=== PATIENT | male | born 1960 | race African-American/Black ===

== ENCOUNTER 2017-03-16 17:36 | Inpatient (IN) | payer OTHER, MEDICARE ==
[~2017-03-16] VITALS: Ht 180.3 cm; Wt 55.4 kg
[~2017-03-16 17:36] MED LIST: ALEN70TA39 PO; ASPI1TAB7 PO; COUM1TAB PO; DILT90TA PO; ENAL20TA81 PO; FERR324T4 PO; MAGN400T PO; PRAV80 PO; SITA100 PO; THIA100T PO; ZETI10TA5 PO
[2017-03-16 17:38] VITALS: BP 120/80; PULSE 86; RESP 12; TEMP 99; O2SAT 98
[2017-03-16 18:24] LABS: WHITE BLOOD COUNT 11.2 TH/MM3 (4.0-11.0)
[2017-03-16 18:25] LABS: AUTOMATED NEUTROPHIL # 7.1 TH/MM3 (1.8-7.7); BASOPHIL # 0.1 TH/MM3 (0-0.2); BASOPHIL % 1.1 % (0.0-2.0); EOSINOPHIL # 0.2 TH/MM3 (0-0.4); EOSINOPHIL % 1.9 % (0.0-4.0); HEMATOCRIT 30.7 % (39.0-51.0); HEMO FLAGS DIFF FINAL; LYMPH % 23.3 % (9.0-44.0); LYMPHOCYTE # 2.6 TH/MM3 (1.0-4.8); MEAN CORPUSCULAR HEMOGLOBIN 22.6 PG (27.0-34.0); MEAN CORPUSCULAR HGB CONC 31.3 % (32.0-36.0); MONO % 10.3 % (0.0-8.0); NEUT % 63.4 % (16.0-70.0); PLATELET COUNT 268 TH/MM3 (150-450); RED BLOOD COUNT 4.26 MIL/MM3 (4.50-5.90); RED CELL DISTRIBUTION WIDTH 21.8 % (11.6-17.2)
--- NOTE | 2017-03-16 18:33 | PD ---
HPI Chief Complaint: Respiratory Symptoms Time Seen by Provider: 18:19 Travel History International Travel<30 days: No Contact w/Intl Traveler<30days: No Traveled to known affect area: No History of Present Illness HPI 56-year-old male with PMH of DM, HTN, CAD VA, AICD, EF 25%, CKD stage III, iron deficiency anemia on Coumadin presents to the ED for evaluation of "a few days" history of worsening shortness of breath, dyspnea on exertion. The patient denies fever, chills, cough, chest pain, abdominal pain, nausea, vomiting, lower extremity edema. He does not use oxygen at home. He is followed by Dr. Eaton, cardiology and Dr. Huntley, PCP. [facility] Past Medical History Atrial Fibrillation: Yes Blood Disorders: No Heart Rhythm Problems: Yes Cancer: No Cardiac Catheterization: Yes Cardiovascular Problems: Yes (CM-AICD, EF 25%) High Cholesterol: No Chest Pain: Yes Congestive Heart Failure: No Cerebrovascular Accident: Yes Diabetes: Yes (METFORMIN) Diminished Hearing: No Endocrine: No Gastrointestinal Disorders: No Genitourinary: No Hypertension: Yes Immune Disorder: No Musculoskeletal: No Neurologic: Yes Psychiatric: No Reproductive: No Respiratory: No Myocardial Infarction: No Past Surgical History AICD: Yes (BIOTRONIC) Body Medical Devices: DEFIBRILLATOR Cardiac Surgery: Yes (DEFIBRILATOR) Coronary Artery Bypass Graft: No Joint Replacement: No Social History Alcohol Use: Yes ("SOMETIMES") Tobacco Use: No Substance Use: Yes (MARIJUANA USE ONCE A WEEK) Allergies-Medications (Allergen,Severity, Reaction): Coded Allergies: No Known Allergies (Verified Allergy, Unknown, 03/16/17) Reported Meds & Prescriptions Reported Meds & Active Scripts Active Reported Vasotec (Enalapril Maleate) 20 Mg Tab 20 Mg PO BID Januvia (Sitagliptin Phosphate) 100 Mg Tab 100 Mg PO DAILY Cardizem (Diltiazem HCl) 60 Mg Tab 180 Mg PO DAILY Alendronate (Alendronate Sodium) 70 Mg Tab 70 Mg PO Q7D Bumetanide 1 Mg Tab 1 Mg PO BID Carvedilol 6.25 Mg Tab 6.25 Mg PO BID Ferrous Sulfate 325 Mg (65 Mg Iron) Tablet 325 Mg PO DAILY Amiodarone (Amiodarone HCl) 200 Mg Tab 200 Mg PO DAILY Tamsulosin (Tamsulosin HCl) 0.4 Mg Cap 0.4 Mg PO DAILY Megestrol Acetate 400 Mg/10 Ml (10 Ml) Oral.susp 400 Mg PO DIRECTED Lyrica (Pregabalin) 50 Mg Cap 50 Mg PO BID Ezetimibe 10 Mg Tab 10 Mg PO HS Metformin (Metformin HCl) 500 Mg Tab 500 Mg PO BIDPC Xarelto (Rivaroxaban) 20 Mg Tab 20 Mg PO DAILY Magnesium Oxide 400 Mg Tab 400 Mg PO DAILY Aspirin EC (Aspirin) 81 Mg Tabdr 81 Mg PO DAILY Vitamin D3 (Cholecalciferol) 1,000 Unit Tab 5,000 Units PO DAILY Review of Systems Except as stated in HPI: all other systems reviewed are Neg Physical Exam Narrative GENERAL: Thin black male in no acute distress. SKIN: Focused skin assessment warm/dry. AICD prominent on the left chest wall with well-healed surgical scar with no signs of infection. HEAD: Normocephalic. EYES: No scleral icterus. No injection or drainage. NECK: Supple, trachea midline. No JVD or lymphadenopathy. CARDIOVASCULAR: Regular rate and rhythm without murmurs, gallops, or rubs. RESPIRATORY: Breath sounds clear and equal bilaterally. Tachypneic. Positive accessory muscle use. GASTROINTESTINAL: Abdomen soft, non-tender, nondistended. Active bowel sounds. MUSCULOSKELETAL: No cyanosis, or edema. BACK: Nontender without obvious deformity. No CVA tenderness. Data Data Last Documented VS Vital Signs Date Time Temp Pulse Resp B/P (MAP) Pulse Ox O2 Delivery O2 Flow Rate FiO2 03/16/17 18:53 82 34 114/55 (74) 99 Nasal Cannula 2.00 03/16/17 17:38 99.0 Orders Orders Complete Blood Count With Diff (03/16/17 17:52) Comprehensive Metabolic Panel (03/16/17 17:52) B-Type Natriuretic Peptide (03/16/17 17:52) Magnesium (Mg) (03/16/17 17:52) Electrocardiogram (03/16/17 17:52) Chest, Pa & Lat (03/16/17 17:52) Troponin I (03/16/17 18:26) Iv Access Insert/Monitor (03/16/17 18:26) Ecg Monitoring (03/16/17 18:26) Oximetry (03/16/17 18:26) Coag Profile (03/16/17 19:31) Furosemide Inj (Lasix Inj) (03/16/17 20:15) Admit Order (Ed Use Only) (03/16/17 20:46) Labs Laboratory Tests Test 03/16/17 18:10 03/16/17 19:50 White Blood Count 11.2 TH/MM3 Red Blood Count 4.26 MIL/MM3 Hemoglobin 9.6 GM/DL Hematocrit 30.7 % Mean Corpuscular Volume 72.0 FL Mean Corpuscular Hemoglobin 22.6 PG Mean Corpuscular Hemoglobin Concent 31.3 % Red Cell Distribution Width 21.8 % Platelet Count 268 TH/MM3 Mean Platelet Volume 8.5 FL Neutrophils (%) (Auto) 63.4 % Lymphocytes (%) (Auto) 23.3 % Monocytes (%) (Auto) 10.3 % Eosinophils (%) (Auto) 1.9 % Basophils (%) (Auto) 1.1 % Neutrophils # (Auto) 7.1 TH/MM3 Lymphocytes # (Auto) 2.6 TH/MM3 Monocytes # (Auto) 1.2 TH/MM3 Eosinophils # (Auto) 0.2 TH/MM3 Basophils # (Auto) 0.1 TH/MM3 CBC Comment DIFF FINAL Differential Comment Blood Urea Nitrogen 65 MG/DL Creatinine 2.62 MG/DL Random Glucose 119 MG/DL Total Protein 8.5 GM/DL Albumin 3.0 GM/DL Calcium Level 9.1 MG/DL Magnesium Level 2.4 MG/DL Alkaline Phosphatase 65 U/L Aspartate Amino Transf (AST/SGOT) 15 U/L Alanine Aminotransferase (ALT/SGPT) 16 U/L Total Bilirubin 0.4 MG/DL Sodium Level 138 MEQ/L Potassium Level 3.9 MEQ/L Chloride Level 101 MEQ/L Carbon Dioxide Level 21.1 MEQ/L Anion Gap 16 MEQ/L Estimat Glomerular Filtration Rate 31 ML/MIN Troponin I 0.05 NG/ML B-Type Natriuretic Peptide 3302 PG/ML Prothrombin Time 17.4 SEC Prothromb Time International Ratio 1.5 RATIO Activated Partial Thromboplast Time 41.5 SEC MDM Medical Decision Making Medical Screen Exam Complete: Yes Emergency Medical Condition: Yes Differential Diagnosis CHF exacerbation versus PNA versus ACS versus metabolic derangement versus other Narrative Course 56-year-old male with PMH of DM, HTN, CAD VA, AICD, EF 25%, CKD stage III on Coumadin presents to the ED for evaluation of "a few days" history of worsening shortness of breath, dyspnea on exertion. The patient denies fever, chills, cough, chest pain, abdominal pain, nausea, vomiting, lower extremity edema. He does not use oxygen at home. He is followed by Dr. Eaton, cardiology and Dr. Huntley, PCP. EKG: Rate 89, paced rhythm. No acute ST changes. Reviewed by Dr. Hardy. CXR: Cardiomegaly with pulmonary vascular engorgement. No infiltrates or effusions per radiology read. Troponin: Negative 1 BNP: 330INR: pending CBC: WBC 11.2. Hemoglobin 9.6. CMP: BUN 65, creatinine 2.62. GFR 31. Per record review baseline creatinine 1.72-1.48. I discussed the results of the workup with the patient's family. They're agreeable to admission. I discussed the patient with Dr. Saldaña who agrees to accept the patient to the medicine service. Please see medicine notes for disposition. Betty Raymond Mar 16, 2017 18:33
[2017-03-16 18:40] VITALS: O2SAT 98
[2017-03-16 18:44] LABS: ALT (GPT) 16 U/L (12-78); ANION GAP 16 MEQ/L (5-15); AST (GOT) 15 U/L (15-37); BICARBONATE 21.1 MEQ/L (21.0-32.0); BLOOD UREA NITROGEN 65 MG/DL (7-18); CHLORIDE 101 MEQ/L (98-107); GLOMERULAR FILTRATION RATE 31 ML/MIN (>89); MAGNESIUM 2.4 MG/DL (1.5-2.5); POTASSIUM 3.9 MEQ/L (3.5-5.1); SODIUM (NA) 138 MEQ/L (136-145)
[2017-03-16 18:47] LABS: ALKALINE PHOSPHATASE 65 U/L (45-117); TOTAL BILIRUBIN ADULT 0.4 MG/DL (0.2-1.0)
[2017-03-16 18:53] VITALS: BP 114/55; PULSE 82; RESP 34; O2SAT 99
[2017-03-16] MEDS ORDERED: BUME1TAB PO (19:00)
[2017-03-16] MEDS ORDERED: CARV6.252 PO (19:00)
[2017-03-16] MEDS ORDERED: TAMS0.4C4 PO (19:00)
[2017-03-16] MEDS ORDERED: METF500T PO (19:00)
[2017-03-16] MEDS ORDERED: LYRI50CA PO (19:00)
[2017-03-16] MEDS ORDERED: AMIO200T PO (19:00)
[2017-03-16] MEDS ORDERED: MAGN400T2 PO (19:00)
[2017-03-16] MEDS ORDERED: EZET1TAB8 PO (19:00)
[2017-03-16] MEDS ORDERED: FERR325T18 PO (19:00)
[2017-03-16] MEDS ORDERED: ALEN1TAB48 PO (19:00)
[2017-03-16] MEDS ORDERED: VITA100064 PO (19:00)
[2017-03-16] MEDS ORDERED: XARE20TA PO (19:00)
[2017-03-16] MEDS ORDERED: ASPI81TA23 PO (19:00)
[2017-03-16] MEDS ORDERED: MEGE5SUS3 PO (19:00)
[2017-03-16] MEDS ORDERED: ENAL20TA81 PO (19:10)
[2017-03-16] MEDS ORDERED: SITA1TAB2 PO (19:10)
[2017-03-16] MEDS ORDERED: DILT60TA33 PO (19:10)
--- NOTE | 2017-03-16 19:38 | RADRPT ---
EXAM DATE/TIME: 03/16/2017 19:13 [facility] COMPARISON: CHEST SINGLE AP, January 31, 2015, 2:33. INDICATIONS : Shortness of breath. MEDICAL HISTORY : Hypercholesterolemia. Hypertension AFIB SURGICAL HISTORY : Defibrilator. ENCOUNTER: Initial ACUITY: 2 weeks PAIN SCORE: 0/10 LOCATION: Bilateral chest FINDINGS: PA and lateral views of the chest show moderate cardiomegaly with pulmonary vascular engorgement. Cep halization of flow noted. No discrete infiltrate or effusion. Pacing device overlies the left chest. Bony structures are unremarkable. CONCLUSION: Cardiomegaly with pulmonary vascular engorgement. No infiltrates or effusions. Reese Skinner Jr., MD on March 16, 2017 at 19:36 Board Certified Radiologist. This report was verified electronically.
[2017-03-16] MEDS ORDERED: FUROSEMIDE 40 MG/4 ML VIAL IV PUSH ONE (20:15)
[2017-03-16 20:44] LABS: APTT (PATIENT) 41.5 SEC (24.3-30.1); INTERNATIONAL NORMALIZED RATIO 1.5 RATIO; PROTHROMBIN TIME - PATIENT 17.4 SEC (9.8-11.6)
--- NOTE | 2017-03-16 20:58 | HHI.HP ---
HPI Service [facility] Primary Care Physician Samir Garcia DO Admission Diagnosis CHF exacerbation, acute on chronic renal failure Diagnoses: (1) CHF (congestive heart failure) (2) Renal insufficiency Diagnosis: Principal (3) A-fib Diagnosis: Principal (4) DM (diabetes mellitus) Diagnosis: Principal Travel History International Travel<30 Days: No Contact w/Intl Traveler <30 Da: No Traveled to Known Affected Are: No History of Present Illness This is a 56-year-old male with a PMH of HTN, Hyperlipidemia, CAD, CHF (Echo w/ EF 35-40%), AICD, Afib on Coumadin and CKD Stage III who presented to the ER w/ complaints of SOB x2-3 days. States symptoms worse w/ exertion. Denies chest pain, cough, fever or sick contacts. On arrival, BP 120/80, HR 86 , O2 sat 98% on RA, Temp 99.0. CBC unremarkable except for diabetes 11.2. Creatinine 2.62, producing 1.72 on 01/31/15. BNP 3302. Troponin 0.05. INR 1.5. CXR with cardiomegaly and pulmonary vascular engorgement, no infiltrates or effusions. S/p Lasix 40mg IV in ER. Review of Systems Except as stated in HPI: all other systems reviewed are Neg ROS: 14 point review of systems otherwise negative. Past Family Social History Past Medical History PMH: HTN, Hyperlipidemia, CAD, CHF (Echo 06/03/13 w/ EF 35-40%), AICD, Afib on Coumadin and CKD Stage III Past Surgical History PAST SURGICAL HISTORY: AICD (Biotronik) Allergies: Coded Allergies: No Known Allergies (Verified Allergy, Unknown, 03/16/17) Family History PAST FAMILY HISTORY: Reviewed, positive for DM and CAD Social History PAST SOCIAL HISTORY: Occasional alcohol. Negative for tobacco. +Marijuana. Physical Exam Vital Signs Vital Signs Date Time Temp Pulse Resp B/P (MAP) Pulse Ox O2 Delivery O2 Flow Rate FiO2 03/16/17 18:53 82 34 114/55 (74) 99 Nasal Cannula 2.00 03/16/17 18:40 98 Room Air 03/16/17 17:38 99.0 86 12 120/80 (93) 98 Physical Exam PE: GENERAL: Pleasant middle-aged black male in no acute distress. HEENT: PERRLA, EOMI. No scleral icterus or conjunctival pallor. No lid lag or facial droop. CARDIOVASCULAR: Regular rate and rhythm. No obvious murmurs to auscultation. No chest tenderness to palpation. Left AICD RESPIRATORY: No obvious rhonchi or wheezing. Clear to auscultation. Breath sounds equal bilaterally. GASTROINTESTINAL: Abdomen soft, non-tender, nondistended. BS normal. MUSCULOSKELETAL: Extremities without clubbing, cyanosis, or edema. No obvious deformities. NEUROLOGICAL: Awake, alert and oriented x4. No focal neurologic deficits. Moving both upper and lower extremities spontaneously. Laboratory Laboratory Tests Test 03/16/17 18:10 03/16/17 19:50 White Blood Count 11.2 Red Blood Count 4.26 Hemoglobin 9.6 Hematocrit 30.7 Mean Corpuscular Volume 72.0 Mean Corpuscular Hemoglobin 22.6 Mean Corpuscular Hemoglobin Concent 31.3 Red Cell Distribution Width 21.8 Platelet Count 268 Mean Platelet Volume 8.5 Neutrophils (%) (Auto) 63.4 Lymphocytes (%) (Auto) 23.3 Monocytes (%) (Auto) 10.3 Eosinophils (%) (Auto) 1.9 Basophils (%) (Auto) 1.1 Neutrophils # (Auto) 7.1 Lymphocytes # (Auto) 2.6 Monocytes # (Auto) 1.2 Eosinophils # (Auto) 0.2 Basophils # (Auto) 0.1 CBC Comment DIFF FINAL Differential Comment Blood Urea Nitrogen 65 Creatinine 2.62 Random Glucose 119 Total Protein 8.5 Albumin 3.0 Calcium Level 9.1 Magnesium Level 2.4 Alkaline Phosphatase 65 Aspartate Amino Transf (AST/SGOT) 15 Alanine Aminotransferase (ALT/SGPT) 16 Total Bilirubin 0.4 Sodium Level 138 Potassium Level 3.9 Chloride Level 101 Carbon Dioxide Level 21.1 Anion Gap 16 Estimat Glomerular Filtration Rate 31 Troponin I 0.05 Prothrombin Time 17.4 Prothromb Time International Ratio 1.5 Activated Partial Thromboplast Time 41.5 Result Diagram: 03/16/17180903/16/171809 Caprini VTE Risk Assessment Caprini VTE Risk Assessment: Mod/High Risk (score >= 2) Caprini Risk Assessment Model Point Value = 1 Point Value = 2 Point Value = 3 Point Value = 5 Age 41-60 Minor surgery BMI > 25 kg/m2 Swollen legs Varicose veins or History of unexplained or recurrent spontaneous Oral contraceptives or hormone replacement Sepsis (< 1 month) Serious lung disease, including pneumonia (< 1 month) Abnormal pulmonary function Acute myocardial infarction Congestive heart failure (< 1 month) History of inflammatory bowel disease Medical patient at bed rest Age 61-74 Arthroscopic surgery Major open surgery (> 45 min) Laparoscopic surgery (> 45 min) Malignancy Confined to bed (> 72 hours) Immobilizing plaster cast Central venous access Age >= 75 History of VTE Family history of VTE Factor V Leiden Prothrombin [id number] Lupus anticoagulant Anticardiolipin antibodies Elevated serum homocysteine Heparin-induced thrombocytopenia Other congenital or acquired thrombophilia Stroke (< 1 month) Elective arthroplasty Hip, pelvis, or leg fracture Acute spinal cord injury (< 1 month) Prophylaxis Regimen Total Risk Factor Score Risk Level Prophylaxis Regimen 0-1 Low Early ambulation 2 Moderate Order ONE of the following: *Sequential Compression Device (SCD) *Heparin 5000 units SQ BID 3-4 Higher Order ONE of the following medications: *Heparin 5000 units SQ TID *Enoxaparin/Lovenox 40 mg SQ daily (WT < 150 kg, CrCl > 30 mL/min) *Enoxaparin/Lovenox 30 mg SQ daily (WT < 150 kg, CrCl > 10-29 mL/min) *Enoxaparin/Lovenox 30 mg SQ BID (WT < 150 kg, CrCl > 30 mL/min) AND/OR *Sequential Compression Device (SCD) 5 or more Highest Order ONE of the following medications: *Heparin 5000 units SQ TID (Preferred with Epidurals) *Enoxaparin/Lovenox 40 mg SQ daily (WT < 150 kg, CrCl > 30 mL/min) *Enoxaparin/Lovenox 30 mg SQ daily (WT < 150 kg, CrCl > 10-29 mL/min) *Enoxaparin/Lovenox 30 mg SQ BID (WT < 150 kg, CrCl > 30 mL/min) AND *Sequential Compression Device (SCD) Assessment and Plan Problem List: (1) CHF (congestive heart failure) ICD Code: I50.9 - Heart failure, unspecified (2) A-fib ICD Code: I48.91 - Unspecified atrial fibrillation (3) Renal insufficiency ICD Code: N28.9 - Disorder of kidney and ureter, unspecified (4) DM (diabetes mellitus) ICD Code: E11.9 - DM (diabetes mellitus) Status: Chronic Assessment and Plan A/P: 1. CHF: Acute on Chronic. Systolic. Echo 06/03/13 w/ EF 35-40%, h/o AICD ( Biotronik), BNP 3302, CXR w/ pulmonary vascular engorgement, images reviewed by me. S/p Lasix 40mg IV in ER, will continue w/ diuresis, monitor I/O, repeat BNP in am. 2. A-fib: Chronic. On Xarelto and Cardizem, will resume. 3. Renal Insufficiency: Acute on Chronic. Creatinine 2.62, producing 1.72 on 01/31/15. Hold Enalapril. Monitor I/O. Repeat labs in am. Caution w/ diuretics 4. DM: Sliding scale w/ Accu-Cheks. Hold Metformin in light of renal insufficiency 5. DVT Prophylaxis: Resume Xarelto 6. Social work for d/c planning as needed. 7. Case discussed w/ ER physician at length. Aura Saldaña MD Mar 16, 2017 20:58
[2017-03-16] MEDS ORDERED: GLUCAGON 1 MG/ML VIAL OTHER PRN (21:00)
[2017-03-16] MEDS ORDERED: MAGNESIUM HYDROXIDE SUSP 30 ML CUP PO PRN (21:00)
[2017-03-16] MEDS ORDERED: BISACODYL 10 MG SUPP RECTAL PRN (21:00)
[2017-03-16] MEDS ORDERED: MORPHINE SULFATE 4 MG/ML INJ IV PUSH PRN (21:00)
[2017-03-16] MEDS ORDERED: INSULIN ASPART SUPPLEMENTAL SCALE SQ SCH (21:00)
[2017-03-16] MEDS ORDERED: ONDANSETRON HCL 4 MG/2 ML VIAL IVP PRN (21:00)
[2017-03-16] MEDS ORDERED: DEXTROSE 50% IN WATER 50 ML VIAL(D50) IV PUSH PRN (21:00)
[2017-03-16] MEDS ORDERED: ACETAMINOPHEN 325 MG TAB PO PRN (21:00)
[2017-03-16] MEDS ORDERED: SENNOSIDES 8.6 MG TAB PO PRN (21:00)
[2017-03-16] MEDS ORDERED: LACTULOSE SYRUP 20 GM/30 ML CUP PO PRN (21:00)
[2017-03-16] MEDS ORDERED: SODIUM CHLORIDE 0.9% FLUSH 10 ML FLUSH IV FLUSH PRN (21:00)
[2017-03-16 22:13] VITALS: BP 87/55; PULSE 79; RESP 20; TEMP 97.5; O2SAT 98
[2017-03-16] MEDS: SODIUM CHLORIDE 0.9% FLUSH 10 ML FLUSH IV FLUSH SCH (22:24)
[2017-03-16] MEDS: DOCUSATE SODIUM 50 MG/SENNA 8.6 MG TAB PO SCH (22:24)
[2017-03-17] VITALS (10 sets, daily range): BP systolic 93–120; BP diastolic 43–52; PULSE 73–89; RESP 19–28; TEMP 96.3–97.9; O2SAT 96–100
[2017-03-17 07:02] LABS: AUTOMATED NEUTROPHIL # 4.2 TH/MM3 (1.8-7.7); BASOPHIL # 0.1 TH/MM3 (0-0.2); BASOPHIL % 1.4 % (0.0-2.0); EOSINOPHIL # 0.2 TH/MM3 (0-0.4); EOSINOPHIL % 2.2 % (0.0-4.0); HEMATOCRIT 27.3 % (39.0-51.0); HEMO FLAGS DIFF FINAL; LYMPH % 32.1 % (9.0-44.0); LYMPHOCYTE # 2.5 TH/MM3 (1.0-4.8); MEAN CELL VOLUME 71.5 FL (80.0-100.0); MEAN CORPUSCULAR HEMOGLOBIN 22.7 PG (27.0-34.0); MEAN CORPUSCULAR HGB CONC 31.7 % (32.0-36.0); MONO % 9.9 % (0.0-8.0); NEUT % 54.4 % (16.0-70.0); PLATELET COUNT 248 TH/MM3 (150-450); RED BLOOD COUNT 3.81 MIL/MM3 (4.50-5.90); RED CELL DISTRIBUTION WIDTH 21.6 % (11.6-17.2); WHITE BLOOD COUNT 7.7 TH/MM3 (4.0-11.0)
[2017-03-17 07:36] LABS: ALT (GPT) 12 U/L (12-78); ANION GAP 12 MEQ/L (5-15); AST (GOT) 13 U/L (15-37); BICARBONATE 22.3 MEQ/L (21.0-32.0); BLOOD UREA NITROGEN 70 MG/DL (7-18); CHLORIDE 104 MEQ/L (98-107); GLOMERULAR FILTRATION RATE 32 ML/MIN (>89); POTASSIUM 3.8 MEQ/L (3.5-5.1); SODIUM (NA) 138 MEQ/L (136-145)
[2017-03-17 07:37] LABS: ALKALINE PHOSPHATASE 71 U/L (45-117); TOTAL BILIRUBIN ADULT 0.5 MG/DL (0.2-1.0)
[2017-03-17] MEDS: FUROSEMIDE 40 MG/4 ML VIAL IV PUSH SCH ×3 (08:05→18:06)
[2017-03-17 08:06] LABS: TRANSFERRIN IRON PROFILE 187 MG/DL (200-360)
[2017-03-17 08:08] LABS: FERRITIN 33 NG/ML (26-388)
[2017-03-17] MEDS: DOCUSATE SODIUM 50 MG/SENNA 8.6 MG TAB PO SCH ×2 (08:20→20:31)
[2017-03-17] MEDS: SODIUM CHLORIDE 0.9% FLUSH 10 ML FLUSH IV FLUSH SCH ×2 (08:20→20:31)
[2017-03-17] MEDS: CARVEDILOL 6.25 MG TAB PO SCH ×2 (09:00→20:31)
[2017-03-17] MEDS: TAMSULOSIN HCL 0.4 MG CAP PO SCH (09:00)
[2017-03-17] MEDS: INSULIN ASPART SUPPLEMENTAL SCALE SQ SCH ×4 (09:00→20:41)
[2017-03-17] MEDS ORDERED: DILTIAZEM HCL 60 MG TAB PO SCH (09:00)
[2017-03-17] MEDS: PREGABALIN 25 MG CAP PO SCH ×2 (10:37→20:32)
[2017-03-17] MEDS: CHOLECALCIFEROL (VIT D3) 5000 UNIT CAP PO SCH (10:37)
[2017-03-17] MEDS: MAGNESIUM OXIDE 400 MG TAB PO SCH ×2 (10:38→12:34)
[2017-03-17] MEDS: ASPIRIN EC 81 MG TABEC PO SCH (10:38)
[2017-03-17] MEDS: AMIODARONE 200 MG TAB PO SCH (10:38)
[2017-03-17] MEDS: FERROUS SULFATE 325 MG (65 MG ELEMENTAL IRON) TAB PO SCH (11:25)
[2017-03-17] MEDS: RIVAROXABAN 15 MG TAB PO SCH (11:26)
--- NOTE | 2017-03-17 13:30 | HHI.PR ---
Subjective Remarks Follow-up heart failure. Complaining of shortness of breath on nasal cannula. Patient did not receive late IV Lasix this morning secondary to low BP. Discussed with RN and nephrology Objective Vitals Vital Signs Date Time Temp Pulse Resp B/P (MAP) Pulse Ox O2 Delivery O2 Flow Rate FiO2 03/17/17 12:24 22 03/17/17 12:00 97.4 89 22 99/43 (61) 99 03/17/17 07:14 97.7 79 105/46 (65) 100 03/17/17 03:27 97.9 78 19 106/49 (68) 98 03/17/17 01:33 77 03/17/17 01:19 97.3 75 22 107/49 (68) 96 03/16/17 22:18 03/16/17 22:13 97.5 79 20 87/55 (66) 98 03/16/17 18:53 82 34 114/55 (74) 99 Nasal Cannula 2.00 03/16/17 18:40 98 Room Air 03/16/17 17:38 99.0 86 12 120/80 (93) 98 I/O 03/16/17 03/16/17 03/16/17 03/17/17 03/17/17 03/17/17 07:00 15:00 23:00 07:00 15:00 23:00 Output Total 250 ml Balance -250 ml Output Urine Total 250 ml Result Diagram: 03/17/17 0555 03/17/17 0555 Imaging Last Impressions Chest X-Ray 03/16/17 346 Signed Impressions: Service Date/Time: March 19:13 - CONCLUSION: Cardiomegaly with pulmonary vascular engorgement. No infiltrates or effusions. Reese Skinner Jr., MD Objective Remarks GENERAL: Pleasant middle-aged black male in mild respiratory distress. HEENT: PERRLA, EOMI. No scleral icterus or conjunctival pallor. No lid lag or facial droop. CARDIOVASCULAR: Irregularly irregular with systolic murmur. Left AICD RESPIRATORY: No obvious rhonchi or wheezing. Clear to auscultation. Breath sounds equal bilaterally. GASTROINTESTINAL: Abdomen soft, non-tender, nondistended. BS normal. MUSCULOSKELETAL: Extremities without clubbing, cyanosis, or edema. No obvious deformities. NEUROLOGICAL: Awake, alert and oriented x4. No focal neurologic deficits. Moving both upper and lower extremities spontaneously. Procedures none A/P Problem List: (1) CHF (congestive heart failure) ICD Code: I50.9 - Heart failure, unspecified (2) A-fib ICD Code: I48.91 - Unspecified atrial fibrillation (3) Renal insufficiency ICD Code: N28.9 - Disorder of kidney and ureter, unspecified (4) DM (diabetes mellitus) ICD Code: E11.9 - DM (diabetes mellitus) Status: Chronic Assessment and Plan 1. CHF: Acute on Chronic. Systolic. Echo 06/03/13 w/ EF 35-40%, h/o AICD ( Biotronik), BNP 3302, CXR w/ pulmonary vascular engorgement, images reviewed by me. S/p Lasix 40mg IV in ER, will continue w/ diuresis, monitor I/O, repeat 2- D echo. Patient with borderline BP limiting therapeutic options Milrinone and on and will transfer patient to [facility]. Consult patient's statistics intern 2. A-fib: Chronic. On Xarelto, amiodarone and Coreg, will resume. 3. Renal Insufficiency: Acute on Chronic stage III. Creatinine 2.62, producing 1.72 on 01/31/15. Hold Enalapril. Monitor I/O. Repeat labs in am. Caution w/ diuretics. Nephrology consulted 4. DM: Sliding scale w/ Accu-Cheks. Hold Metformin in light of renal insufficiency 5. DVT Prophylaxis: Resume Xarelto, we will consider switching to Eliquis Discharge Planning Not ready for discharge Frederick Hammond MD Mar 17, 2017 13:30
--- NOTE | 2017-03-17 15:57 | PD.CONS ---
[facility] Service Nephrology Consult Requested By Dr. Hammond Reason for Consult Acute on chronic kidney disease Primary Care Physician Samir Garcia, DO History of Present Illness Mr. Golden is a 56 year old male with history of chronic systolic heart failure. His EF is less than 20%. Patient had upgrade to biventricular AICD in August of this year from a single chamber pacer. He developed FELECIA during that hospital stay, required dialysis. His renal function improved. In February he was admitted with GI bleeding. Underwent EGD, apparently did not have active bleeding. In January his creatinine was 1.73. He is now admitted with shortness of breath. Denies chest pain. His renal function is worse. Patient is visibly tachypneic. Review of Systems Constitutional: COMPLAINS OF: Fatigue, Change in appetite Cardiovascular: COMPLAINS OF: Palpitations, Dyspnea on Exertion, PND, Lower Extremity Edema, DENIES: Chest pain Past Family Social History Allergies: Coded Allergies: No Known Allergies (Verified Allergy, Unknown, 03/16/17) Past Medical History CHF CKD Type 2 diabetes Atrial fibrillation Reported Medications Vasotec (Enalapril Maleate) 20 Mg Tab 20 Mg PO BID Januvia (Sitagliptin Phosphate) 100 Mg Tab 100 Mg PO DAILY Cardizem (Diltiazem HCl) 60 Mg Tab 180 Mg PO DAILY Alendronate (Alendronate Sodium) 70 Mg Tab 70 Mg PO Q7D Bumetanide 1 Mg Tab 1 Mg PO BID Carvedilol 6.25 Mg Tab 6.25 Mg PO BID Ferrous Sulfate 325 Mg (65 Mg Iron) Tablet 325 Mg PO DAILY Amiodarone (Amiodarone HCl) 200 Mg Tab 200 Mg PO DAILY Tamsulosin (Tamsulosin HCl) 0.4 Mg Cap 0.4 Mg PO DAILY Megestrol Acetate 400 Mg/10 Ml (10 Ml) Oral.susp 400 Mg PO DIRECTED Lyrica (Pregabalin) 50 Mg Cap 50 Mg PO BID Ezetimibe 10 Mg Tab 10 Mg PO HS Metformin (Metformin HCl) 500 Mg Tab 500 Mg PO BIDPC Xarelto (Rivaroxaban) 20 Mg Tab 20 Mg PO DAILY Magnesium Oxide 400 Mg Tab 400 Mg PO DAILY Aspirin EC (Aspirin) 81 Mg Tabdr 81 Mg PO DAILY Vitamin D3 (Cholecalciferol) 1,000 Unit Tab 5,000 Units PO DAILY Active Ordered Medications Current Medications Medications (Trade) Dose Ordered Sig/George Route Start Time Stop Time Status Last Admin (D50w (Vial) Inj) 50 ml UNSCH PRN IV PUSH 03/16/17 21:00 (Glucagon Inj) 1 mg UNSCH PRN OTHER 03/16/17 21:00 (Lasix Inj) 40 mg BID@09,18 IV PUSH 03/17/17 09:00 03/17/17 12:34 (NS Flush) 2 ml UNSCH PRN IV FLUSH 03/16/17 21:00 (NS Flush) 2 ml BID IV FLUSH 03/16/17 21:00 03/17/17 08:20 (Zofran Inj) 4 mg Q6H PRN IVP 03/16/17 21:00 (Tylenol) 650 mg Q6H PRN PO 03/16/17 21:00 ([place] 5-325 Mg) 1 tab Q4H PRN PO 03/16/17 21:00 (Morphine Inj) 2 mg Q3H PRN IV PUSH 03/16/17 21:00 (Daja-Colace) 1 tab BID PO 03/16/17 21:00 03/17/17 08:20 (Senokot) 17.2 mg Q12H PRN PO 03/16/17 21:00 (Dulcolax Supp) 10 mg DAILY PRN RECTAL 03/16/17 21:00 (Lactulose Liq) 30 ml DAILY PRN PO 03/16/17 21:00 (NovoLOG SUPPLEMENTAL SCALE) 1 ACHS SLIDING SCALE SQ 03/17/17 09:00 (Cordarone) 200 mg DAILY PO 03/17/17 09:00 03/17/17 10:38 (Ecotrin Ec) 81 mg DAILY PO 03/17/17 09:00 03/17/17 10:38 (Coreg) 6.25 mg BID PO 03/17/17 09:00 (Vitamin D3) 5,000 units DAILY PO 03/17/17 09:00 03/17/17 10:37 (Zetia) 10 mg HS PO 03/17/17 21:00 (Ferrous Sulfate) 325 mg DAILY PO 03/17/17 09:00 03/17/17 11:25 (Mag-Ox) 400 mg DAILY@1100 PO 03/17/17 11:00 03/17/17 12:34 (Lyrica) 50 mg BID PO 03/17/17 09:00 03/17/17 10:37 (Xarelto) 15 mg DAILY PO 03/17/17 09:15 03/17/17 11:26 (Januvia) 50 mg DAILY PO 03/17/17 09:15 03/17/17 11:26 (Flomax) 0.4 mg DAILY PO 03/17/17 09:00 Family History reviewed, non contributory Social History no tobacco Occasional ETOH Smokes Marijuana Physical Exam Vital Signs Vital Signs Date Time Temp Pulse Resp B/P (MAP) Pulse Ox O2 Delivery O2 Flow Rate FiO2 03/17/17 12:24 22 03/17/17 12:00 97.4 89 22 99/43 (61) 99 03/17/17 07:14 97.7 79 105/46 (65) 100 03/17/17 03:27 97.9 78 19 106/49 (68) 98 03/17/17 01:33 77 03/17/17 01:19 97.3 75 22 107/49 (68) 96 03/16/17 22:18 03/16/17 22:13 97.5 79 20 87/55 (66) 98 03/16/17 18:53 82 34 114/55 (74) 99 Nasal Cannula 2.00 03/16/17 18:40 98 Room Air 03/16/17 17:38 99.0 86 12 120/80 (93) 98 Physical Exam GENERAL: frail, weak, chronically ill. SKIN: Warm and dry. HEAD: Normocephalic. EYES: No scleral icterus. No injection or drainage. NECK: Supple, trachea midline. JVD CARDIOVASCULAR: irregular, S3, RESPIRATORY: bilateral rhonchi, wheezing. GASTROINTESTINAL: Abdomen soft, non-tender, nondistended. MUSCULOSKELETAL: No cyanosis, 1+ edema. BACK: Nontender without obvious deformity. No CVA tenderness. Laboratory Laboratory Tests Test 03/16/17 18:10 03/16/17 19:50 03/17/17 05:55 White Blood Count 11.2 7.7 Red Blood Count 4.26 3.81 Hemoglobin 9.6 8.7 Hematocrit 30.7 27.3 Mean Corpuscular Volume 72.0 71.5 Mean Corpuscular Hemoglobin 22.6 22.7 Mean Corpuscular Hemoglobin Concent 31.3 31.7 Red Cell Distribution Width 21.8 21.6 Platelet Count 268 248 Mean Platelet Volume 8.5 8.7 Neutrophils (%) (Auto) 63.4 54.4 Lymphocytes (%) (Auto) 23.3 32.1 Monocytes (%) (Auto) 10.3 9.9 Eosinophils (%) (Auto) 1.9 2.2 Basophils (%) (Auto) 1.1 1.4 Neutrophils # (Auto) 7.1 4.2 Lymphocytes # (Auto) 2.6 2.5 Monocytes # (Auto) 1.2 0.8 Eosinophils # (Auto) 0.2 0.2 Basophils # (Auto) 0.1 0.1 CBC Comment DIFF FINAL DIFF FINAL Differential Comment Blood Urea Nitrogen 65 70 Creatinine 2.62 2.54 Random Glucose 119 101 Total Protein 8.5 7.4 Albumin 3.0 2.6 Calcium Level 9.1 8.5 Magnesium Level 2.4 Alkaline Phosphatase 65 71 Aspartate Amino Transf (AST/SGOT) 15 13 Alanine Aminotransferase (ALT/SGPT) 16 12 Total Bilirubin 0.4 0.5 Sodium Level 138 138 Potassium Level 3.9 3.8 Chloride Level 101 104 Carbon Dioxide Level 21.1 22.3 Anion Gap 16 12 Estimat Glomerular Filtration Rate 31 32 Troponin I 0.05 B-Type Natriuretic Peptide 3302 Prothrombin Time 17.4 Prothromb Time International Ratio 1.5 Activated Partial Thromboplast Time 41.5 Iron Level 15 Total Iron Binding Capacity 262 Percent Iron Saturation 5.7 Ferritin 33 Result Diagram: 03/17/1755 03/17/1755 Assessment and Plan Problem List: (1) Acute kidney injury superimposed on chronic kidney disease ICD Codes: N17.9 - Acute kidney failure, unspecified; N18.9 - Chronic kidney disease, unspecified Plan: He has underlying stage III to IV CKD, may have nephrosclerosis. FELECIA could be due to decompensated CHF, increased renal venous pressure. He has cardiorenal syndrome. Patient's prognosis is very poor. Continue Lasix at this time. Needs cardiology evaluation. Avoid nephrotoxic agents. (2) Chronic systolic congestive heart failure ICD Codes: I50.22 - Chronic systolic (congestive) heart failure Plan: See above. Continue diuretics. (3) Atrial fibrillation ICD Codes: I48.91 - Unspecified atrial fibrillation Plan: The dose of Xarelto will have to be reduced to 15 mg PO daily. Rate controlled. (4) Type 2 diabetes mellitus ICD Codes: E11.9 - Type 2 diabetes mellitus without complications Plan: Avoid Metformin. Insulin coverage, maintain blood glucose between 140 and 180 while hospitalized. Assessment and Plan Thanks for the consult. As mentioned above, his prognosis is very poor. Doc Salazar MD Mar 17, 2017 15:57
--- NOTE | 2017-03-17 18:15 | EKG ---
Date Performed: 03/16/2017 Time Performed: 18:23:51 PTAGE: 56 years EKG: ELECTRONIC VENTRICULAR PACEMAKER ABNORMAL RHYTHM ECG PREVIOUS TRACING : 01/31/2015 02.09 DOCTOR: Madeline Voss Interpretating Date/Time 03/17/2017 18:12:00
[2017-03-17] MEDS: EZETIMIBE 10 MG TAB PO SCH (20:40)
[2017-03-18] VITALS (14 sets, daily range): BP systolic 95–155; BP diastolic 50–82; PULSE 66–86; RESP 22–28; TEMP 96.5–97.6; O2SAT 95–100
[2017-03-18] MEDS ORDERED: diphenhydrAMINE HCL 25 MG CAP PO ONE (00:15)
[2017-03-18] MEDS: INSULIN ASPART SUPPLEMENTAL SCALE SQ SCH ×4 (08:00→21:02)
[2017-03-18] MEDS: CARVEDILOL 6.25 MG TAB PO SCH ×2 (09:00→21:01)
[2017-03-18] MEDS: TAMSULOSIN HCL 0.4 MG CAP PO SCH ×2 (09:00→09:31)
[2017-03-18] MEDS: ASPIRIN EC 81 MG TABEC PO SCH (09:31)
[2017-03-18] MEDS: FERROUS SULFATE 325 MG (65 MG ELEMENTAL IRON) TAB PO SCH (09:31)
[2017-03-18] MEDS: CHOLECALCIFEROL (VIT D3) 5000 UNIT CAP PO SCH (09:31)
[2017-03-18] MEDS: PREGABALIN 25 MG CAP PO SCH ×2 (09:31→21:01)
[2017-03-18] MEDS: AMIODARONE 200 MG TAB PO SCH (09:32)
[2017-03-18] MEDS: RIVAROXABAN 15 MG TAB PO SCH (09:32)
[2017-03-18] MEDS: DOCUSATE SODIUM 50 MG/SENNA 8.6 MG TAB PO SCH ×2 (09:32→21:01)
[2017-03-18] MEDS: SODIUM CHLORIDE 0.9% FLUSH 10 ML FLUSH IV FLUSH SCH ×2 (09:32→21:05)
[2017-03-18 09:44] LABS: BICARBONATE 21.7 MEQ/L (21.0-32.0); MAGNESIUM 2.4 MG/DL (1.5-2.5); POTASSIUM 4.2 MEQ/L (3.5-5.1)
[2017-03-18] MEDS ORDERED: DOBUTamine PREMIX DRIP 250 ML IV PRN (10:50)
--- NOTE | 2017-03-18 10:57 | HHI.NPPN ---
Subjective History of Present Illness Patient with Cardiomyopathy, ARF, AICD Additional Remarks SOB on exertion Objective Data Data Vital Signs Date Time Temp Pulse Resp B/P (MAP) Pulse Ox O2 Delivery O2 Flow Rate FiO2 03/18/17 08:12 97.5 76 22 95/54 (68) 95 03/18/17 03:51 97.6 75 28 155/57 (89) 98 03/17/17 23:09 96.3 73 26 110/50 (70) 97 03/17/17 20:05 97.7 85 28 120/49 (72) 98 03/17/17 20:00 85 03/17/17 17:28 83 03/17/17 16:28 97.7 83 22 93/52 (66) 99 03/17/17 12:24 22 03/17/17 12:00 97.4 89 22 99/43 (61) 99 -: 03/17/17 0555 03/18/17 0830 Physical Exam General Appearance: Well Developed Eyes Eye Exam: Pupils Equal Pulmonary Resp Exam: Decreased Bases, Diminished Breath Sounds Cardiology CV Exam: Irregular Gastrointestinal/Abdomen GI Exam: Soft, Bowel Sounds Present Extremeties Extremities Exam: Trace Edema Neurologic Neuro Exam: Alert Assessment/Plan Problem List: (1) Acute kidney injury superimposed on chronic kidney disease ICD Codes: N17.9 - Acute kidney failure, unspecified; N18.9 - Chronic kidney disease, unspecified Plan: He has underlying stage III to IV CKD, may have nephrosclerosis. FELECIA could be due to decompensated CHF, increased renal venous pressure. He has cardiorenal syndrome. I will transfer for Dobutamine infusion as ARF getting worse need a PICC line I agree as he is not on dialysis he will benefit from dobutamine infusion as his ARF will improve consider Cardiology consult (2) Chronic systolic congestive heart failure ICD Codes: I50.22 - Chronic systolic (congestive) heart failure Plan: See above. Continue diuretics. (3) Atrial fibrillation ICD Codes: I48.91 - Unspecified atrial fibrillation Plan: The dose of Xarelto will have to be reduced to 15 mg PO daily. Rate controlled. (4) Type 2 diabetes mellitus ICD Codes: E11.9 - Type 2 diabetes mellitus without complications Plan: Avoid Metformin. Insulin coverage, maintain blood glucose between 140 and 180 while hospitalized. Lanny Lo MD Mar 18, 2017 10:57
[2017-03-18] MEDS: MAGNESIUM OXIDE 400 MG TAB PO SCH (11:59)
--- NOTE | 2017-03-18 12:18 | HHI.PR ---
Subjective Remarks Follow-up acute systolic heart failure. Still complaining of shortness of breath on oxygen. Urine output only 575 mL last 24 hours. Discussed with cardiology and nephrology, transferred to [facility] for dobutamine drip after central line placement. Objective Vitals Vital Signs Date Time Temp Pulse Resp B/P (MAP) Pulse Ox O2 Delivery O2 Flow Rate FiO2 03/18/17 12:07 97.5 83 24 96/53 (67) 100 03/18/17 08:12 97.5 76 22 95/54 (68) 95 03/18/17 03:51 97.6 75 28 155/57 (89) 98 03/17/17 23:09 96.3 73 26 110/50 (70) 97 03/17/17 20:05 97.7 85 28 120/49 (72) 98 03/17/17 20:00 85 03/17/17 17:28 83 03/17/17 16:28 97.7 83 22 93/52 (66) 99 03/17/17 12:24 22 I/O 03/17/17 03/17/17 03/17/17 03/18/17 03/18/17 03/18/17 07:00 15:00 23:00 07:00 15:00 23:00 Output Total 250 ml 275 ml 300 ml Balance -250 ml -275 ml -300 ml Output Urine Total 250 ml 275 ml 300 ml Bladder Scan Volume Amount 199 ml Result Diagram: 03/17/17 0555 03/18/17 0830 Imaging Last Impressions Chest X-Ray 03/16/17 1752 Signed Impressions: Service Date/Time: March 19:13 - CONCLUSION: Cardiomegaly with pulmonary vascular engorgement. No infiltrates or effusions. Reese Skinner Jr., MD Objective Remarks GENERAL: Pleasant middle-aged black male in mild respiratory distress. HEENT: PERRLA, EOMI. No scleral icterus or conjunctival pallor. No lid lag or facial droop. Positive JVD CARDIOVASCULAR: Irregularly irregular with systolic murmur. Left AICD RESPIRATORY: No obvious rhonchi or wheezing. Decreased Breath sounds equal bilaterally. GASTROINTESTINAL: Abdomen soft, non-tender, nondistended. BS normal. MUSCULOSKELETAL: Extremities without clubbing, cyanosis, or edema. No obvious deformities. NEUROLOGICAL: Awake, alert and oriented x4. No focal neurologic deficits. Moving both upper and lower extremities spontaneously. Procedures none A/P Problem List: (1) CHF (congestive heart failure) ICD Code: I50.9 - Heart failure, unspecified (2) A-fib ICD Code: I48.91 - Unspecified atrial fibrillation (3) Renal insufficiency ICD Code: N28.9 - Disorder of kidney and ureter, unspecified (4) DM (diabetes mellitus) ICD Code: E11.9 - DM (diabetes mellitus) Status: Chronic Assessment and Plan 1. CHF: Acute on Chronic. Systolic with cardiorenal syndrome. Patient will be transferred to [facility] for dobutamine drip after central line placement. Increase Lasix to 20 mg IV every 8 hours. Consider Bumex drip. Strict I/O and monitor weight. Follow-up 2-D echo 2. A-fib: Chronic. On Xarelto, amiodarone and Coreg, will resume. 3. Renal Insufficiency: Acute on Chronic stage III. Were secondary to #1. Hold Enalapril. Repeat labs in am. Caution w/ diuretics. 4. DM: Sliding scale w/ Accu-Cheks. Hold Metformin in light of renal insufficiency 5. DVT Prophylaxis: Resume Xarelto, we will consider switching to Eliquis Poor prognosis consider palliative care Discharge Planning Transfer to [facility] Frederick Hammond MD Mar 18, 2017 12:18
[2017-03-18] MEDS: FUROSEMIDE 40 MG/4 ML VIAL IV PUSH SCH ×2 (13:47→21:06)
--- NOTE | 2017-03-18 14:10 | ECHRPT ---
Indication: HEART FAILURE CONCLUSIONS Moderately dilated left ventricle. Wall thickness is normal. The left ventricular systolic function is severely reduced with an estimated ejection fraction less than 20%. There is global left ventricular dysfunction. A pacemaker wire is noted. The left atrial size is [id number] dilated. The right atrial size is moderately dilated. There is a pacemaker wire present in the right atrial cavity. Severe mitral valve regurgitation. There is moderate to severe tricuspid valve regurgitation. The estimated pulmonary arterial pressure is 58 mmHg. Mild pulmonary valve regurgitation. BP: 99 / 43 HR: Rhythm: Sinus MEASUREMENTS (Male / Female) Normal Values Technical Quality:Good 2D ECHO LV Diastolic Diameter PLAX 6.9 cm 4.2 - 5.9 / 3.9 - 5.3 cm LV Systolic Diameter PLAX 6.5 cm IVS Diastolic Thickness 0.9 cm 0.6 - 1.0 / 0.6 - 0.9 cm LVPW Diastolic Thickness 0.9 cm 0.6 - 1.0 / 0.6 - 0.9 cm LV Relative Wall Thickness 0.3 RV Internal Dim ED PLAX 3.2 cm LVOT Diameter 2.5 cm Aortic Root Diameter 3.3 cm LA Systolic Diameter LX 5.1 cm 3.0 - 4.0 / 2.7 - 3.8 cm M-MODE AV Cusp Separation MM 2.1 cm DOPPLER AV Peak Velocity 99.1 cm/s AV Peak Gradient 3.9 mmHg AV Mean Gradient 2.0 mmHg AV Velocity Time Integral 13.7 cm LVOT Peak Velocity 51.9 cm/s LVOT Peak Gradient 1.1 mmHg LVOT Velocity Time Integral 6.4 cm AV Area Cont Eq vti 2.3 cm AV Area Cont Eq pk 2.6 cm LV E' Lateral Velocity 10.0 cm/s LV E' Septal Velocity 8.5 cm/s TR Peak Velocity 346.0 cm/s TR Peak Gradient 47.9 mmHg Right Atrial Pressure 10.0 mmHg Pulmonary Artery Systolic Pressu 57.9 mmHg Right Ventricular Systolic Press 57.9 mmHg PV Peak Velocity 51.9 cm/s PV Peak Gradient 1.1 mmHg FINDINGS LEFT VENTRICLE Moderately dilated left ventricle. Wall thickness is normal. The left ventricular systolic function is severely reduced with an estimated ejection fraction less than 20%. There is global left ventricular dysfunction. RIGHT VENTRICLE A pacemaker wire is noted. LEFT ATRIUM The left atrial size is urrcossx-[id number] dilated. RIGHT ATRIUM The right atrial size is moderately dilated. There is a pacemaker wire present in the right atrial cavity. ATRIAL SEPTUM Normal atrial septal thickness without atrial level shunting by limited color doppler interrogation. AORTA The aortic root and proximal ascending aorta are normal in size on limited imaging. MITRAL VALVE Severe mitral valve regurgitation. AORTIC VALVE Trileaflet aortic valve. No aortic valve stenosis or regurgitation. TRICUSPID VALVE There is moderate to severe tricuspid valve regurgitation. The estimated pulmonary arterial pressure is 58 mmHg. PULMONARY VALVE Mild pulmonary valve regurgitation. VESSELS The inferior vena cava is normal in size. PERICARDIUM No pericardial effusion. Nicholas Watkins MD, FACC (Electronically Signed) Final Date:18 March 2017 14:09
--- NOTE | 2017-03-18 14:20 | MB ---
cc: TOMAS CHAU M.D. DATE OF CONSULTATION: 03/18/2017. HISTORY OF PRESENT ILLNESS: Gaston is a very pleasant 56-year-old gentleman with history of coronary artery disease, hypertension, diabetes, cardiomyopathy status post AICD placement, stage III chronic renal insufficiency, ejection fraction 25% who presents with chief complaint of worsening shortness of breath, dyspnea on exertion. He otherwise denies any fevers, chills, cough, GI or bleeding, paroxysmal nocturnal dyspnea, orthopnea, syncope or dizziness. PAST MEDICAL HISTORY: His past medical history is per the history of present illness. 1. He has a history of CVA. 2. Hypertension. SOCIAL HISTORY: He drinks alcohol sometimes. He denies tobacco use. He smokes marijuana once a week. ALLERGIES: NONE. MEDICATIONS PRIOR TO ADMISSION: 1. Vasotec 20 milligrams twice a day. 2. Januvia 100 milligrams daily. 3. Cardizem 180 daily. 4. Alendronate 70 q. 7 days. 5. Bumex 1 milligram twice a day. 6. Carvedilol 6.25 twice a day. 7. Ferrous sulfate 325 milligrams daily. 8. Amiodarone 200 daily. 9. Tamsulosin 0.4 milligrams daily. 10. Megestrol. 11. Lyrica. 12. 13. Metformin. 14. Xarelto 20 daily. 15. Magnesium oxide 400 daily. 16. Aspirin 81 milligrams daily. 17. Vitamin D3. MEDICATIONS IN THE HOSPITAL: 1. Lasix 40 milligrams IV three times a day. 2. Zetia 10 milligrams at bedtime. 3. Magnesium oxide 400 daily. 4. Xarelto 15 milligrams daily. 5. Januvia 50 milligrams daily. 6. Sliding scale insulin. 7. Amiodarone 200 milligrams daily. 8. Aspirin 81 milligrams daily. 9. Coreg 6.25 milligrams twice a day. 10. Vitamin D3 5000 units daily. 11. Ferrous sulfate 325 daily. 12. Lyrica 50 milligrams twice a day. 13. Flomax 0.4 daily. PHYSICAL EXAMINATION: VITAL SIGNS: Blood pressure currently 95/54, pulse 76, systolic blood pressure is as high as 155, although this appears to be an outlier. All the other recorded blood pressures are between 95 and 120 systolic. Respiratory rate ranging between 22 and 28. Pulse 76. Temperature 97.5. GENERAL: He is alert and oriented times three and in no acute distress. NECK: The neck is supple. No jugular venous distention. No bruits. CARDIOVASCULAR EXAM: S1-S2. No murmurs, rubs or gallops. LUNGS: Clear to auscultation bilaterally. ABDOMEN: The abdomen is soft, nontender and nondistended with positive bowel sounds. EXTREMITIES: No lower extremity edema. LABORATORY DATA: His white count is 11.2, hemoglobin 8.7, hematocrit 27.3, platelet count 248,000. Sodium 136, potassium 4.2, chloride 102, bicarb 21.7, BUN 83, creatinine initially 2.54, now 3.10 today. BNP is 3302. Troponin is 0.05. INR is 125. IMAGING STUDIES: Chest x-ray shows cardiomegaly with pulmonary vascular engorgement. No infiltrate or effusions. EKGS: EKG shows A sensed V paced rhythm, right bundle-branch block, left anterior fascicular block, corrected Q-T intervals, 445 milliseconds. DIAGNOSES: He has the following diagnoses: 1. Decompensated congestive heart failure. 2. Acute renal failure. 3. Stage III chronic renal insufficiency. 4. Cardiorenal syndrome. 5. Status post ICD. 6. Coronary artery disease. 7. Diabetes mellitus. 8. Anemia. 9. History of CVA. 10. Elevated white count. 11. Marijuana abuse. DISCUSSION: The patient actually appears to be euvolemic on exam; however, his BNP is elevated. This may be nonspecifically elevated due to acute on chronic renal insufficiency. However, symptomatically, the patient has severe dyspnea with documented tachypnea at rest and it appears that despite optimal medical management, he continues to have decompensated congestive heart failure. Dr. Salazar has been consulted. Dr. Salazar agrees with continuing the Lasix 40 three times a day, which is reasonable in an attempt to improve the patient's symptoms. Dr. Eaton will be back on Monday, the and he can consider the possibility of upgrade to biventricular pacemaker and/or inotropic therapy. The patient appears to have a very poor prognosis based on a very poor response to optimal medical therapy and cardiorenal syndrome. Will continue supportive care and would consider palliative care consultation as well. MD NARINDER Talavera/PENNIE /10:10 AM /2:04 PM
[2017-03-18] MEDS ORDERED: SODIUM CHLORIDE 0.9% FLUSH 10 ML FLUSH IV FLUSH PRN (15:00)
--- NOTE | 2017-03-18 15:26 | RADRPT ---
EXAM DATE/TIME: 03/18/2017 14:58 [facility] COMPARISON: CHEST SINGLE AP, January 31, 2015, 2:33. INDICATIONS : PICC line placement. MEDICAL HISTORY : Hypercholesterolemia. Hypertension. AFIB. SURGICAL HISTORY : Pacemaker. ENCOUNTER: Initial ACUITY: 1 day PAIN SCORE: 0/10 LOCATION: Bilateral chest FINDINGS: A single view of the chest demonstrates symmetric aeration of the lungs with haziness of the intersti tial markings characteristic of vascular congestion/volume overload. Heart size is prominent. Left oneal bclavian bipolar pacer/defibrillator is radiographically intact. Right upper extremity PICC line with the tip projecting over the central venous system. Osseous structures are intact. CONCLUSION: 1. Cardiomegaly with prominence and indistinctness of the interstitial markings characteristic of pedro e degree of vascular congestion/CHF. 2. No confluent infiltrate or effusion. Reynold Case MD on March 18, 2017 at 15:23 Board Certified Radiologist. This report was verified electronically.
[2017-03-18] MEDS: EZETIMIBE 10 MG TAB PO SCH (21:01)
[2017-03-19] VITALS (26 sets, daily range): BP systolic 115–145; BP diastolic 48–55; PULSE 70–94; RESP 18–32; TEMP 81–97.2; O2SAT 96–100
[2017-03-19 07:50] LABS: AUTOMATED NEUTROPHIL # 5.9 TH/MM3 (1.8-7.7); BASOPHIL # 0.2 TH/MM3 (0-0.2); BASOPHIL % 1.7 % (0.0-2.0); EOSINOPHIL # 0.3 TH/MM3 (0-0.4); EOSINOPHIL % 2.8 % (0.0-4.0); HEMATOCRIT 25.8 % (39.0-51.0); HEMO FLAGS DIFF FINAL; LYMPH % 24.3 % (9.0-44.0); LYMPHOCYTE # 2.3 TH/MM3 (1.0-4.8); MEAN CELL VOLUME 71.3 FL (80.0-100.0); MEAN CORPUSCULAR HEMOGLOBIN 23.7 PG (27.0-34.0); MEAN CORPUSCULAR HGB CONC 33.2 % (32.0-36.0); MONO % 9.1 % (0.0-8.0); NEUT % 62.1 % (16.0-70.0); PLATELET COUNT 253 TH/MM3 (150-450); RED BLOOD COUNT 3.62 MIL/MM3 (4.50-5.90); RED CELL DISTRIBUTION WIDTH 22.1 % (11.6-17.2); WHITE BLOOD COUNT 9.4 TH/MM3 (4.0-11.0)
[2017-03-19] MEDS: INSULIN ASPART SUPPLEMENTAL SCALE SQ SCH ×4 (08:00→21:00)
[2017-03-19 08:14] LABS: BICARBONATE 21.2 MEQ/L (21.0-32.0); MAGNESIUM 2.5 MG/DL (1.5-2.5); POTASSIUM 3.7 MEQ/L (3.5-5.1)
[2017-03-19] MEDS: SODIUM CHLORIDE 0.9% FLUSH 10 ML FLUSH IV FLUSH SCH ×3 (09:00→20:22)
[2017-03-19] MEDS: PREGABALIN 25 MG CAP PO SCH ×2 (09:48→20:21)
[2017-03-19] MEDS: CHOLECALCIFEROL (VIT D3) 5000 UNIT CAP PO SCH (09:48)
[2017-03-19] MEDS: TAMSULOSIN HCL 0.4 MG CAP PO SCH (09:49)
[2017-03-19] MEDS: DOCUSATE SODIUM 50 MG/SENNA 8.6 MG TAB PO SCH ×2 (09:49→20:21)
[2017-03-19] MEDS: FERROUS SULFATE 325 MG (65 MG ELEMENTAL IRON) TAB PO SCH (09:49)
[2017-03-19] MEDS: CARVEDILOL 6.25 MG TAB PO SCH ×2 (09:49→20:22)
[2017-03-19] MEDS: RIVAROXABAN 15 MG TAB PO SCH (09:49)
[2017-03-19] MEDS: AMIODARONE 200 MG TAB PO SCH (09:49)
[2017-03-19] MEDS: ASPIRIN EC 81 MG TABEC PO SCH (09:49)
[2017-03-19] MEDS: MAGNESIUM OXIDE 400 MG TAB PO SCH (10:03)
[2017-03-19] MEDS: FUROSEMIDE 40 MG/4 ML VIAL IV PUSH SCH ×3 (10:05→20:32)
--- NOTE | 2017-03-19 10:32 | PD.CARD.PN ---
Subjective Subjective Remarks alert in nad, states dyspnea improved Objective Medications Current Medications Medications (Trade) Dose Ordered Sig/George Route Start Time Stop Time Status Last Admin (D50w (Vial) Inj) 50 ml UNSCH PRN IV PUSH 03/16/17 21:00 (Glucagon Inj) 1 mg UNSCH PRN OTHER 03/16/17 21:00 (NS Flush) 2 ml UNSCH PRN IV FLUSH 03/16/17 21:00 (NS Flush) 2 ml BID IV FLUSH 03/16/17 21:00 03/19/17 09:00 (Zofran Inj) 4 mg Q6H PRN IVP 03/16/17 21:00 (Tylenol) 650 mg Q6H PRN PO 03/16/17 21:00 ([place] 5-325 Mg) 1 tab Q4H PRN PO 03/16/17 21:00 (Morphine Inj) 2 mg Q3H PRN IV PUSH 03/16/17 21:00 (Daja-Colace) 1 tab BID PO 03/16/17 21:00 03/19/17 09:49 (Senokot) 17.2 mg Q12H PRN PO 03/16/17 21:00 (Dulcolax Supp) 10 mg DAILY PRN RECTAL 03/16/17 21:00 (Lactulose Liq) 30 ml DAILY PRN PO 03/16/17 21:00 (NovoLOG SUPPLEMENTAL SCALE) 1 ACHS SLIDING SCALE SQ 03/17/17 09:00 (Cordarone) 200 mg DAILY PO 03/17/17 09:00 03/19/17 09:49 (Ecotrin Ec) 81 mg DAILY PO 03/17/17 09:00 03/19/17 09:49 (Coreg) 6.25 mg BID PO 03/17/17 09:00 03/19/17 09:49 (Vitamin D3) 5,000 units DAILY PO 03/17/17 09:00 03/19/17 09:48 (Zetia) 10 mg HS PO 03/17/17 21:00 03/18/17 21:01 (Ferrous Sulfate) 325 mg DAILY PO 03/17/17 09:00 03/19/17 09:49 (Mag-Ox) 400 mg DAILY@1100 PO 03/17/17 11:00 03/19/17 10:03 (Lyrica) 50 mg BID PO 03/17/17 09:00 03/19/17 09:48 (Xarelto) 15 mg DAILY PO 03/17/17 09:15 03/19/17 09:49 (Januvia) 50 mg DAILY PO 03/17/17 09:15 03/18/17 09:31 (Flomax) 0.4 mg DAILY PO 03/17/17 09:00 03/19/17 09:49 (Lasix Inj) 40 mg TID@0800,1400,2000 IV PUSH 03/18/17 14:00 03/19/17 10:05 Dobutamine HCl/ Dextrose 250 ml @ 9.338 mls/ hr Q24H PRN IV 03/18/17 10:50 03/18/17 15:45 (NS Flush) See Protocol DAILY IV FLUSH 03/19/17 09:00 (NS Flush) See Protocol UNSCH PRN IV FLUSH 03/18/17 15:00 (Heparin Central Flush) See Protocol DAILY IV FLUSH 03/19/17 09:00 (Heparin Central Flush) See Protocol UNSCH PRN IV FLUSH 03/18/17 15:00 (NS Flush) UNSCH PRN IV FLUSH 03/18/17 15:00 Vital Signs / I&O Vital Signs Date Time Temp Pulse Resp B/P (MAP) Pulse Ox O2 Delivery O2 Flow Rate FiO2 03/19/17 06:00 78 03/19/17 05:00 76 03/19/17 04:00 76 03/19/17 03:00 97.2 77 32 138/54 (82) 100 03/19/17 03:00 73 03/19/17 02:00 74 03/19/17 01:00 72 03/19/17 00:00 70 03/18/17 23:00 96.5 79 22 146/51 (82) 100 03/18/17 23:00 74 03/18/17 22:00 82 03/18/17 21:00 82 03/18/17 20:00 82 03/18/17 19:00 100 Nasal Cannula 2.00 03/18/17 19:00 85 03/18/17 19:00 97.0 84 22 118/50 (72) 100 03/18/17 18:00 84 03/18/17 17:00 66 03/18/17 16:00 83 03/18/17 15:45 82 132/82 03/18/17 15:00 81 03/18/17 15:00 99 Nasal Cannula 2.00 03/18/17 15:00 97.4 82 26 132/82 (99) 99 03/18/17 14:10 97.6 86 25 129/57 (81) 96 03/18/17 14:00 83 03/18/17 12:07 97.5 83 24 96/53 (67) 100 I/O 03/18/17 03/18/17 03/18/17 03/19/17 03/19/17 03/19/17 07:00 15:00 23:00 07:00 15:00 23:00 Intake Total 240 ml 720 ml Output Total 300 ml 650 ml Balance -300 ml 240 ml 70 ml Intake Oral 240 ml 720 ml Output Urine Total 300 ml 650 ml # Voids 1 # Bowel Movements 1 1 Physical Exam GENERAL: SKIN: Warm and dry. HEAD: Normocephalic. EYES: No scleral icterus. No injection or drainage. NECK: Supple, trachea midline. No JVD or lymphadenopathy. CARDIOVASCULAR: Regular rate and rhythm without murmurs, gallops, or rubs. RESPIRATORY: Breath sounds equal bilaterally. No accessory muscle use. GASTROINTESTINAL: Abdomen soft, non-tender, nondistended. MUSCULOSKELETAL: No cyanosis, or edema. BACK: Nontender without obvious deformity. No CVA tenderness. Laboratory Laboratory Tests Test 03/19/17 06:50 White Blood Count 9.4 TH/MM3 Red Blood Count 3.62 MIL/MM3 Hemoglobin 8.6 GM/DL Hematocrit 25.8 % Mean Corpuscular Volume 71.3 FL Mean Corpuscular Hemoglobin 23.7 PG Mean Corpuscular Hemoglobin Concent 33.2 % Red Cell Distribution Width 22.1 % Platelet Count 253 TH/MM3 Mean Platelet Volume 8.7 FL Neutrophils (%) (Auto) 62.1 % Lymphocytes (%) (Auto) 24.3 % Monocytes (%) (Auto) 9.1 % Eosinophils (%) (Auto) 2.8 % Basophils (%) (Auto) 1.7 % Neutrophils # (Auto) 5.9 TH/MM3 Lymphocytes # (Auto) 2.3 TH/MM3 Monocytes # (Auto) 0.9 TH/MM3 Eosinophils # (Auto) 0.3 TH/MM3 Basophils # (Auto) 0.2 TH/MM3 CBC Comment DIFF FINAL Differential Comment Blood Urea Nitrogen 89 MG/DL Creatinine 3.04 MG/DL Random Glucose 109 MG/DL Calcium Level 8.2 MG/DL Magnesium Level 2.5 MG/DL Sodium Level 136 MEQ/L Potassium Level 3.7 MEQ/L Chloride Level 102 MEQ/L Carbon Dioxide Level 21.2 MEQ/L Anion Gap 13 MEQ/L Estimat Glomerular Filtration Rate 26 ML/MIN Assessment and Plan Problem List: (1) Mitral regurgitation ICD Codes: I34.0 - Mitral regurgitation Status: Chronic (2) History of CVA (cerebrovascular accident) ICD Codes: Z86.73 - History of CVA (cerebrovascular accident) Status: Chronic (3) Nonischemic dilated cardiomyopathy ICD Codes: I42.9 - Nonischemic dilated cardiomyopathy Status: Chronic (4) CKD (chronic kidney disease) stage 3, GFR 30-59 ml/min ICD Codes: N18.3 - CKD (chronic kidney disease) stage 3, GFR 30-59 ml/min Status: Acute (5) CHF (congestive heart failure) ICD Codes: I50.9 - Heart failure, unspecified (6) Renal insufficiency ICD Codes: N28.9 - Disorder of kidney and ureter, unspecified (7) A-fib ICD Codes: I48.91 - Unspecified atrial fibrillation (8) Type 2 diabetes mellitus ICD Codes: E11.9 - Type 2 diabetes mellitus without complications (9) Chronic systolic congestive heart failure ICD Codes: I50.22 - Chronic systolic (congestive) heart failure (10) Acute kidney injury superimposed on chronic kidney disease ICD Codes: N17.9 - Acute kidney failure, unspecified; N18.9 - Chronic kidney disease, unspecified (11) S/P implantation of automatic cardioverter/defibrillator (AICD) ICD Codes: Z95.810 - S/P implantation of automatic cardioverter/defibrillator ( AICD) Status: Chronic Assessment and Plan 1.) NICM with cardiorenal syndrome - symptomatically improved on tid lasix and dobutamine, scr elevated since in admit but stable over past 24 hrs; continue aspirn, xarelto, coreg; Dr Eaton to resume care and follow up 03/20/17 7am. Fabian Hoffman MD Mar 19, 2017 10:32
[2017-03-19] MEDS ORDERED: hydrOXYzine PAMOATE 25 MG CAP PO PRN (12:15)
--- NOTE | 2017-03-19 12:46 | HHI.PR ---
Subjective Remarks Follow-up heart failure. Improving shortness of breath per patient but visibly dyspneic just talking. I/O not accurate but patient states he is voiding. Discussed with RN Objective Vitals Vital Signs Date Time Temp Pulse Resp B/P (MAP) Pulse Ox O2 Delivery O2 Flow Rate FiO2 03/19/17 08:00 95.4 88 18 145/53 (83) 100 03/19/17 08:00 80 03/19/17 06:00 78 03/19/17 05:00 76 03/19/17 04:00 76 03/19/17 03:00 97.2 77 32 138/54 (82) 100 03/19/17 03:00 73 03/19/17 02:00 74 03/19/17 01:00 72 03/19/17 00:00 70 03/18/17 23:00 96.5 79 22 146/51 (82) 100 03/18/17 23:00 74 03/18/17 22:00 82 03/18/17 21:00 82 03/18/17 20:00 82 03/18/17 19:00 100 Nasal Cannula 2.00 03/18/17 19:00 85 03/18/17 19:00 97.0 84 22 118/50 (72) 100 03/18/17 18:00 84 03/18/17 17:00 66 03/18/17 16:00 83 03/18/17 15:45 82 132/82 03/18/17 15:00 81 03/18/17 15:00 99 Nasal Cannula 2.00 03/18/17 15:00 97.4 82 26 132/82 (99) 99 03/18/17 14:10 97.6 86 25 129/57 (81) 96 03/18/17 14:00 83 I/O 03/18/17 03/18/17 03/18/17 03/19/17 03/19/17 03/19/17 07:00 15:00 23:00 07:00 15:00 23:00 Intake Total 240 ml 720 ml Output Total 300 ml 650 ml 350 ml Balance -300 ml 240 ml 70 ml -350 ml Intake Oral 240 ml 720 ml Output Urine Total 300 ml 650 ml 350 ml # Voids 1 # Bowel Movements 1 1 Result Diagram: 03/19/17 0650 03/19/17 0650 Imaging Last Impressions Chest X-Ray 03/18/17 0000 Signed Impressions: Service Date/Time: Saturday, March 18, 2017 14:58 - CONCLUSION: 1. Cardiomegaly with prominence and indistinctness of the interstitial markings characteristic of some degree of vascular congestion/CHF. 2. No confluent infiltrate or effusion. Reynold Case MD Objective Remarks GENERAL: Pleasant middle-aged black male in no respiratory distress. HEENT: PERRLA, EOMI. No scleral icterus or conjunctival pallor. No lid lag or facial droop. Positive JVD CARDIOVASCULAR: Irregularly irregular with systolic murmur. Left AICD RESPIRATORY: No obvious rhonchi or wheezing. Decreased Breath sounds equal bilaterally. GASTROINTESTINAL: Abdomen soft, non-tender, nondistended. BS normal. MUSCULOSKELETAL: Extremities without clubbing, cyanosis, or edema. No obvious deformities. NEUROLOGICAL: Awake, alert and oriented x4. No focal neurologic deficits. Moving both upper and lower extremities spontaneously. Procedures none A/P Problem List: (1) CHF (congestive heart failure) ICD Code: I50.9 - Heart failure, unspecified (2) A-fib ICD Code: I48.91 - Unspecified atrial fibrillation (3) Renal insufficiency ICD Code: N28.9 - Disorder of kidney and ureter, unspecified (4) DM (diabetes mellitus) ICD Code: E11.9 - DM (diabetes mellitus) Status: Chronic Assessment and Plan 1. CHF: Acute on Chronic. Systolic with cardiorenal syndrome. He is stable diuresing and losing weight on dobutamine drip and Lasix or the mg IV every 8 hours. Consider Bumex drip. Strict I/O and monitor weight. Follow-up 2-D echo with EF of 20%. Follow-up with Dr. Eaton, he might need AICD upgrade. Consider palliative care 2. A-fib: Chronic. On Xarelto, amiodarone and Coreg, will resume. 3. Renal Insufficiency: Acute on Chronic stage III. Creatinine stable. Hold Enalapril. Repeat labs in am. Caution w/ diuretics. 4. DM: Sliding scale w/ Accu-Cheks. Hold Metformin in light of renal insufficiency. Stable 5. DVT Prophylaxis: Resume Xarelto, we will consider switching to Eliquis Poor prognosis Frederick Hammond MD Mar 19, 2017 12:46
[2017-03-19] MEDS: RESP: ALBUTEROL 0.63 MG/3 ML NEB (PRN) NEB ×3 (13:20→20:27)
--- NOTE | 2017-03-19 15:58 | HHI.NPPN ---
Subjective History of Present Illness Patient with Cardiomyopathy, ARF, AICD Additional Remarks SOB on exertion Objective Data Data 03/19/17 03/20/17 19:00 07:00 Output Total 350 ml Balance -350 ml Output Urine Total 350 ml Vital Signs Date Time Temp Pulse Resp B/P (MAP) Pulse Ox O2 Delivery O2 Flow Rate FiO2 03/19/17 13:21 100 Nasal Cannula 2.00 03/19/17 12:00 88 03/19/17 08:00 95.4 88 18 145/53 (83) 100 03/19/17 08:00 80 03/19/17 06:00 78 03/19/17 05:00 76 03/19/17 04:00 76 03/19/17 03:00 97.2 77 32 138/54 (82) 100 03/19/17 03:00 73 03/19/17 02:00 74 03/19/17 01:00 72 03/19/17 00:00 70 03/18/17 23:00 96.5 79 22 146/51 (82) 100 03/18/17 23:00 74 03/18/17 22:00 82 03/18/17 21:00 82 03/18/17 20:00 82 03/18/17 19:00 100 Nasal Cannula 2.00 03/18/17 19:00 85 03/18/17 19:00 97.0 84 22 118/50 (72) 100 03/18/17 18:00 84 03/18/17 17:00 66 03/18/17 16:00 83 -: 03/19/17 0650 03/19/17 0650 Microbiology 03/18/17 Stool Occult Blood (SALMA) - Final, Complete HEMOCCULT NEGATIVE Medication Review Current Medications Medications (Trade) Dose Ordered Sig/George Route Start Time Stop Time Status Last Admin (D50w (Vial) Inj) 50 ml UNSCH PRN IV PUSH 03/16/17 21:00 (Glucagon Inj) 1 mg UNSCH PRN OTHER 03/16/17 21:00 (NS Flush) 2 ml UNSCH PRN IV FLUSH 03/16/17 21:00 (NS Flush) 2 ml BID IV FLUSH 03/16/17 21:00 03/19/17 09:00 (Zofran Inj) 4 mg Q6H PRN IVP 03/16/17 21:00 (Tylenol) 650 mg Q6H PRN PO 03/16/17 21:00 ([place] 5-325 Mg) 1 tab Q4H PRN PO 03/16/17 21:00 (Morphine Inj) 2 mg Q3H PRN IV PUSH 03/16/17 21:00 (Daja-Colace) 1 tab BID PO 03/16/17 21:00 03/19/17 09:49 (Senokot) 17.2 mg Q12H PRN PO 03/16/17 21:00 (Dulcolax Supp) 10 mg DAILY PRN RECTAL 03/16/17 21:00 (Lactulose Liq) 30 ml DAILY PRN PO 03/16/17 21:00 (NovoLOG SUPPLEMENTAL SCALE) 1 ACHS SLIDING SCALE SQ 03/17/17 09:00 03/19/17 13:20 (Cordarone) 200 mg DAILY PO 03/17/17 09:00 03/19/17 09:49 (Ecotrin Ec) 81 mg DAILY PO 03/17/17 09:00 03/19/17 09:49 (Coreg) 6.25 mg BID PO 03/17/17 09:00 03/19/17 09:49 (Vitamin D3) 5,000 units DAILY PO 03/17/17 09:00 03/19/17 09:48 (Zetia) 10 mg HS PO 03/17/17 21:00 03/18/17 21:01 (Ferrous Sulfate) 325 mg DAILY PO 03/17/17 09:00 03/19/17 09:49 (Mag-Ox) 400 mg DAILY@1100 PO 03/17/17 11:00 03/19/17 10:03 (Lyrica) 50 mg BID PO 03/17/17 09:00 03/19/17 09:48 (Xarelto) 15 mg DAILY PO 03/17/17 09:15 03/19/17 09:49 (Januvia) 50 mg DAILY PO 03/17/17 09:15 03/19/17 12:33 (Flomax) 0.4 mg DAILY PO 03/17/17 09:00 03/19/17 09:49 (Lasix Inj) 40 mg TID@0800,1400,2000 IV PUSH 03/18/17 14:00 03/19/17 13:20 Dobutamine HCl/ Dextrose 250 ml @ 9.338 mls/ hr Q24H PRN IV 03/18/17 10:50 03/18/17 15:45 (NS Flush) See Protocol DAILY IV FLUSH 03/19/17 09:00 (NS Flush) See Protocol UNSCH PRN IV FLUSH 03/18/17 15:00 (Heparin Central Flush) See Protocol DAILY IV FLUSH 03/19/17 09:00 (Heparin Central Flush) See Protocol UNSCH PRN IV FLUSH 03/18/17 15:00 (NS Flush) UNSCH PRN IV FLUSH 03/18/17 15:00 (Albuterol Neb) 0.63 mg Q4HR NEB PRN NEB 03/19/17 12:15 03/19/17 13:20 (Vistaril) 25 mg Q6H PRN PO 03/19/17 12:15 Physical Exam General Appearance: Well Developed Eyes Eye Exam: Pupils Equal Pulmonary Resp Exam: Decreased Bases, Diminished Breath Sounds Cardiology CV Exam: Irregular Gastrointestinal/Abdomen GI Exam: Soft, Bowel Sounds Present Extremeties Extremities Exam: Trace Edema Neurologic Neuro Exam: Alert Assessment/Plan Problem List: (1) Acute kidney injury superimposed on chronic kidney disease ICD Codes: N17.9 - Acute kidney failure, unspecified; N18.9 - Chronic kidney disease, unspecified Plan: He has underlying stage III to IV CKD, may have nephrosclerosis. FELECIA could be due to decompensated CHF, increased renal venous pressure. He has cardiorenal syndrome. On Dobutamine infusion Losing weight Increased urine output Lasix 40 mg every 8 Creatinine slightly better Follow BMP Anemia low iron give iron infusion Follow with Dr. Salazar we will decide about dobutamine drip as it was initiated by nephrology service (2) Chronic systolic congestive heart failure ICD Codes: I50.22 - Chronic systolic (congestive) heart failure Plan: See above. Continue diuretics. (3) Atrial fibrillation ICD Codes: I48.91 - Unspecified atrial fibrillation Plan: The dose of Xarelto will have to be reduced to 15 mg PO daily. Rate controlled. (4) Type 2 diabetes mellitus ICD Codes: E11.9 - Type 2 diabetes mellitus without complications Plan: Avoid Metformin. Insulin coverage, maintain blood glucose between 140 and 180 while hospitalized. Lanny Lo MD Mar 19, 2017 15:58
[2017-03-19] MEDS ORDERED: IRON SUCROSE INJ 100 MG in SODIUM CHLORIDE 0.9% INJ 100 ML IV ONE (18:00)
[2017-03-19] MEDS: EZETIMIBE 10 MG TAB PO SCH (20:22)
[2017-03-20] VITALS (28 sets, daily range): BP systolic 109–140; BP diastolic 46–65; PULSE 68–93; RESP 20–32; TEMP 96.9–97.6; O2SAT 95–100
[2017-03-20 07:01] LABS: BICARBONATE 20.2 MEQ/L (21.0-32.0); MAGNESIUM 2.7 MG/DL (1.5-2.5); POTASSIUM 4.2 MEQ/L (3.5-5.1)
[2017-03-20] MEDS: INSULIN ASPART SUPPLEMENTAL SCALE SQ SCH ×4 (08:00→20:52)
[2017-03-20] MEDS: CHOLECALCIFEROL (VIT D3) 5000 UNIT CAP PO SCH (08:29)
[2017-03-20] MEDS: DOCUSATE SODIUM 50 MG/SENNA 8.6 MG TAB PO SCH (08:29)
[2017-03-20] MEDS: AMIODARONE 200 MG TAB PO SCH (08:29)
[2017-03-20] MEDS: TAMSULOSIN HCL 0.4 MG CAP PO SCH (08:29)
[2017-03-20] MEDS: RIVAROXABAN 15 MG TAB PO SCH (08:30)
[2017-03-20] MEDS: SODIUM CHLORIDE 0.9% FLUSH 10 ML FLUSH IV FLUSH SCH ×3 (08:30→20:52)
[2017-03-20] MEDS: PREGABALIN 25 MG CAP PO SCH ×2 (08:30→20:35)
[2017-03-20] MEDS: CARVEDILOL 6.25 MG TAB PO SCH ×2 (08:30→20:35)
[2017-03-20] MEDS: FERROUS SULFATE 325 MG (65 MG ELEMENTAL IRON) TAB PO SCH (08:30)
[2017-03-20] MEDS: ASPIRIN EC 81 MG TABEC PO SCH (08:30)
[2017-03-20] MEDS: FUROSEMIDE 40 MG/4 ML VIAL IV PUSH SCH ×3 (10:15→20:35)
[2017-03-20] MEDS: MAGNESIUM OXIDE 400 MG TAB PO SCH (11:00)
--- NOTE | 2017-03-20 11:20 | HHI.NPPN ---
Subjective General Problems: Heart Disease Renal Failure: Chronic Interval History His renal function is worsening. He is not short of breath. Adequate urine output. (Alfreda Hernandez) Objective Data Data Vital Signs Date Time Temp Pulse Resp B/P (MAP) Pulse Ox O2 Delivery O2 Flow Rate FiO2 03/20/17 08:15 100 Nasal Cannula 3.00 03/20/17 08:15 97.4 78 32 139/55 (83) 100 03/20/17 07:01 76 03/20/17 06:00 74 03/20/17 05:00 80 03/20/17 04:00 76 03/20/17 03:00 76 03/20/17 03:00 96.9 93 122/57 (78) 98 03/20/17 02:00 74 03/20/17 01:00 74 03/20/17 00:00 76 03/19/17 23:00 77 03/19/17 23:00 96.1 78 28 116/48 (70) 100 03/19/17 22:00 78 03/19/17 21:00 78 03/19/17 20:29 96 Nasal Cannula 3.00 03/19/17 20:00 76 03/19/17 19:00 84 03/19/17 19:00 100 Nasal Cannula 2.00 03/19/17 19:00 96.9 79 32 115/55 (75) 100 03/19/17 18:00 78 03/19/17 17:00 80 03/19/17 16:51 95.9 81 20 126/55 (78) 100 03/19/17 16:00 78 03/19/17 15:00 78 03/19/17 14:00 82 03/19/17 13:21 100 Nasal Cannula 2.00 03/19/17 13:00 94 03/19/17 12:00 88 (Alfreda Hernandez) -: 03/19/17 0650 03/20/17 0612 Imaging Last 72 hours Impressions Chest X-Ray 03/18/17 0000 Signed Impressions: Service Date/Time: Saturday, March 18, 2017 14:58 - CONCLUSION: 1. Cardiomegaly with prominence and indistinctness of the interstitial markings characteristic of some degree of vascular congestion/CHF. 2. No confluent infiltrate or effusion. Reynold Case MD Drip Comment Dobutamine (Mary,Alfreda B. [employer] TESTER) Physical Exam General Appearance: Well Developed, Comfortable, Malnourished (Mary,Alfreda B. [employer] V[employer] TESTER) Eyes Eye Exam: Pupils Equal (Mary,Alfreda B. C[employer] V[employer] TESTER) Neck Neck Exam: Neck Supple (Mary,Alfreda B. [employer] V[employer] TESTER) Pulmonary Resp Exam: Breath Sounds Equal, No Distress, Decreased Bases, Diminished Breath Sounds (Mary,Alfreda B. C[employer] TESTER) Cardiology CV Exam: Good Perfusion, Irregular (Mary,Alfreda B. C[employer] V[employer] TESTER) Gastrointestinal/Abdomen GI Exam: Soft, Bowel Sounds Present (Mary,Alfreda B. C[employer] V[employer] TESTER) Musculoskeletal MS Exam: Joints Intact, Good Strength (Mary,Alfreda B. C[employer] VACU[employer] TESTER) Integumentary Skin Exam: Warm, Dry, Intact (Mary,Alfreda B. C[employer] V[employer] TESTER) Extremeties Extremities Exam: No Edema, Pedal Pulses Palpable (Mary,Alfreda B. C[employer] V[employer] TESTER) Neurologic Neuro Exam: Alert, Awake, Oriented, Moving All Extremities (Mary,Alfreda B. C[employer] V[employer] TESTER) Psychiatric Psych Exam: Appropriate Responses (Mary,Alfreda B. C[employer] V[employer] TESTER) Assessment/Plan Discussed Condition With: Patient, Spouse Assessment Summary: CHF, CKD Stage III, CKD Stage IV Problem List: (1) Acute kidney injury superimposed on chronic kidney disease ICD Codes: N17.9 - Acute kidney failure, unspecified; N18.9 - Chronic kidney disease, unspecified Plan: He has underlying stage III to IV CKD, may have nephrosclerosis. FELECIA could be due to decompensated CHF, increased renal venous pressure. Likely has cardiorenal syndrome. On Dobutamine infusion Renal function is worse Limited options exist, continue diuretics Consider LVAD? possible transfer to tertiary center for heart transplant? Follow BMP Avoid IVF, nephrotoxins. (2) Chronic systolic congestive heart failure ICD Codes: I50.22 - Chronic systolic (congestive) heart failure Plan: See above. Continue diuretics. Cardiology following Consider palliative consult. He is on dobutamine gtt (3) Atrial fibrillation ICD Codes: I48.91 - Unspecified atrial fibrillation Plan: Rate controlled On Xarelto (4) Type 2 diabetes mellitus ICD Codes: E11.9 - Type 2 diabetes mellitus without complications Plan: Avoid Metformin. Insulin coverage, maintain blood glucose between 140 and 180 while hospitalized. (Alfreda Hernandez) Plan patient was seen and examined. Renal function is worse. Very poor prognosis. Consider palliative care/hospice if he is not a candidate for heart transplant/ LVAD. (Doc Salazar MD) Alfreda Hernandez Mar 20, 2017 11:20 Doc Salazar MD Mar 21, 2017 11:19
--- NOTE | 2017-03-20 12:51 | HHI.PR ---
Subjective Remarks Follow-up acute on chronic systolic CHF/acute on chronic superimposed CK D stage IV 03/20/17-patient seen and examined, quite short of breath however denies any chest pain. Worsening renal indices. Good urine output. by the bedside Objective Vitals Vital Signs Date Time Temp Pulse Resp B/P (MAP) Pulse Ox O2 Delivery O2 Flow Rate FiO2 03/20/17 11:15 97.4 69 28 109/65 (80) 100 03/20/17 08:15 100 Nasal Cannula 3.00 03/20/17 08:15 97.4 78 32 139/55 (83) 100 03/20/17 07:01 76 03/20/17 06:00 74 03/20/17 05:00 80 03/20/17 04:00 76 03/20/17 03:00 76 03/20/17 03:00 96.9 93 122/57 (78) 98 03/20/17 02:00 74 03/20/17 01:00 74 03/20/17 00:00 76 03/19/17 23:00 77 03/19/17 23:00 96.1 78 28 116/48 (70) 100 03/19/17 22:00 78 03/19/17 21:00 78 03/19/17 20:29 96 Nasal Cannula 3.00 03/19/17 20:00 76 03/19/17 19:00 84 03/19/17 19:00 100 Nasal Cannula 2.00 03/19/17 19:00 96.9 79 32 115/55 (75) 100 03/19/17 18:00 78 03/19/17 17:00 80 03/19/17 16:51 95.9 81 20 126/55 (78) 100 03/19/17 16:00 78 03/19/17 15:00 78 03/19/17 14:00 82 03/19/17 13:21 100 Nasal Cannula 2.00 03/19/17 13:00 94 I/O 03/19/17 03/19/17 03/19/17 03/20/17 03/20/17 03/20/17 07:00 15:00 23:00 07:00 15:00 23:00 Intake Total 720 ml 720 ml Output Total 650 ml 350 ml 750 ml Balance 70 ml -350 ml -30 ml Intake Oral 720 ml 720 ml Output Urine Total 650 ml 350 ml 750 ml Bladder Scan Volume Amount 617 ml Result Diagram: 03/19/17 0650 03/20/17 0612 Imaging Last Impressions Chest X-Ray 03/18/17 0000 Signed Impressions: Service Date/Time: Monday, March 18, 2017 14:58 - CONCLUSION: 1. Cardiomegaly with prominence and indistinctness of the interstitial markings characteristic of some degree of vascular congestion/CHF. 2. No confluent infiltrate or effusion. Reynold Case MD Objective Remarks GENERAL: NAD SKIN: Warm and dry. HEAD: Normocephalic. EYES: No scleral icterus. No injection or drainage. NECK: Supple, trachea midline. No JVD or lymphadenopathy. CARDIOVASCULAR: Irregular Regular rate and rhythm with II/ [place] RESPIRATORY: Breath sounds decreased bilaterally. Tachypnea .No accessory muscle use. GASTROINTESTINAL: Abdomen soft, non-tender, nondistended. MUSCULOSKELETAL: No cyanosis, or edema. BACK: Nontender without obvious deformity. No CVA tenderness. Procedures none A/P Problem List: (1) Acute on chronic systolic CHF (congestive heart failure), NYHA class 4 ICD Code: I50.23 - Acute on chronic systolic (congestive) heart failure (2) Acute renal failure superimposed on stage 4 chronic kidney disease ICD Code: N17.9 - Acute kidney failure, unspecified; N18.4 - Chronic kidney disease, stage 4 (severe) (3) A-fib ICD Code: I48.91 - Unspecified atrial fibrillation (4) DM (diabetes mellitus) ICD Code: E11.9 - DM (diabetes mellitus) Status: Chronic Assessment and Plan 56-year-old man with Acute on chronic systolic CHF [place] IV Currently on Lasix, Bumex drip Recent 2-D echo with EF 20% May consider LVAD, however patient with a very poor prognostic Cardiology following Acute renal failure superimposed on stage IV chronic kidney disease Cardiorenal syndrome Worsening renal indices Currently on dobutamine infusion Nephrology following Paroxysmal Atrial fibrillation Rate control on Coreg 6.5 mg by mouth twice a day, Xarelto Hyperlipidemia On Zetia Diabetes type 2 Normoglycemic on insulin sliding scale and oral hypoglycemic agents Hold metformin DVT prophylaxis: Arnaldo Chong MD Mar 20, 2017 12:51
[2017-03-20] MEDS: RESP: ALBUTEROL 0.63 MG/3 ML NEB (PRN) NEB ×2 (14:22→14:23)
[2017-03-20] MEDS: EZETIMIBE 10 MG TAB PO SCH (20:35)
[2017-03-20] MEDS ORDERED: DOBUTamine INJ 250 MG in DEXTROSE 5% IN WATER INJ 230 ML IV PRN ×2 (22:30)
[2017-03-21] VITALS (25 sets, daily range): BP systolic 96–154; BP diastolic 44–63; PULSE 68–81; RESP 18–28; TEMP 97.1–98.5; O2SAT 93–100
[2017-03-21 07:27] LABS: BICARBONATE 19.5 MEQ/L (21.0-32.0); MAGNESIUM 2.8 MG/DL (1.5-2.5); POTASSIUM 4.2 MEQ/L (3.5-5.1)
[2017-03-21] MEDS: INSULIN ASPART SUPPLEMENTAL SCALE SQ SCH ×4 (08:00→22:37)
[2017-03-21] MEDS: ISOSORBIDE DINITRATE 10 MG TAB PO SCH ×2 (09:00→12:57)
[2017-03-21] MEDS: TAMSULOSIN HCL 0.4 MG CAP PO SCH (09:00)
[2017-03-21] MEDS: SODIUM CHLORIDE 0.9% FLUSH 10 ML FLUSH IV FLUSH SCH ×3 (09:00→22:37)
--- NOTE | 2017-03-21 10:15 | HHI.NPPN ---
Subjective General Problems: Anemia, Heart Disease Renal Failure: Chronic Interval History Lying in bed. Respirations are unlabored. Creatinine slightly worse. (Alfreda Hernandez) Objective Data Data Vital Signs Date Time Temp Pulse Resp B/P (MAP) Pulse Ox O2 Delivery O2 Flow Rate FiO2 03/21/17 07:00 97.1 70 28 154/50 (84) 100 03/21/17 06:04 70 03/21/17 05:20 68 03/21/17 04:00 70 03/21/17 03:00 97.2 72 22 128/48 (74) 97 03/21/17 03:00 71 03/21/17 03:00 97 Nasal Cannula 2.00 03/21/17 02:12 72 03/21/17 01:00 72 03/21/17 00:00 78 03/20/17 23:00 72 03/20/17 23:00 97.2 75 20 122/46 (71) 98 03/20/17 23:00 98 Nasal Cannula 2.00 03/20/17 22:00 74 03/20/17 22:00 20 03/20/17 21:00 74 03/20/17 20:00 74 03/20/17 19:00 95 Nasal Cannula 3.00 03/20/17 19:00 72 03/20/17 19:00 97.6 92 28 140/53 (82) 95 03/20/17 18:01 74 03/20/17 17:00 74 03/20/17 16:01 74 03/20/17 15:15 97.6 75 29 131/47 (75) 100 03/20/17 15:00 72 03/20/17 14:24 97 Nasal Cannula 03/20/17 14:00 74 03/20/17 13:01 70 03/20/17 12:00 68 03/20/17 11:15 97.4 69 28 109/65 (80) 100 03/20/17 11:00 71 (Alfreda Hernandez) -: 03/19/17 0650 03/21/17 0515 Drip Comment Dobutamine (Alfreda Hernandez) Physical Exam General Appearance: Well Developed, Comfortable, Malnourished (Alfreda Hernandez) Eyes Eye Exam: Pupils Equal (Alfreda Hernandez) Neck Neck Exam: Neck Supple (Alfreda HernandezP) Pulmonary Resp Exam: Breath Sounds Equal, No Distress, Decreased Bases, Diminished Breath Sounds (Alfreda Hernandez Z [employer]) Cardiology CV Exam: Good Perfusion, Irregular, Murmur CV Remarks AICD left chest (Alfreda Hernandez Z [employer]) Gastrointestinal/Abdomen GI Exam: Soft, Non-Tender, Bowel Sounds Present (Alfreda Hernandez) Musculoskeletal MS Exam: Joints Intact, Good Strength (Alfreda Hernandez) Integumentary Skin Exam: Clear, Warm, Dry, Intact (Alfreda Hernandez) Extremeties Extremities Exam: No Edema, Pedal Pulses Palpable (Alfreda Hernandez) Neurologic Neuro Exam: Alert, Awake, Oriented, Speech Clear, Moving All Extremities (Alfreda HernandezP) Psychiatric Psych Exam: Appropriate Responses (Alfreda Hernandez) VTE Prophylaxis Device: SCDs (Alfreda Hernandez) Assessment/Plan Discussed Condition With: Patient Assessment Summary: CHF, CKD Stage III, CKD Stage IV Problem List: (1) Acute kidney injury superimposed on chronic kidney disease ICD Codes: N17.9 - Acute kidney failure, unspecified; N18.9 - Chronic kidney disease, unspecified Plan: He has underlying stage III to IV CKD, may have nephrosclerosis. Obtain UA FELECIA could be due to decompensated CHF, increased renal venous pressure. Likely has cardiorenal syndrome. On Dobutamine infusion Renal function slightly worse Reduce Lasix to BID Limited options exist, continue diuresis Consider LVAD? possible transfer to tertiary center for heart transplant? Follow BMP Avoid IVF, nephrotoxins. (2) Chronic systolic congestive heart failure ICD Codes: I50.22 - Chronic systolic (congestive) heart failure Plan: See above. Continue diuretics. Cardiology following Consider palliative consult. He is on dobutamine gtt (3) Atrial fibrillation ICD Codes: I48.91 - Unspecified atrial fibrillation Plan: Rate controlled On Xarelto (4) Type 2 diabetes mellitus ICD Codes: E11.9 - Type 2 diabetes mellitus without complications Plan: Avoid Metformin. Insulin coverage, maintain blood glucose between 140 and 180 while hospitalized. (Alfreda Hernandez) Plan patient was seen and examined. Very poor prognosis. Not a candidate for renal replacement therapy. On Dobutamine. Cardiology following. Agree with above assessment and plan. (Doc Salazar MD) Alfreda Hernandez Mar 21, 2017 10:14 Doc Salazar MD Mar 22, 2017 10:19
[2017-03-21] MEDS: CHOLECALCIFEROL (VIT D3) 5000 UNIT CAP PO SCH (10:40)
[2017-03-21] MEDS: hydrALAZINE HCL 25 MG TAB PO SCH ×3 (10:41→18:28)
[2017-03-21] MEDS: RIVAROXABAN 15 MG TAB PO SCH (10:41)
[2017-03-21] MEDS: PREGABALIN 25 MG CAP PO SCH ×2 (10:41→22:37)
[2017-03-21] MEDS: FERROUS SULFATE 325 MG (65 MG ELEMENTAL IRON) TAB PO SCH (10:41)
[2017-03-21] MEDS: AMIODARONE 200 MG TAB PO SCH (10:41)
[2017-03-21] MEDS: ASPIRIN EC 81 MG TABEC PO SCH (10:41)
[2017-03-21] MEDS: FUROSEMIDE 40 MG/4 ML VIAL IV PUSH SCH ×2 (10:42→14:26)
--- NOTE | 2017-03-21 10:53 | HHI.PR ---
Subjective Remarks Follow-up acute on chronic systolic CHF/acute on chronic superimposed CK D stage IV 03/20/17-patient seen and examined, quite short of breath however denies any chest pain. Worsening renal indices. Good urine output. by the bedside 03/21/17-patient seen and examined, had couple run of V. tach. Shallow breathing. Significant shortness of breath Objective Vitals Vital Signs Date Time Temp Pulse Resp B/P (MAP) Pulse Ox O2 Delivery O2 Flow Rate FiO2 03/21/17 07:00 97.1 70 28 154/50 (84) 100 03/21/17 06:04 70 03/21/17 05:20 68 03/21/17 04:00 70 03/21/17 03:00 97.2 72 22 128/48 (74) 97 03/21/17 03:00 71 03/21/17 03:00 97 Nasal Cannula 2.00 03/21/17 02:12 72 03/21/17 01:00 72 03/21/17 00:00 78 03/20/17 23:00 72 03/20/17 23:00 97.2 75 20 122/46 (71) 98 03/20/17 23:00 98 Nasal Cannula 2.00 03/20/17 22:00 74 03/20/17 22:00 20 03/20/17 21:00 74 03/20/17 20:00 74 03/20/17 19:00 95 Nasal Cannula 3.00 03/20/17 19:00 72 03/20/17 19:00 97.6 92 28 140/53 (82) 95 03/20/17 18:01 74 03/20/17 17:00 74 03/20/17 16:01 74 03/20/17 15:15 97.6 75 29 131/47 (75) 100 03/20/17 15:00 72 03/20/17 14:24 97 Nasal Cannula 03/20/17 14:00 74 03/20/17 13:01 70 03/20/17 12:00 68 03/20/17 11:15 97.4 69 28 109/65 (80) 100 03/20/17 11:00 71 I/O 11/13/17 11/13/17 11/13/17 11/14/17 11/14/17 11/14/17 07:00 15:00 23:00 07:00 15:00 23:00 Intake Total 720 ml 720 ml 462 ml Output Total 750 ml 550 ml 300 ml Balance -30 ml 170 ml 162 ml Intake Oral 720 ml 720 ml 360 ml IV Total 102 ml Output Urine Total 750 ml 550 ml 300 ml Bladder Scan Volume Amount 617 ml 277 ml # Voids 2 # Bowel Movements 0 Result Diagram: 03/19/17 0650 03/21/17 0515 Imaging Last Impressions Chest X-Ray 03/18/17 0000 Signed Impressions: Service Date/Time: Saturday, March 18, 2017 14:58 - CONCLUSION: 1. Cardiomegaly with prominence and indistinctness of the interstitial markings characteristic of some degree of vascular congestion/CHF. 2. No confluent infiltrate or effusion. Reynold Case MD Objective Remarks GENERAL: NAD SKIN: Warm and dry. HEAD: Normocephalic. EYES: No scleral icterus. No injection or drainage. NECK: Supple, trachea midline. No JVD or lymphadenopathy. CARDIOVASCULAR: Irregular Regular rate and rhythm with II/ LUKAS RESPIRATORY: Breath sounds decreased bilaterally. Tachypnea .No accessory muscle use. GASTROINTESTINAL: Abdomen soft, non-tender, nondistended. MUSCULOSKELETAL: No cyanosis, or edema. BACK: Nontender without obvious deformity. No CVA tenderness. Procedures none A/P Problem List: (1) Acute on chronic systolic CHF (congestive heart failure), NYHA class 4 ICD Code: I50.23 - Acute on chronic systolic (congestive) heart failure (2) Acute renal failure superimposed on stage 4 chronic kidney disease ICD Code: N17.9 - Acute kidney failure, unspecified; N18.4 - Chronic kidney disease, stage 4 (severe) (3) A-fib ICD Code: I48.91 - Unspecified atrial fibrillation (4) DM (diabetes mellitus) ICD Code: E11.9 - DM (diabetes mellitus) Status: Chronic Assessment and Plan 56-year-old man with Acute on chronic systolic CHF [place] IV Currently on Lasix, Bumex drip Recent 2-D echo with EF 20% May consider LVAD, however patient with a very poor prognostic Cardiology following Acute renal failure superimposed on stage IV chronic kidney disease Cardiorenal syndrome Worsening renal indices Currently on dobutamine infusion Nephrology following Paroxysmal Atrial fibrillation Rate control on Coreg 6.5 mg by mouth twice a day, Xarelto Hyperlipidemia On Zetia Diabetes type 2 Normoglycemic on insulin sliding scale and oral hypoglycemic agents Hold metformin DVT prophylaxis: Ramesh Poor prognostic Arnaldo Lewis MD Mar 21, 2017 10:53
[2017-03-21] MEDS: MAGNESIUM OXIDE 400 MG TAB PO SCH (12:25)
[2017-03-21 14:29] LABS: BLOOD GAS BASE EXCESS -4.7 mmol/L (-2-2); BLOOD GAS CARBOXYHEMOGLOBIN 1.7 % (0-4); BLOOD GAS HCO3 18 mmol/L (22-26); BLOOD GAS METHEMOGLOBIN 1.3 % (0-2); BLOOD GAS O2 HGB SATURATION 95 % (90-100); BLOOD GAS OXYGEN CONTENT 11.7 Vol % (12.0-20.0); BLOOD GAS PCO2 22 mmHg (38-42); BLOOD GAS PO2 102 mmHg (61-120); BLOOD GAS TOTAL HGB 8.7 G/DL (12.0-16.0); TEMP CORR TO 98.6
[2017-03-21 14:30] LABS: CRITICAL VALUE YES; DRAW SITE LT BRACHIAL; LITER FLOW 2 L/M; NUMBER OF ARTERIAL PUNCTURES 2; OXYGEN DEVICE NASAL CANNULA; ULNAR PULSE PRESENT
[2017-03-21 14:31] LABS: STAT YES
--- NOTE | 2017-03-21 14:58 | PD.CONS ---
[facility] Service Critical Care Medicine Consult Requested By Dr. Lewis Reason for Consult worsening shortness of breath and end-organ failure Primary Care Physician Samir Garcia, DO History of Present Illness This is a 56yM who carries a documented history of ischemic cardiomyopathy with a known EF < 20%. He has a single-ventricle AICD. He presented on 03/16 with complaints of worsening shortness of breath and MUIR which progressed to dyspnea at rest over the time course of about a month. He denies chest pain. He states that he has never had a heart attack in the past, and per our records, the last left heart catheterization was in 2006 which showed only mild disease. On admission, he had a BNP of 3300, trop 0.05, Cr 2.6 up from a baseline around 1.7 per our last records. Nephrology and cardiology were consulted. Diuresis was attempted, but despite aggressive forced diuresis, he has gained 1 kg weight since admission. An echo from 03/18 demonstrated severely reduced LV function, severe Mitral regurgitation, severe tricuspid regurgitation, pulmonary hypertension. Despite therapy, he continues to worsen and his Cr today is up to 3.8. Critical care medicine has been consulted to evaluate and manage his worsening end-organ failure. Of note, the nursing staff paged Dr. Eaton, and he stated he would be delayed until tonight in evaluating the patient , and the patient and his have requested a second opinion in his ongoing management and worsening organ dysfunction. Review of Systems Constitutional: COMPLAINS OF: Fatigue, Weight gain, DENIES: Diaphoretic episodes, Fever, Weight loss, Chills, Night Sweats Respiratory: COMPLAINS OF: Shortness of breath, DENIES: Cough, Wheezing, Hemoptysis, Sputum production Cardiovascular: COMPLAINS OF: Dyspnea on Exertion, PND, Lower Extremity Edema, Orthopnea, DENIES: Chest pain, Palpitations, Syncope, Claudication Gastrointestinal: DENIES: Abdominal pain, Black stools, Bloody stools, Constipation, Diarrhea, Nausea, Vomiting Neurologic: DENIES: Headache, Localized weakness Psychiatric: DENIES: Confusion, Mood changes Past Family Social History Allergies: Coded Allergies: No Known Allergies (Verified Allergy, Unknown, 03/16/17) Past Medical History HTN Hyperlipidemia CAD CHF (Echo 06/03/13 w/ EF 35-40%), Echo 03/18 EF < 20-25%, severe mitral regurgitation, [id number] tricuspid regurgitation. AICD Afib on Coumadin CKD Stage III Past Surgical History AICD (Biotronik) Reported Medications Vasotec (Enalapril Maleate) 20 Mg Tab 20 Mg PO BID Januvia (Sitagliptin Phosphate) 100 Mg Tab 100 Mg PO DAILY Cardizem (Diltiazem HCl) 60 Mg Tab 180 Mg PO DAILY Alendronate (Alendronate Sodium) 70 Mg Tab 70 Mg PO Q7D Bumetanide 1 Mg Tab 1 Mg PO BID Carvedilol 6.25 Mg Tab 6.25 Mg PO BID Ferrous Sulfate 325 Mg (65 Mg Iron) Tablet 325 Mg PO DAILY Amiodarone (Amiodarone HCl) 200 Mg Tab 200 Mg PO DAILY Tamsulosin (Tamsulosin HCl) 0.4 Mg Cap 0.4 Mg PO DAILY Megestrol Acetate 400 Mg/10 Ml (10 Ml) Oral.susp 400 Mg PO DIRECTED Lyrica (Pregabalin) 50 Mg Cap 50 Mg PO BID Ezetimibe 10 Mg Tab 10 Mg PO HS Metformin (Metformin HCl) 500 Mg Tab 500 Mg PO BIDPC Xarelto (Rivaroxaban) 20 Mg Tab 20 Mg PO DAILY Magnesium Oxide 400 Mg Tab 400 Mg PO DAILY Aspirin EC (Aspirin) 81 Mg Tabdr 81 Mg PO DAILY Vitamin D3 (Cholecalciferol) 1,000 Unit Tab 5,000 Units PO DAILY Active Ordered Medications See MAR Family History Diabetes and CAD. Social History does not smoke. rare etoh use. + MJ once a week. Physical Exam Vital Signs Vital Signs Date Time Temp Pulse Resp B/P (MAP) Pulse Ox O2 Delivery O2 Flow Rate FiO2 03/21/17 14:36 77 03/21/17 13:00 70 03/21/17 12:00 70 03/21/17 11:41 26 03/21/17 11:00 98.1 75 26 154/45 (81) 97 03/21/17 11:00 70 03/21/17 11:00 Nasal Cannula 2.00 03/21/17 11:00 98.1 70 26 154/45 (81) 97 03/21/17 10:00 70 03/21/17 09:00 68 03/21/17 08:00 70 03/21/17 07:00 100 Nasal Cannula 2.00 03/21/17 07:00 97.1 70 28 154/50 (84) 100 03/21/17 07:00 70 03/21/17 06:04 70 03/21/17 05:20 68 03/21/17 04:00 70 03/21/17 03:00 97.2 72 22 128/48 (74) 97 03/21/17 03:00 71 03/21/17 03:00 97 Nasal Cannula 2.00 03/21/17 02:12 72 03/21/17 01:00 72 03/21/17 00:00 78 03/20/17 23:00 72 03/20/17 23:00 97.2 75 20 122/46 (71) 98 03/20/17 23:00 98 Nasal Cannula 2.00 03/20/17 22:00 74 03/20/17 21:00 74 03/20/17 20:00 74 03/20/17 19:00 95 Nasal Cannula 3.00 03/20/17 19:00 72 03/20/17 19:00 97.6 92 28 140/53 (82) 95 03/20/17 18:01 74 03/20/17 17:00 74 03/20/17 16:01 74 03/20/17 15:15 97.6 75 29 131/47 (75) 100 03/20/17 15:00 72 Physical Exam gen: middle-aged male, sitting upright in bed, in respiratory distress. heent: perrl. nc. at. mucous membranes moist. neck: + jvd above the level of the mandible. trachea midline. chest: tachypneic. on nc o2. bibasilar rales. cv: normal rate, irregularly irregular rhythm. afib by tele. abd: soft, nontender, nondistended. no guarding extr: 2+ pitting edema. distal pulses 2+. extremities are cool and poorly perfused. neuro: RASS 0. GCS 15. follows commands. Laboratory Laboratory Tests Test 03/21/17 05:15 03/21/17 14:16 Blood Urea Nitrogen 102 Creatinine 3.83 Random Glucose 118 Calcium Level 8.3 Magnesium Level 2.8 Sodium Level 134 Potassium Level 4.2 Chloride Level 100 Carbon Dioxide Level 19.5 Anion Gap 15 Estimat Glomerular Filtration Rate 20 Blood Gas Puncture Site LT BRACHIAL Blood Gas Patient Temperature 98.6 Blood Gas HCO3 18 Blood Gas Base Excess -4.7 Blood Gas Oxygen Saturation 95 Arterial Blood pH 7.52 Arterial Blood Partial Pressure CO2 22 Arterial Blood Partial Pressure O2 102 Arterial Blood Oxygen Content 11.7 Arterial Blood Carboxyhemoglobin 1.7 Arterial Blood Methemoglobin 1.3 Blood Gas Hemoglobin 8.7 Oxygen Delivery Device NASAL CANNULA Blood Gas Liter Flow 2 Date/Time Source Procedure Growth Status 03/18/17 16:40 Stool Stool Stool Occult Blood (SALMA) - Final HEMOCCULT NEGATIVE Complete Result Diagram: 03/19/17 0650 03/21/17 0515 Imaging Last Impressions Chest X-Ray 03/18/17 0000 Signed Impressions: Service Date/Time: Monday, March 18, 2017 14:58 - CONCLUSION: 1. Cardiomegaly with prominence and indistinctness of the interstitial markings characteristic of some degree of vascular congestion/CHF. 2. No confluent infiltrate or effusion. Reynold Case MD Assessment and Plan Assessment and Plan Assessment: 56yM with history of severe cardiomyopathy presents with decompensated congestive heart failure with worsening end-organ damage and likely cardiogenic shock. I have ordered repeat LFTs to evaluate for congestive hepatopathy and shock liver, as well as lactate and repeat BNP. Given that his weight has increased during this admission, likely he is in worsening heart failure. Most likely this is systolic dysfunction and exacerbation secondary to volume overload, however with the degree of his severe mitral regurgitation, I cannot exclude that valvulopathy is not a major factor in his worsening cardiac function. In addition, RV failure and severe TR compound the problem. I have asked a second cardiology opinion to assist at the patient's request. The patient will need invasive central pressure monitoring and likely requires repeat left and right heart catheterizations to rule out ischemic causes of his worsening cardiomyopathy and guided inotropic therapy. Will continue dobutamine for now. will hold his coreg as this is a beta-adrenergic xiomara and will decrease inotropy and cardiac output in the setting of acute cardiogenic shock. He remains very critically ill at this time with multiple organs damaged and worsening. Active Problems: Cardiogenic Shock Severe mitral regurgitation Severe cardiomyopathy, unknown etiology: ischemic vs. nonischemic Severe acute congestive heart failure exacerbation, likely combination of systolic and valvulopathy Cor pulmonale Pulmonary Edema Acute hypoxemia Respiratory Distress Acute kidney injury on Chronic Kidney Disease Stage III Possible congestive hepatopathy Plan: admit to ICU will do RHC tonight, eval filling pressures, leave [place] in continue dobutamine increased forced diuresis with bumex drip will need LHC to rule out ischemia. check repeat troponins check BNP, CMP, coags, abg I have spoken with Dr. Zapien who will evaluate the patient and make ongoing recommendations with regards to his mitral valve: likely functional from severe LV cavity dilation. will repeat echo once patient is back to dry weight and compare amount of MR. would not consider operative candidate unless severe MR persists once medically optimized. trend Cr closely and uop closely. due to ischemic injury to the kidneys, may get worse before it improves. Also, if he does not have adequate diuresis, may be forced to use ultrafiltration for cor pulmonale. Critical care time: 82 minutes, exclusive of separately billable procedures. Code Status Full Code Kojo Hernández MD Mar 21, 2017 14:58
[2017-03-21 16:07] LABS: INTERNATIONAL NORMALIZED RATIO 1.8 RATIO; PROTHROMBIN TIME - PATIENT 20.9 SEC (9.8-11.6)
[2017-03-21 16:11] LABS: ANION GAP 15 MEQ/L (5-15); AST (GOT) 40 U/L (15-37); BICARBONATE 19.4 MEQ/L (21.0-32.0); BLOOD UREA NITROGEN 108 MG/DL (7-18); CHLORIDE 100 MEQ/L (98-107); GLOMERULAR FILTRATION RATE 19 ML/MIN (>89); SODIUM (NA) 134 MEQ/L (136-145)
[2017-03-21 16:12] LABS: ALT (GPT) 39 U/L (12-78)
[2017-03-21 16:16] LABS: ALKALINE PHOSPHATASE 71 U/L (45-117); TOTAL BILIRUBIN ADULT 0.7 MG/DL (0.2-1.0)
--- NOTE | 2017-03-21 18:08 | PD.PROCEDR ---
Procedure Note Procedure Central Line Procedure Note Right IJ 8.5 Nauruan 10 cm Cordis introducer sheath Diagnosis: Cardiogenic shock Indications: Need for central pressure monitoring Consent: Written consent was obtained from the patient Anesthesia: 1% lidocaine locally Description of the Procedure: The patient was placed in the supine, mild- Trendelenburg position. The area was prepped and draped sterilely. A 19g needle was inserted under negative pressure aspiration and dark venous blood was obtained. A guidewire was inserted easily without resistance. A small incision was made using a #11 blade. Using a modified Seldinger technique, the dilator and 8.5 Nauruan, 10 cm catheter were advanced over the guidewire without resistance. All ports were aspirated and flushed, and had brisk blood return. The line was secured at the skin using 2-0 silk interrupted sutures. A Biopatch and Transparent sterile dressing were applied. There were no immediate complications noted. There was minimal EBL. The patient tolerated the procedure well. Ultrasound Guidance: Ultrasound guidance was used to identify the internal jugular vein. The vascular anatomy was normal. The right internal jugular vein did demonstrate spontaneous echo contrast secondary to poor cardiac output. The vessel was cannulated under direct, real-time ultrasound visualization. After placement of the guidewire, confirmation of the guidewire in the lumen of the vessel was made using ultrasound visualization, before dilation of the tract. A Chest x-ray has been ordered. I personally performed the procedure. Kojo Hernández MD Mar 21, 2017 18:08
--- NOTE | 2017-03-21 18:11 | PD.PROCEDR ---
Procedure Note Procedure Pulmonary Artery Catheter Procedure Note 6 Lao PA catheter through existing right IJ introducer sheath Diagnosis: Cardiogenic shock Indications: Need for central pressure monitoring and thermodilution cardiac output Consent: Written consent was obtained from the patient Anesthesia: 1% lidocaine locally Description of the Procedure: The patient was placed in the supine, mild-Reverse -Trendelenburg position. The area was prepped and draped sterilely. A 6 Fr pulmonary artery catheter was flushed, and all ports were checked, including PA , CVP, infusion port. The balloon was tested and inflated and deflated easily. Through an existing introducer sheath, the catheter was inserted to a depth of 20 cm and the balloon was inflated without resistance. The PA catheter was advanced under continuous waveform hemodynamic monitoring and appropriate RA, RV , PA, and PCWP waveforms were achieved. The balloon was deflated. The line was secured to the introducer sheath using a sterile cover. There were no immediate complications noted. There was minimal EBL. The patient tolerated the procedure well. PA catheter secured at: 56 cm. Hemodynamic Data: HR 72 Art: 150/48 (77) RAP: 16 mmHg RV: 43/7 mmHg PAP: 40/19 (30) mmHg PCWP: 19 mmHg achieved at 57 cm Mixed Venous SvO2: 48 % Cardiac Output: 3.5 L/min Cardiac Index: 1.9 SVR: 1394 dyn*s/cm^5 PVR: 3.14 Howard units A Chest x-ray has been ordered. I personally performed the procedure. Kojo Hernández MD Mar 21, 2017 18:11
--- NOTE | 2017-03-21 18:14 | RADRPT ---
EXAM DATE/TIME: 03/21/2017 17:51 [facility] COMPARISON: CHEST SINGLE AP, March 18, 2017, 14:58. INDICATIONS : Post central line placement. MEDICAL HISTORY : Hypercholesterolemia. Hypertension. AFIB. SURGICAL HISTORY : Pacemaker. ENCOUNTER: Subsequent ACUITY: 3 days PAIN SCORE: Non-responsive. LOCATION: Bilateral chest FINDINGS: Portable AP view of the chest demonstrates cardiac silhouette size at the upper limits for normal. Ca rdiac pacing device/AICD remains present. A right upper extremity PICC remains present. Right interna l jugular central line has been placed and likely represents a pulmonary artery catheter. It extends to the region of the right interlobar pulmonary artery. No pneumothorax is visualized. There is no ef fusion. CONCLUSION: 1. Right IJ central line has been placed and likely represents a pulmonary artery catheter. Distal ti p extends into the region of the right interlobar artery. 2. Otherwise, no significant change. There is stable interstitial prominence bilaterally. Caleb Segundo MD on March 21, 2017 at 18:10 Board Certified Radiologist. This report was verified electronically.
[2017-03-21] MEDS ORDERED: BUMETANIDE INJ 1 MG/4 ML VIAL IV PUSH ONE (18:15)
[2017-03-21] MEDS ORDERED: CHLOROTHIAZIDE SOD 500 MG VIAL IV ONE (18:15)
--- NOTE | 2017-03-21 19:09 | PD.CARD.PN ---
Subjective Subjective Remarks Covering for DR ALEJANDRE. End stage pump failure with Bivent ICD, stage 4 renal failure, swan inserted with IV dobutamine drip, he is feeling much better tonight, BP 120 systolic, pulse 75/min Objective Medications Current Medications Medications (Trade) Dose Ordered Sig/George Route Start Time Stop Time Status Last Admin (D50w (Vial) Inj) 50 ml UNSCH PRN IV PUSH 03/16/17 21:00 (Glucagon Inj) 1 mg UNSCH PRN OTHER 03/16/17 21:00 (NS Flush) 2 ml UNSCH PRN IV FLUSH 03/16/17 21:00 (NS Flush) 2 ml BID IV FLUSH 03/16/17 21:00 03/20/17 20:52 (Zofran Inj) 4 mg Q6H PRN IVP 03/16/17 21:00 (Tylenol) 650 mg Q6H PRN PO 03/16/17 21:00 ([place] 5-325 Mg) 1 tab Q4H PRN PO 03/16/17 21:00 (Morphine Inj) 2 mg Q3H PRN IV PUSH 03/16/17 21:00 03/19/17 20:21 (NovoLOG SUPPLEMENTAL SCALE) 1 ACHS SLIDING SCALE SQ 03/17/17 09:00 03/21/17 12:26 (Cordarone) 200 mg DAILY PO 03/17/17 09:00 03/21/17 10:41 (Ecotrin Ec) 81 mg DAILY PO 03/17/17 09:00 03/21/17 10:41 (Vitamin D3) 5,000 units DAILY PO 03/17/17 09:00 03/21/17 10:40 (Zetia) 10 mg HS PO 03/17/17 21:00 03/20/17 20:35 (Ferrous Sulfate) 325 mg DAILY PO 03/17/17 09:00 03/21/17 10:41 (Mag-Ox) 400 mg DAILY@1100 PO 03/17/17 11:00 03/21/17 12:25 (Lyrica) 50 mg BID PO 03/17/17 09:00 03/21/17 10:41 (Xarelto) 15 mg DAILY PO 03/17/17 09:15 03/21/17 10:41 (Januvia) 50 mg DAILY PO 03/17/17 09:15 03/21/17 10:41 (Flomax) 0.4 mg DAILY PO 03/17/17 09:00 03/21/17 09:00 (NS Flush) See Protocol DAILY IV FLUSH 03/19/17 09:00 (NS Flush) See Protocol UNSCH PRN IV FLUSH 03/18/17 15:00 (Heparin Central Flush) See Protocol DAILY IV FLUSH 03/19/17 09:00 (Heparin Central Flush) See Protocol UNSCH PRN IV FLUSH 03/18/17 15:00 (NS Flush) UNSCH PRN IV FLUSH 03/18/17 15:00 (Albuterol Neb) 0.63 mg Q4HR NEB PRN NEB 03/19/17 12:15 03/20/17 14:23 (Vistaril) 25 mg Q6H PRN PO 03/19/17 12:15 (Apresoline) 25 mg TID PO 03/21/17 09:00 03/21/17 18:28 (Isordil) 10 mg TID PO 03/21/17 09:00 03/21/17 12:57 Bumetanide 100 ml @ 8 mls/hr [id number] IV 03/21/17 13:00 Dobutamine HCl 250 mg/Dextrose 250 ml @ 28.01 mls/ hr [id number] PRN IV 03/21/17 22:30 Nicardipine HCl 25 mg/Sodium Chloride 250 ml @ 50 mls/hr TITRATE PRN IV 03/21/17 18:15 Vital Signs / I&O Vital Signs Date Time Temp Pulse Resp B/P (MAP) Pulse Ox O2 Delivery O2 Flow Rate FiO2 03/21/17 18:14 76 03/21/17 16:14 76 03/21/17 15:57 97.5 77 20 136/63 (87) 95 03/21/17 15:00 96 Nasal Cannula 2.00 03/21/17 15:00 98.2 76 26 142/58 (86) 96 03/21/17 15:00 76 03/21/17 14:36 77 03/21/17 13:00 70 03/21/17 12:00 70 03/21/17 11:41 26 03/21/17 11:00 98.1 75 26 154/45 (81) 97 03/21/17 11:00 70 03/21/17 11:00 Nasal Cannula 2.00 03/21/17 11:00 98.1 70 26 154/45 (81) 97 03/21/17 10:00 70 03/21/17 09:00 68 03/21/17 08:00 70 03/21/17 07:00 100 Nasal Cannula 2.00 03/21/17 07:00 97.1 70 28 154/50 (84) 100 03/21/17 07:00 70 03/21/17 06:04 70 03/21/17 05:20 68 03/21/17 04:00 70 03/21/17 03:00 97.2 72 22 128/48 (74) 97 03/21/17 03:00 71 03/21/17 03:00 97 Nasal Cannula 2.00 03/21/17 02:12 72 03/21/17 01:00 72 03/21/17 00:00 78 03/20/17 23:00 72 03/20/17 23:00 97.2 75 20 122/46 (71) 98 03/20/17 23:00 98 Nasal Cannula 2.00 03/20/17 22:00 74 03/20/17 21:00 74 03/20/17 20:00 74 03/20/17 19:00 95 Nasal Cannula 3.00 03/20/17 19:00 72 03/20/17 19:00 97.6 92 28 140/53 (82) 95 I/O 03/20/17 03/20/17 03/20/17 03/21/17 03/21/17 03/21/17 07:00 15:00 23:00 07:00 15:00 23:00 Intake Total 720 ml 720 ml 462 ml 240 ml Output Total 750 ml 550 ml 300 ml 600 ml Balance -30 ml 170 ml 162 ml -360 ml Intake Oral 720 ml 720 ml 360 ml 240 ml IV Total 102 ml Output Urine Total 750 ml 550 ml 300 ml 600 ml Bladder Scan Volume Amount 617 ml 277 ml # Voids 2 # Bowel Movements 0 Physical Exam GENERAL: SKIN: Warm and dry. HEAD: Normocephalic. EYES: No scleral icterus. No injection or drainage. NECK: Supple, trachea midline. No JVD or lymphadenopathy. CARDIOVASCULAR: Regular rate and rhythm with 1/6 pansystolic murmur at the LSB, elevated neck vein. RESPIRATORY: decreased air entry with inspiratory rales lung bases, slightly tachypneic GASTROINTESTINAL: Abdomen soft, non-tender, nondistended. MUSCULOSKELETAL: No cyanosis, or edema. BACK: Nontender without obvious deformity. No CVA tenderness. Laboratory Laboratory Tests Test 03/21/17 05:15 03/21/17 14:16 03/21/17 14:53 03/21/17 15:43 Blood Urea Nitrogen 102 MG/DL 108 MG/DL Creatinine 3.83 MG/DL 3.92 MG/DL Random Glucose 118 MG/DL 134 MG/DL Calcium Level 8.3 MG/DL 8.4 MG/DL Magnesium Level 2.8 MG/DL Sodium Level 134 MEQ/L 134 MEQ/L Potassium Level 4.2 MEQ/L 4.0 MEQ/L Chloride Level 100 MEQ/L 100 MEQ/L Carbon Dioxide Level 19.5 MEQ/L 19.4 MEQ/L Anion Gap 15 MEQ/L 15 MEQ/L Estimat Glomerular Filtration Rate 20 ML/MIN 19 ML/MIN Blood Gas Puncture Site LT BRACHIAL Blood Gas Patient Temperature 98.6 Blood Gas HCO3 18 mmol/L Blood Gas Base Excess -4.7 mmol/L Blood Gas Oxygen Saturation 95 % Arterial Blood pH 7.52 Arterial Blood Partial Pressure CO2 22 mmHg Arterial Blood Partial Pressure O2 102 mmHg Arterial Blood Oxygen Content 11.7 Vol % Arterial Blood Carboxyhemoglobin 1.7 % Arterial Blood Methemoglobin 1.3 % Blood Gas Hemoglobin 8.7 G/DL Oxygen Delivery Device NASAL CANNULA Blood Gas Liter Flow 2 L/M Prothrombin Time 20.9 SEC Prothromb Time International Ratio 1.8 RATIO Activated Partial Thromboplast Time 42.0 SEC Total Protein 7.6 GM/DL Albumin 2.7 GM/DL Alkaline Phosphatase 71 U/L Aspartate Amino Transf (AST/SGOT) 40 U/L Alanine Aminotransferase (ALT/SGPT) 39 U/L Total Bilirubin 0.7 MG/DL Lactic Acid Level 1.8 mmol/L Troponin I 0.07 NG/ML B-Type Natriuretic Peptide 3381 PG/ML Imaging Last 24 hours Impressions Chest X-Ray 03/21/17 0000 Signed Impressions: Service Date/Time: Tuesday, March 21, 2017 17:51 - CONCLUSION: 1. Right IJ central line has been placed and likely represents a pulmonary artery catheter. Distal tip extends into the region of the right interlobar artery. 2. Otherwise , no significant change. There is stable interstitial prominence bilaterally. Caleb Segundo MD Assessment and Plan Problem List: (1) Mitral regurgitation ICD Codes: I34.0 - Mitral regurgitation Status: Chronic Plan: severe MR chronic, severe TR which might have contribute to his low cardiac output state as well as renal failure, prognosis is guarded, he was evaluated for LVAD / cardiac transplant at the [facility] according to DR ALEJANDRE (2) History of CVA (cerebrovascular accident) ICD Codes: Z86.73 - History of CVA (cerebrovascular accident) Status: Chronic (3) Nonischemic dilated cardiomyopathy ICD Codes: I42.9 - Nonischemic dilated cardiomyopathy Status: Acute Plan: acute on chronic nonischemic dilated cardiomyopathy, continue IV dobutamine add imdur with hydralazine, continue diuretic (4) CKD (chronic kidney disease) stage 3, GFR 30-59 ml/min ICD Codes: N18.3 - CKD (chronic kidney disease) stage 3, GFR 30-59 ml/min Status: Acute Plan: acute on chronic, stage 4, management as per renal (5) CHF (congestive heart failure) ICD Codes: I50.9 - Heart failure, unspecified Status: Acute Plan: as mentioned above (6) Renal insufficiency ICD Codes: N28.9 - Disorder of kidney and ureter, unspecified (7) A-fib ICD Codes: I48.91 - Unspecified atrial fibrillation (8) Type 2 diabetes mellitus ICD Codes: E11.9 - Type 2 diabetes mellitus without complications (9) Chronic systolic congestive heart failure ICD Codes: I50.22 - Chronic systolic (congestive) heart failure (10) Acute kidney injury superimposed on chronic kidney disease ICD Codes: N17.9 - Acute kidney failure, unspecified; N18.9 - Chronic kidney disease, unspecified (11) S/P implantation of automatic cardioverter/defibrillator (AICD) ICD Codes: Z95.810 - S/P implantation of automatic cardioverter/defibrillator ( AICD) Status: Chronic Problem Qualifiers (1) CHF (congestive heart failure): Qualified Codes: I50.22 - Chronic systolic (congestive) heart failure Arnaldo Miramontes MD Mar 21, 2017 19:09
[2017-03-21] MEDS: BUMETANIDE INJ 100 ML IV SCH (19:25)
[2017-03-21] MEDS: DOBUTamine INJ 250 MG in DEXTROSE 5% IN WATER INJ 230 ML IV PRN ×2 (19:26)
[2017-03-21] MEDS: niCARdipine INJ 25 MG in SODIUM CHLOR 0.9% 250 ML INJ 240 ML IV PRN ×2 (21:50→23:53)
[2017-03-21] MEDS: EZETIMIBE 10 MG TAB PO SCH (22:37)
[2017-03-22] VITALS (10 sets, daily range): BP systolic 112–130; BP diastolic 45–94; PULSE 69–90; RESP 16–22; TEMP 97–98.8; O2SAT 94–99
[2017-03-22 00:48] LABS: BICARBONATE 21.2 MEQ/L (21.0-32.0); MAGNESIUM 2.8 MG/DL (1.5-2.5); POTASSIUM 3.7 MEQ/L (3.5-5.1)
[2017-03-22] MEDS: BUMETANIDE INJ 100 ML IV SCH ×3 (01:30→16:42)
[2017-03-22] MEDS: ACETAMINOPHEN/HYDROcodone 325 MG/5 MG TAB PO PRN ×2 (01:37→14:16)
[2017-03-22] MEDS: niCARdipine INJ 25 MG in SODIUM CHLOR 0.9% 250 ML INJ 240 ML IV PRN ×5 (01:54→17:20)
[2017-03-22] MEDS: DOBUTamine INJ 250 MG in DEXTROSE 5% IN WATER INJ 230 ML IV PRN ×4 (04:17→16:43)
[2017-03-22 05:09] LABS: HEMATOCRIT 26.2 % (39.0-51.0); MEAN CELL VOLUME 71.4 FL (80.0-100.0); MEAN CORPUSCULAR HEMOGLOBIN 22.7 PG (27.0-34.0); MEAN CORPUSCULAR HGB CONC 31.8 % (32.0-36.0); PLATELET COUNT 230 TH/MM3 (150-450); RED BLOOD COUNT 3.66 MIL/MM3 (4.50-5.90); RED CELL DISTRIBUTION WIDTH 21.8 % (11.6-17.2); REVIEW FLAG FINAL
[2017-03-22 05:19] LABS: APTT (PATIENT) 39.1 SEC (24.3-30.1); INTERNATIONAL NORMALIZED RATIO 1.8 RATIO; PROTHROMBIN TIME - PATIENT 19.9 SEC (9.8-11.6)
[2017-03-22 05:33] LABS: BICARBONATE 20.5 MEQ/L (21.0-32.0); MAGNESIUM 2.8 MG/DL (1.5-2.5); POTASSIUM 3.7 MEQ/L (3.5-5.1)
--- NOTE | 2017-03-22 07:32 | HHI.CCPN ---
Subjective Remarks/Hospital Course Hospital Course: This is a 56yM who carries a documented history of ischemic cardiomyopathy with a known EF < 20%. He has a single-ventricle AICD. He presented on 03/16 with complaints of worsening shortness of breath and MUIR which progressed to dyspnea at rest over the time course of about a month. He denies chest pain. He states that he has never had a heart attack in the past, and per our records, the last left heart catheterization was in 2006 which showed only mild disease. On admission, he had a BNP of 3300, trop 0.05, Cr 2.6 up from a baseline around 1.7 per our last records. Nephrology and cardiology were consulted. Diuresis was attempted, but despite aggressive forced diuresis, he has gained 1 kg weight since admission. An echo from 03/18 demonstrated severely reduced LV function, severe Mitral regurgitation, severe tricuspid regurgitation, pulmonary hypertension. Despite therapy, he continues to worsen and his Cr today is up to 3.8. Critical care medicine has been consulted to evaluate and manage his worsening end-organ failure. Of note, the nursing staff paged Dr. Eaton, and he stated he would be delayed until tonight in evaluating the patient , and the patient and his have requested a second opinion in his ongoing management and worsening organ dysfunction. Subjective: 03/22: feels subjectively much better. after midnight, uop increased to 100-300/ hr. Barrett placed for more accurate i/o's. patient denies SOB this AM. Cardene at 10 mg/hr. Dobutamine lowered from 7.5 mcg/kg/min to 5 mcg/kg/min overnight for hypertension concerns. Cr plateaued. RHC numbers at 06:30: HR 72. Art 119/43 (63). CVP 17. PAP 48/18 (29). PCWP 24. CO/CI 5.8/3.2. SVO2 67%. SVR 634. PVR 0.86 Howard. Objective Vital Signs Date Time Temp Pulse Resp B/P (MAP) Pulse Ox O2 Delivery O2 Flow Rate FiO2 03/22/17 06:00 71 112/45 (67) 03/22/17 03:00 99 Nasal Cannula 3.00 03/22/17 03:00 97.6 22 Intake and Output 03/22/17 03/22/17 03/23/17 08:00 16:00 00:00 Intake Total 1152 ml Balance 1152 ml Result Diagram: 03/22/17 0445 03/22/17 0445 Other Results Laboratory Tests Test 03/21/17 14:16 Blood Gas Puncture Site LT BRACHIAL Blood Gas Patient Temperature 98.6 Blood Gas HCO3 18 mmol/L (22-26) Blood Gas Base Excess -4.7 mmol/L (-2-2) Blood Gas Oxygen Saturation 95 % (90-100) Arterial Blood pH 7.52 (7.380-7.420) Arterial Blood Partial Pressure CO2 22 mmHg (38-42) Arterial Blood Partial Pressure O2 102 mmHg (61-120) Arterial Blood Oxygen Content 11.7 Vol % (12.0-20.0) Arterial Blood Carboxyhemoglobin 1.7 % (0-4) Arterial Blood Methemoglobin 1.3 % (0-2) Blood Gas Hemoglobin 8.7 G/DL (12.0-16.0) Oxygen Delivery Device NASAL CANNULA Blood Gas Liter Flow 2 L/M Imaging Last Impressions Chest X-Ray 03/18/17 0000 Signed Impressions: Service Date/Time: Monday, March 18, 2017 14:58 - CONCLUSION: 1. Cardiomegaly with prominence and indistinctness of the interstitial markings characteristic of some degree of vascular congestion/CHF. 2. No confluent infiltrate or effusion. Reynold Case MD Objective Remarks gen: middle-aged male, lying in bed. much less distress, although remains tachypneic. heent: perrl. nc. at. mucous membranes moist. neck: + jvd above the level of the mandible. trachea midline. right IJ cordis and swan c/d/i. chest: mildly tachypneic. on nc o2. bibasilar rales. cv: normal rate, irregularly irregular rhythm. afib by tele. intermittently paced. abd: soft, nontender, nondistended. no guarding extr: 2+ pitting edema. distal pulses 2+. peripheral perfusion improved. neuro: RASS 0. GCS 15. follows commands. Procedures none A/P Assessment and Plan Assessment: 56yM with history of severe cardiomyopathy presents with decompensated congestive heart failure with worsening end-organ damage and cardiogenic shock. Some improvements today, although BNP worse and still net+ fluid balance despite aggressive diuresis. Now we have adequate uop. Will need to give him another 12 - 24h with adequate uop and flow to see what his renal function does. If we are unable to make adequate diuresis, will need ultrafiltration. improved svo2 and CI are re-assuring. Will concentrate all drips. continue dobutamine at 5 mcg/kg/min. keep cardene for goal sbp < 120 for afterload reduction. 1L fluid restriction. overall although he feels better, we have made no improvements in his volume status, and his decompensated CHF persists with rising PCWP. Remains critically ill and very much at high risk for from this decompensation. Active Problems: Cardiogenic Shock - improving. Severe mitral regurgitation Severe cardiomyopathy, unknown etiology: ischemic vs. nonischemic Severe acute congestive heart failure exacerbation, likely combination of systolic and valvulopathy Cor pulmonale Pulmonary Edema Acute hypoxemia - slight improvement. Respiratory Distress - improving. Acute kidney injury on Chronic Kidney Disease Stage III - worsening. Plan: remain in ICU. keep swan today continue dobutamine at 5 mcg/kg/min. keep bumex drip at 2mg/hr redose diuril 500mg iv x 1. 1L fluid restriction keep Barrett today for accurate hourly i/o's. trend cardiac output. concentrate drips cardene for goal sbp < 120. will need LHC to rule out ischemia. check repeat troponins daily BNP, CMP, coags, abg with regards to his mitral valve: likely functional from severe LV cavity dilation. will repeat echo once patient is back to dry weight and compare amount of MR. would not consider operative candidate unless severe MR persists once medically optimized. trend Cr closely and uop closely. due to ischemic injury to the kidneys, may get worse before it improves. Also, if he does not have adequate diuresis, may be forced to use ultrafiltration for cor pulmonale later today or tomorrow. Critical care time: 64 minutes, exclusive of separately billable procedures. Kojo Hernández MD Mar 22, 2017 07:32
[2017-03-22] MEDS: INSULIN ASPART SUPPLEMENTAL SCALE SQ SCH ×4 (07:56→21:43)
[2017-03-22] MEDS: SODIUM CHLORIDE 0.9% FLUSH 10 ML FLUSH IV FLUSH SCH ×3 (07:56→21:44)
[2017-03-22] MEDS ORDERED: CHLOROTHIAZIDE SOD 500 MG VIAL IV ONE (08:30)
[2017-03-22] MEDS: FERROUS SULFATE 325 MG (65 MG ELEMENTAL IRON) TAB PO SCH (08:59)
[2017-03-22] MEDS: AMIODARONE 200 MG TAB PO SCH (08:59)
[2017-03-22] MEDS: hydrALAZINE HCL 25 MG TAB PO SCH ×3 (08:59→17:16)
[2017-03-22] MEDS: TAMSULOSIN HCL 0.4 MG CAP PO SCH (08:59)
[2017-03-22] MEDS: ISOSORBIDE MONONITRATE 60 MG TAB PO SCH (09:00)
[2017-03-22] MEDS: ASPIRIN EC 81 MG TABEC PO SCH (09:00)
[2017-03-22] MEDS: CHOLECALCIFEROL (VIT D3) 5000 UNIT CAP PO SCH (09:00)
[2017-03-22] MEDS ORDERED: FUROSEMIDE 40 MG/4 ML VIAL IV PUSH SCH (09:00)
[2017-03-22] MEDS: PREGABALIN 25 MG CAP PO SCH ×2 (09:00→21:43)
[2017-03-22] MEDS: RIVAROXABAN 15 MG TAB PO SCH (09:00)
--- NOTE | 2017-03-22 10:44 | PD.CARD.PN ---
Subjective Subjective Remarks Covering for DR ALEJANDRE. End stage pump failure with Bivent ICD, stage 4 renal failure, swan inserted with IV dobutamine drip, he is feeling much well this am , no SOB or CP, creatinine kept on going south. Still on IV Bumex drip. Objective Medications Current Medications Medications (Trade) Dose Ordered Sig/George Route Start Time Stop Time Status Last Admin (D50w (Vial) Inj) 50 ml UNSCH PRN IV PUSH 03/16/17 21:00 (Glucagon Inj) 1 mg UNSCH PRN OTHER 03/16/17 21:00 (NS Flush) 2 ml UNSCH PRN IV FLUSH 03/16/17 21:00 (NS Flush) 2 ml BID IV FLUSH 03/16/17 21:00 03/21/17 22:37 (Zofran Inj) 4 mg Q6H PRN IVP 03/16/17 21:00 (Tylenol) 650 mg Q6H PRN PO 03/16/17 21:00 ([place] 5-325 Mg) 1 tab Q4H PRN PO 03/16/17 21:00 03/22/17 01:37 (Morphine Inj) 2 mg Q3H PRN IV PUSH 03/16/17 21:00 03/19/17 20:21 (NovoLOG SUPPLEMENTAL SCALE) 1 ACHS SLIDING SCALE SQ 03/17/17 09:00 03/21/17 22:37 (Cordarone) 200 mg DAILY PO 03/17/17 09:00 03/22/17 08:59 (Ecotrin Ec) 81 mg DAILY PO 03/17/17 09:00 03/22/17 09:00 (Vitamin D3) 5,000 units DAILY PO 03/17/17 09:00 03/22/17 09:00 (Zetia) 10 mg HS PO 03/17/17 21:00 03/21/17 22:37 (Ferrous Sulfate) 325 mg DAILY PO 03/17/17 09:00 03/22/17 08:59 (Mag-Ox) 400 mg DAILY@1100 PO 03/17/17 11:00 03/21/17 12:25 (Lyrica) 50 mg BID PO 03/17/17 09:00 03/22/17 09:00 (Xarelto) 15 mg DAILY PO 03/17/17 09:15 03/22/17 09:00 (Januvia) 50 mg DAILY PO 03/17/17 09:15 03/22/17 09:00 (Flomax) 0.4 mg DAILY PO 03/17/17 09:00 03/22/17 08:59 (NS Flush) See Protocol DAILY IV FLUSH 03/19/17 09:00 (NS Flush) See Protocol UNSCH PRN IV FLUSH 03/18/17 15:00 (Heparin Central Flush) See Protocol DAILY IV FLUSH 03/19/17 09:00 (Heparin Central Flush) See Protocol UNSCH PRN IV FLUSH 03/18/17 15:00 (NS Flush) UNSCH PRN IV FLUSH 03/18/17 15:00 (Albuterol Neb) 0.63 mg Q4HR NEB PRN NEB 03/19/17 12:15 03/20/17 14:23 (Vistaril) 25 mg Q6H PRN PO 03/19/17 12:15 (Apresoline) 25 mg TID PO 03/21/17 09:00 03/22/17 08:59 Bumetanide 100 ml @ 8 mls/hr [id number] IV 03/21/17 13:00 03/22/17 04:14 Nicardipine HCl 25 mg/Sodium Chloride 250 ml @ 50 mls/hr TITRATE PRN IV 03/21/17 18:15 03/22/17 05:56 (Imdur) 60 mg DAILY@07 PO 03/22/17 07:00 03/22/17 09:00 Dobutamine HCl 250 mg/Dextrose 250 ml @ 18.67 mls/ hr [id number] PRN IV 03/22/17 22:30 Vital Signs / I&O Vital Signs Date Time Temp Pulse Resp B/P (MAP) Pulse Ox O2 Delivery O2 Flow Rate FiO2 03/22/17 07:45 99 Nasal Cannula 2.00 03/22/17 07:00 97.4 69 18 115/47 (69) 97 03/22/17 07:00 98 Nasal Cannula 2.00 03/22/17 07:00 72 03/22/17 06:00 71 112/45 (67) 03/22/17 05:56 71 112/45 03/22/17 04:16 70 120/50 03/22/17 03:00 99 Nasal Cannula 3.00 03/22/17 03:00 97.6 74 22 130/57 (81) 95 03/22/17 03:00 72 03/22/17 01:54 74 112/45 03/21/17 23:53 75 132/51 03/21/17 23:00 97 Nasal Cannula 3.00 03/21/17 23:00 97.6 76 18 146/45 (78) 93 03/21/17 23:00 76 03/21/17 22:00 76 146/45 03/21/17 21:50 86 148/58 03/21/17 20:52 97 Nasal Cannula 2.00 03/21/17 20:00 81 119/44 (69) 03/21/17 19:15 99 Nasal Cannula 3.00 03/21/17 19:15 98.5 76 20 96/45 (62) 99 03/21/17 19:00 77 03/21/17 18:14 76 03/21/17 17:51 97.8 03/21/17 16:14 76 03/21/17 15:57 97.5 77 20 136/63 (87) 95 03/21/17 15:00 96 Nasal Cannula 2.00 03/21/17 15:00 98.2 76 26 142/58 (86) 96 03/21/17 15:00 76 03/21/17 14:36 77 03/21/17 13:00 70 03/21/17 12:00 70 03/21/17 11:41 26 03/21/17 11:00 98.1 75 26 154/45 (81) 97 03/21/17 11:00 70 03/21/17 11:00 Nasal Cannula 2.00 03/21/17 11:00 98.1 70 26 154/45 (81) 97 I/O 03/21/17 03/21/17 03/21/17 03/22/17 03/22/17 03/22/17 07:00 15:00 23:00 07:00 15:00 23:00 Intake Total 462 ml 371 ml 1882 ml Output Total 300 ml 600 ml 1900 ml Balance 162 ml -229 ml -18 ml Intake Oral 360 ml 240 ml 480 ml IV Total 102 ml 131 ml 1402 ml Output Urine Total 300 ml 600 ml 1900 ml Bladder Scan Volume Amount 277 ml # Bowel Movements 0 Physical Exam GENERAL: SKIN: Warm and dry. HEAD: Normocephalic. EYES: No scleral icterus. No injection or drainage. NECK: Supple, trachea midline. No JVD or lymphadenopathy. CARDIOVASCULAR: Regular rate and rhythm with 1/6 pansystolic murmur at the LSB, elevated neck vein. RESPIRATORY: decreased air entry with no rales GASTROINTESTINAL: Abdomen soft, non-tender, nondistended. MUSCULOSKELETAL: No cyanosis, or edema. BACK: Nontender without obvious deformity. No CVA tenderness. Laboratory Laboratory Tests Test 03/21/17 14:16 03/21/17 14:53 03/21/17 15:43 03/22/17 00:00 Blood Gas Puncture Site LT BRACHIAL Blood Gas Patient Temperature 98.6 Blood Gas HCO3 18 mmol/L Blood Gas Base Excess -4.7 mmol/L Blood Gas Oxygen Saturation 95 % Arterial Blood pH 7.52 Arterial Blood Partial Pressure CO2 22 mmHg Arterial Blood Partial Pressure O2 102 mmHg Arterial Blood Oxygen Content 11.7 Vol % Arterial Blood Carboxyhemoglobin 1.7 % Arterial Blood Methemoglobin 1.3 % Blood Gas Hemoglobin 8.7 G/DL Oxygen Delivery Device NASAL CANNULA Blood Gas Liter Flow 2 L/M Prothrombin Time 20.9 SEC Prothromb Time International Ratio 1.8 RATIO Activated Partial Thromboplast Time 42.0 SEC Blood Urea Nitrogen 108 MG/DL 101 MG/DL Creatinine 3.92 MG/DL 3.95 MG/DL Random Glucose 134 MG/DL 166 MG/DL Total Protein 7.6 GM/DL Albumin 2.7 GM/DL Calcium Level 8.4 MG/DL 8.1 MG/DL Alkaline Phosphatase 71 U/L Aspartate Amino Transf (AST/SGOT) 40 U/L Alanine Aminotransferase (ALT/SGPT) 39 U/L Total Bilirubin 0.7 MG/DL Sodium Level 134 MEQ/L 134 MEQ/L Potassium Level 4.0 MEQ/L 3.7 MEQ/L Chloride Level 100 MEQ/L 100 MEQ/L Carbon Dioxide Level 19.4 MEQ/L 21.2 MEQ/L Anion Gap 15 MEQ/L 13 MEQ/L Estimat Glomerular Filtration Rate 19 ML/MIN 19 ML/MIN Lactic Acid Level 1.8 mmol/L Troponin I 0.07 NG/ML B-Type Natriuretic Peptide 3381 PG/ML Magnesium Level 2.8 MG/DL Test 03/22/17 04:45 White Blood Count 9.0 TH/MM3 Red Blood Count 3.66 MIL/MM3 Hemoglobin 8.3 GM/DL Hematocrit 26.2 % Mean Corpuscular Volume 71.4 FL Mean Corpuscular Hemoglobin 22.7 PG Mean Corpuscular Hemoglobin Concent 31.8 % Red Cell Distribution Width 21.8 % Platelet Count 230 TH/MM3 Mean Platelet Volume 8.7 FL Prothrombin Time 19.9 SEC Prothromb Time International Ratio 1.8 RATIO Activated Partial Thromboplast Time 39.1 SEC Blood Urea Nitrogen 108 MG/DL Creatinine 4.05 MG/DL Random Glucose 132 MG/DL Calcium Level 8.0 MG/DL Magnesium Level 2.8 MG/DL Sodium Level 135 MEQ/L Potassium Level 3.7 MEQ/L Chloride Level 100 MEQ/L Carbon Dioxide Level 20.5 MEQ/L Anion Gap 15 MEQ/L Estimat Glomerular Filtration Rate 19 ML/MIN B-Type Natriuretic Peptide 3435 PG/ML Assessment and Plan Problem List: (1) Mitral regurgitation ICD Codes: I34.0 - Mitral regurgitation Status: Chronic (2) History of CVA (cerebrovascular accident) ICD Codes: Z86.73 - History of CVA (cerebrovascular accident) Status: Chronic (3) Nonischemic dilated cardiomyopathy ICD Codes: I42.9 - Nonischemic dilated cardiomyopathy Status: Acute Plan: I will recommend restarting low dose coreg when IV nicardipine being tapered off, I will leave this to DR Skinner, He is not an ideal candidate for LVAD and transplant because of renal failure and hx of CVA, he was evaluated by [place] for that in the past according to DR ALEJANDRE. Will sign off since DR SOLIS will be on the case. If you need us back on the case please contact DR ALEJANDRE again (4) CKD (chronic kidney disease) stage 3, GFR 30-59 ml/min ICD Codes: N18.3 - CKD (chronic kidney disease) stage 3, GFR 30-59 ml/min Status: Acute Plan: acute on chronic, will leave this to Renal, should taper off IV Bumex (5) CHF (congestive heart failure) ICD Codes: I50.9 - Heart failure, unspecified Status: Acute (6) Renal insufficiency ICD Codes: N28.9 - Disorder of kidney and ureter, unspecified (7) A-fib ICD Codes: I48.91 - Unspecified atrial fibrillation (8) Type 2 diabetes mellitus ICD Codes: E11.9 - Type 2 diabetes mellitus without complications (9) Chronic systolic congestive heart failure ICD Codes: I50.22 - Chronic systolic (congestive) heart failure (10) Acute kidney injury superimposed on chronic kidney disease ICD Codes: N17.9 - Acute kidney failure, unspecified; N18.9 - Chronic kidney disease, unspecified (11) S/P implantation of automatic cardioverter/defibrillator (AICD) ICD Codes: Z95.810 - S/P implantation of automatic cardioverter/defibrillator ( AICD) Status: Chronic Problem Qualifiers (1) CHF (congestive heart failure): Qualified Codes: I50.22 - Chronic systolic (congestive) heart failure (2) A-fib: Qualified Codes: I48.0 - Paroxysmal atrial fibrillation Arnaldo Miramontes MD Mar 22, 2017 10:44
--- NOTE | 2017-03-22 11:41 | HHI.NPPN ---
Subjective General Problems: Anemia, Heart Disease Renal Failure: Chronic Interval History Moved to CVICU. A [place] Chiqui catheter was placed, right side. He is on bumex, dobutamine, and nicardipine gtts. Excellent urine output. (Alfreda Hernandez) Objective Data Data Vital Signs Date Time Temp Pulse Resp B/P (MAP) Pulse Ox O2 Delivery O2 Flow Rate FiO2 03/22/17 11:00 97.2 74 20 116/49 (71) 94 03/22/17 11:00 73 03/22/17 11:00 94 Nasal Cannula 2.00 03/22/17 07:45 99 Nasal Cannula 2.00 03/22/17 07:00 97.4 69 18 115/47 (69) 97 03/22/17 07:00 98 Nasal Cannula 2.00 03/22/17 07:00 72 03/22/17 06:00 71 112/45 (67) 03/22/17 05:56 71 112/45 03/22/17 04:16 70 120/50 03/22/17 03:00 99 Nasal Cannula 3.00 03/22/17 03:00 97.6 74 22 130/57 (81) 95 03/22/17 03:00 72 03/22/17 01:54 74 112/45 03/21/17 23:53 75 132/51 03/21/17 23:00 97 Nasal Cannula 3.00 03/21/17 23:00 97.6 76 18 146/45 (78) 93 03/21/17 23:00 76 03/21/17 22:00 76 146/45 03/21/17 21:50 86 148/58 03/21/17 20:52 97 Nasal Cannula 2.00 03/21/17 20:00 81 119/44 (69) 03/21/17 19:15 99 Nasal Cannula 3.00 03/21/17 19:15 98.5 76 20 96/45 (62) 99 03/21/17 19:00 77 03/21/17 18:14 76 03/21/17 17:51 97.8 03/21/17 16:14 76 03/21/17 15:57 97.5 77 20 136/63 (87) 95 03/21/17 15:00 96 Nasal Cannula 2.00 03/21/17 15:00 98.2 76 26 142/58 (86) 96 03/21/17 15:00 76 03/21/17 14:36 77 03/21/17 13:00 70 03/21/17 12:00 70 03/21/17 11:41 26 (Alfreda Hernandez) -: 03/22/17 0445 03/22/17 0445 Imaging Last 72 hours Impressions Chest X-Ray 03/21/17 0000 Signed Impressions: Service Date/Time: Tuesday, March 21, 2017 17:51 - CONCLUSION: 1. Right IJ central line has been placed and likely represents a pulmonary artery catheter. Distal tip extends into the region of the right interlobar artery. 2. Otherwise , no significant change. There is stable interstitial prominence bilaterally. Caleb Segundo MD Tubes & Lines: Barrett Drip Comment Dobutamine, nicardipine, bumex (Alfreda Hernandez) Physical Exam General Appearance: Well Developed, Well Nourished, Comfortable, Malnourished (Alfreda Hernandez) Eyes Eye Exam: Pupils Equal (Alfreda Hernandez) Neck Neck Exam: Neck Supple (Alfreda Hernandez) Pulmonary Resp Exam: Breath Sounds Equal, No Distress, Decreased Bases, Diminished Breath Sounds (Alfreda Hernandez) Cardiology CV Exam: Good Perfusion, Irregular, Murmur CV Remarks AICD left chest (Alfreda Hernandez) Gastrointestinal/Abdomen GI Exam: Soft, Non-Tender, Bowel Sounds Present (Alfreda Hernandez) Genitourinary Exam: Clear Urine (Alfreda Hernandez) Musculoskeletal MS Exam: Joints Intact, Good Strength, Atrophy (Alfreda Hernandez) Integumentary Skin Exam: Clear, Warm, Dry, Intact (Alfreda Hernandez) Extremeties Extremities Exam: No Edema, Pedal Pulses Palpable (Alfreda Hernandez) Neurologic Neuro Exam: Alert, Awake, Oriented, Speech Clear, Moving All Extremities (Alfreda Hernandez) Psychiatric Psych Exam: Appropriate Responses (Alfreda Hernandez) VTE Prophylaxis Device: SCDs (Alfreda Hernandez) Assessment/Plan Discussed Condition With: Patient Assessment Summary: Fluid/Volume Overload, CHF, CKD Stage III, CKD Stage IV Problem List: (1) Acute kidney injury superimposed on chronic kidney disease ICD Codes: N17.9 - Acute kidney failure, unspecified; N18.9 - Chronic kidney disease, unspecified Plan: He has underlying stage III to IV CKD, may have nephrosclerosis. FELECIA likely from decompensated CHF with increased renal venous pressure. Possible cardiorenal syndrome. On Dobutamine and bumex infusions Renal function is mostly stable today Excellent urine output Limited options exist, continue diuresis Consider LVAD? possible transfer to tertiary center for heart transplant? Not a candidate for renal replacement therapy Follow BMP Avoid IVF, nephrotoxins. (2) Chronic systolic congestive heart failure ICD Codes: I50.22 - Chronic systolic (congestive) heart failure Plan: [place] Chiqui placed, see measurements Continue diuresis Cardiology following; second opinion requested Consider palliative consult. He is on dobutamine gtt (3) Atrial fibrillation ICD Codes: I48.91 - Unspecified atrial fibrillation Plan: Rate controlled On Xarelto (4) Type 2 diabetes mellitus ICD Codes: E11.9 - Type 2 diabetes mellitus without complications Plan: Avoid Metformin. Insulin coverage, maintain blood glucose between 140 and 180 while hospitalized. (Alfreda Hernandez) Plan patient was seen and examined. Notes were reviewed. Good urine output currently with Bumex drip. Renal function is worse. If he is not a candidate for LVAD or heart transplant, he is not a candidate for renal replacement therapy: he will not tolerate it. Suggest palliative care/hospice. (Doc Salazar MD) Alfreda Hernandez Mar 22, 2017 11:40 Doc Salazar MD Mar 22, 2017 21:14
[2017-03-22] MEDS: MAGNESIUM OXIDE 400 MG TAB PO SCH (12:28)
[2017-03-22 12:55] LABS: BICARBONATE 20.1 MEQ/L (21.0-32.0); MAGNESIUM 2.6 MG/DL (1.5-2.5); POTASSIUM 3.7 MEQ/L (3.5-5.1)
[2017-03-22] MEDS ORDERED: METOLAZONE 5 MG TAB PO ONE (13:00)
[2017-03-22] MEDS ORDERED: POTASSIUM CHLOR 40 MEQ PREMIX 100 ML IV ONE (15:30)
[2017-03-22] MEDS: MAGNESIUM SULFATE 1 GM PREMIX 100 ML IV SCH ×2 (15:42→16:42)
[2017-03-22] MEDS: hydrALAZINE HCL 20 MG/ML VIAL IV PUSH PRN ×2 (18:06→23:55)
[2017-03-22 18:23] LABS: BICARBONATE 19.4 MEQ/L (21.0-32.0); MAGNESIUM 3.5 MG/DL (1.5-2.5); POTASSIUM 4.7 MEQ/L (3.5-5.1)
[2017-03-22] MEDS: EZETIMIBE 10 MG TAB PO SCH (21:43)
[2017-03-23] VITALS (12 sets, daily range): BP systolic 117–141; BP diastolic 51–64; PULSE 70–86; RESP 16–24; TEMP 97.6–99.6; O2SAT 95–98
[2017-03-23] MEDS: hydrALAZINE HCL 20 MG/ML VIAL IV PUSH PRN ×4 (01:16→11:19)
[2017-03-23 04:31] LABS: HEMATOCRIT 24.8 % (39.0-51.0); MEAN CELL VOLUME 71.6 FL (80.0-100.0); MEAN CORPUSCULAR HEMOGLOBIN 22.8 PG (27.0-34.0); MEAN CORPUSCULAR HGB CONC 31.8 % (32.0-36.0); PLATELET COUNT 216 TH/MM3 (150-450); RED BLOOD COUNT 3.46 MIL/MM3 (4.50-5.90); RED CELL DISTRIBUTION WIDTH 22.4 % (11.6-17.2); REVIEW FLAG FINAL; WHITE BLOOD COUNT 8.8 TH/MM3 (4.0-11.0)
[2017-03-23 04:40] LABS: INTERNATIONAL NORMALIZED RATIO 1.6 RATIO; PROTHROMBIN TIME - PATIENT 17.8 SEC (9.8-11.6)
[2017-03-23 05:04] LABS: BICARBONATE 19.8 MEQ/L (21.0-32.0); MAGNESIUM 3.3 MG/DL (1.5-2.5); POTASSIUM 3.8 MEQ/L (3.5-5.1)
[2017-03-23] MEDS: BUMETANIDE INJ 100 ML IV SCH (05:26)
[2017-03-23] MEDS: ISOSORBIDE MONONITRATE 60 MG TAB PO SCH (06:15)
[2017-03-23] MEDS ORDERED: CHLOROTHIAZIDE SOD 500 MG VIAL IV ONE ×2 (07:00→17:00)
--- NOTE | 2017-03-23 07:03 | HHI.CCPN ---
Subjective Remarks/Hospital Course Hospital Course: This is a 56yM who carries a documented history of ischemic cardiomyopathy with a known EF < 20%. He has a single-ventricle AICD. He presented on 03/16 with complaints of worsening shortness of breath and MUIR which progressed to dyspnea at rest over the time course of about a month. He denies chest pain. He states that he has never had a heart attack in the past, and per our records, the last left heart catheterization was in 2006 which showed only mild disease. On admission, he had a BNP of 3300, trop 0.05, Cr 2.6 up from a baseline around 1.7 per our last records. Nephrology and cardiology were consulted. Diuresis was attempted, but despite aggressive forced diuresis, he has gained 1 kg weight since admission. An echo from 03/18 demonstrated severely reduced LV function, severe Mitral regurgitation, severe tricuspid regurgitation, pulmonary hypertension. Despite therapy, he continues to worsen and his Cr today is up to 3.8. Critical care medicine has been consulted to evaluate and manage his worsening end-organ failure. Of note, the nursing staff paged Dr. Eaton, and he stated he would be delayed until tonight in evaluating the patient , and the patient and his have requested a second opinion in his ongoing management and worsening organ dysfunction. Subjective: 03/22: feels subjectively much better. after midnight, uop increased to 100-300/ hr. Barrett placed for more accurate i/o's. patient denies SOB this AM. Cardene at 10 mg/hr. Dobutamine lowered from 7.5 mcg/kg/min to 5 mcg/kg/min overnight for hypertension concerns. Cr plateaued. RHC numbers at 06:30: HR 72. Art 119/43 (63). CVP 17. PAP 48/18 (29). PCWP 24. CO/CI 5.8/3.2. SVO2 67%. SVR 634. PVR 0.86 Howard. 03/23: continues to feel better subjectively. SOB continues to improve. uop improving with > 1L out over last 12h. However, Cr and BUN continue to rise. still requires intermittent iv hydralazine for goal sbp < 120, but off cardene now. still on bumex drip at 2 mg/hr. BNP also lower for the first time today, and weight continues to improve, although slowly. RHC numbers at 06:20: HR 72. Art 117/52 (77). CVP 20. PAP 52/16 (30). PCWP 20. CO/CI: 5.4/3. SVR 845. PVR 1.8 Howard. Objective Vital Signs Date Time Temp Pulse Resp B/P (MAP) Pulse Ox O2 Delivery O2 Flow Rate FiO2 03/23/17 03:00 98.0 71 16 120/54 (76) 97 03/23/17 03:00 Nasal Cannula 2.00 Intake and Output 03/23/17 03/23/17 03/24/17 08:00 16:00 00:00 Intake Total 510 ml Output Total 1750 ml Balance -1240 ml Result Diagram: 03/23/1740903/23/17409 Imaging Last Impressions Chest X-Ray 03/18/17 0000 Signed Impressions: Service Date/Time: Monday, March 18, 2017 14:58 - CONCLUSION: 1. Cardiomegaly with prominence and indistinctness of the interstitial markings characteristic of some degree of vascular congestion/CHF. 2. No confluent infiltrate or effusion. Reynold Case MD Objective Remarks gen: middle-aged male, lying in bed. slightly tachypneic. heent: perrl. nc. at. mucous membranes moist. neck: + jvd above the level of the mandible. trachea midline. right IJ cordis and swan c/d/i. chest: mildly tachypneic. on nc o2. bibasilar rales. cv: normal rate, irregularly irregular rhythm. afib by tele. intermittently paced. abd: soft, nontender, nondistended. no guarding extr: 2+ pitting edema. distal pulses 2+. peripheral perfusion improved. neuro: RASS 0. GCS 15. follows commands. Procedures none A/P Assessment and Plan Assessment: 56yM with history of severe cardiomyopathy presents with decompensated congestive heart failure with worsening end-organ damage and cardiogenic shock. BNP and weight slightly improved, although he still has likely 10-15 kg up above dry weight, and we are only making very mild improvements in his overall volume status. We do have adequate uop and are achieving a net negative fluid balance. I do not see any reason why ultrafiltration or Renal Replacement Therapy is contra-indicated in this patient , and given his systemic blood pressure, he should have no problem tolerating this. I also do not see any current absolute contra-indication to VAD/Tx work-up , although in his current decompensated state, would not be a candidate for any kind of work-up at present. If we cannot achieve a negative balance at any point , I would strongly consider renal replacement therapy as an option for him to optimize fluid balance. Still highly complex and at high risk for decompensation and . Acute kidney injury worsens today and he is in active kidney failure. Remains critically ill with multiple end-organs at risk. Spoke with Dr. Zapien and again plan to hold on LHC for risk of contrast load: will need LHC at some point, but will wait until we have [employer] or some degree of renal recovery. Active Problems: Cardiogenic Shock - improving. Severe mitral regurgitation Severe cardiomyopathy, unknown etiology: ischemic vs. nonischemic Severe acute congestive heart failure exacerbation, likely combination of systolic and valvulopathy Cor pulmonale Pulmonary Edema Acute hypoxemia - slight improvement. Respiratory Distress - improving. Acute kidney injury on Chronic Kidney Disease Stage III - persistent and worsening. Plan: remain in ICU. keep swan again today. continue dobutamine at 5 mcg/kg/min. keep bumex drip at 2mg/hr redose diuril 500mg iv x 1 again this AM. 1L fluid restriction keep Barrett today for accurate hourly i/o's. trend cardiac output. concentrate drips prn hydralazine and cardene for goal sbp < 120. will need LHC to rule out ischemia, but will hold for now given severe kidney injury. no contra-indication for renal replacement therapy if we cannot achieve volume status goals and hemodynamic goals with diuresis alone. daily BNP, CMP, coags, abg with regards to his mitral valve: likely functional from severe LV cavity dilation. will repeat echo once patient is back to dry weight and compare amount of MR. would not consider operative candidate unless severe MR persists once medically optimized. R IJ Cordis with PAC: 03/21. must remain today while active hemodynamic management. Critical care time: 41 minutes, exclusive of separately billable procedures. Kojo Hernández MD Mar 23, 2017 07:03
[2017-03-23] MEDS: DOBUTamine INJ 250 MG in DEXTROSE 5% IN WATER INJ 230 ML IV PRN ×4 (08:00→21:31)
[2017-03-23] MEDS: INSULIN ASPART SUPPLEMENTAL SCALE SQ SCH ×4 (08:00→21:30)
[2017-03-23] MEDS: SODIUM CHLORIDE 0.9% FLUSH 10 ML FLUSH IV FLUSH SCH ×3 (08:11→21:31)
[2017-03-23] MEDS: RIVAROXABAN 15 MG TAB PO SCH ×2 (08:32→08:38)
[2017-03-23] MEDS: CHOLECALCIFEROL (VIT D3) 5000 UNIT CAP PO SCH (08:33)
[2017-03-23] MEDS: ASPIRIN EC 81 MG TABEC PO SCH (08:33)
[2017-03-23] MEDS: PREGABALIN 25 MG CAP PO SCH ×2 (08:34→21:30)
[2017-03-23] MEDS: AMIODARONE 200 MG TAB PO SCH (08:34)
[2017-03-23] MEDS: FERROUS SULFATE 325 MG (65 MG ELEMENTAL IRON) TAB PO SCH (08:35)
[2017-03-23] MEDS: TAMSULOSIN HCL 0.4 MG CAP PO SCH (08:35)
[2017-03-23] MEDS: hydrALAZINE HCL 25 MG TAB PO SCH ×3 (08:35→17:32)
[2017-03-23] MEDS: MAGNESIUM OXIDE 400 MG TAB PO SCH (11:19)
[2017-03-23 14:26] LABS: BICARBONATE 19.6 MEQ/L (21.0-32.0); POTASSIUM 3.8 MEQ/L (3.5-5.1)
--- NOTE | 2017-03-23 16:46 | PD.CONS ---
HPI Consult Requested By Primary Care Physician Samir Garcia DO History of Present Illness 56 y/o M pmhx significant for ? ischemic cardiomyopathy vs. alcohol mediated with EF < 20%, single-ventricle AICD admitted on 03/16 with complaints of worsening shortness of breath on minimal exertion. He denies chest pain. On admission, he had a BNP of 3300, trop 0.05, Cr 2.6 up from a baseline around 1.7 per our last records. Nephrology and cardiology were consulted. Diuresis was attempted, but despite aggressive forced diuresis, he has gained 1 kg weight since admission. An echo from 03/18 demonstrated severely reduced LV function, severe mitral regurgitation, severe tricuspid regurgitation, pulmonary hypertension. Despite therapy, he continues to worsen and his Cr today is up to 3.8. A second Cardiology opinion has been requested to evaluate his worsening end-organ failure. Review of Systems Consitutional: DENIES: Fatigue, Fever, Chills, Weight gain, Weight loss Eyes: DENIES: Amaurosis Fugax, Change in vision HEENT: DENIES: Lightheadedness, Change in hearing Respiratory: COMPLAINS OF: Shortness of breath Cardiovascular: DENIES: See HPI, Chest pain, Palpitations, Syncope, Tachycardia Gastrointestinal: DENIES: Nausea, Vomiting, Change in bowel habits, Reflux, Bloody stools, Melena Genitourinary: DENIES: Urinary incontinence, Difficulty voiding Integumentary: DENIES: Rash Neurologic: DENIES: Tingling or numbness, Memory problems, Poor Balance, Stroke symptoms Musculoskeletal: DENIES: Joint pain, Muscle pain, Limited range of motion, Back pain Psychiatric: DENIES: Anxiety, Depression, Sleep disturbances Hematologic: DENIES: Bruising tendencies, Bleeding tendencies Endocrine: DENIES: Weight gain, Weight loss, Thyroid disease Past Family Social History Allergies: Coded Allergies: No Known Allergies (Verified Allergy, Unknown, 03/16/17) Past Medical History HTN Hyperlipidemia CAD CHF (Echo 06/03/13 w/ EF 35-40%), Echo 03/18 EF < 20-25%, severe mitral regurgitation, [id number] tricuspid regurgitation. AICD Afib on Coumadin CKD Stage III Past Surgical History AICD (Biotronik) Reported Medications Reported Meds & Active Scripts Active Reported Vasotec (Enalapril Maleate) 20 Mg Tab 20 Mg PO BID Januvia (Sitagliptin Phosphate) 100 Mg Tab 100 Mg PO DAILY Cardizem (Diltiazem HCl) 60 Mg Tab 180 Mg PO DAILY Alendronate (Alendronate Sodium) 70 Mg Tab 70 Mg PO Q7D Bumetanide 1 Mg Tab 1 Mg PO BID Carvedilol 6.25 Mg Tab 6.25 Mg PO BID Ferrous Sulfate 325 Mg (65 Mg Iron) Tablet 325 Mg PO DAILY Amiodarone (Amiodarone HCl) 200 Mg Tab 200 Mg PO DAILY Tamsulosin (Tamsulosin HCl) 0.4 Mg Cap 0.4 Mg PO DAILY Megestrol Acetate 400 Mg/10 Ml (10 Ml) Oral.susp 400 Mg PO DIRECTED Lyrica (Pregabalin) 50 Mg Cap 50 Mg PO BID Ezetimibe 10 Mg Tab 10 Mg PO HS Metformin (Metformin HCl) 500 Mg Tab 500 Mg PO BIDPC Xarelto (Rivaroxaban) 20 Mg Tab 20 Mg PO DAILY Magnesium Oxide 400 Mg Tab 400 Mg PO DAILY Aspirin EC (Aspirin) 81 Mg Tabdr 81 Mg PO DAILY Vitamin D3 (Cholecalciferol) 1,000 Unit Tab 5,000 Units PO DAILY Active Ordered Medications Current Medications Medications (Trade) Dose Ordered Sig/George Route Start Time Stop Time Status Last Admin (D50w (Vial) Inj) 50 ml UNSCH PRN IV PUSH 03/16/17 21:00 (Glucagon Inj) 1 mg UNSCH PRN OTHER 03/16/17 21:00 (NS Flush) 2 ml UNSCH PRN IV FLUSH 03/16/17 21:00 (NS Flush) 2 ml BID IV FLUSH 03/16/17 21:00 03/22/17 21:44 (Zofran Inj) 4 mg Q6H PRN IVP 03/16/17 21:00 (Tylenol) 650 mg Q6H PRN PO 03/16/17 21:00 (Rialto 5-325 Mg) 1 tab Q4H PRN PO 03/16/17 21:00 03/22/17 14:16 (Morphine Inj) 2 mg Q3H PRN IV PUSH 03/16/17 21:00 03/19/17 20:21 (NovoLOG SUPPLEMENTAL SCALE) 1 ACHS SLIDING SCALE SQ 03/17/17 09:00 03/23/17 11:21 (Cordarone) 200 mg DAILY PO 03/17/17 09:00 03/23/17 08:34 (Ecotrin Ec) 81 mg DAILY PO 03/17/17 09:00 03/23/17 08:33 (Vitamin D3) 5,000 units DAILY PO 03/17/17 09:00 03/23/17 08:33 (Zetia) 10 mg HS PO 03/17/17 21:00 03/22/17 21:43 (Ferrous Sulfate) 325 mg DAILY PO 03/17/17 09:00 03/23/17 08:35 (Mag-Ox) 400 mg DAILY@1100 PO 03/17/17 11:00 03/23/17 11:19 (Lyrica) 50 mg BID PO 03/17/17 09:00 03/23/17 08:34 (Xarelto) 15 mg DAILY PO 03/17/17 09:15 03/23/17 08:38 (Januvia) 50 mg DAILY PO 03/17/17 09:15 03/23/17 08:33 (Flomax) 0.4 mg DAILY PO 03/17/17 09:00 03/23/17 08:35 (NS Flush) See Protocol DAILY IV FLUSH 03/19/17 09:00 (NS Flush) See Protocol UNSCH PRN IV FLUSH 03/18/17 15:00 (Heparin Central Flush) See Protocol DAILY IV FLUSH 03/19/17 09:00 (Heparin Central Flush) See Protocol UNSCH PRN IV FLUSH 03/18/17 15:00 (NS Flush) UNSCH PRN IV FLUSH 03/18/17 15:00 (Albuterol Neb) 0.63 mg Q4HR NEB PRN NEB 03/19/17 12:15 03/20/17 14:23 (Vistaril) 25 mg Q6H PRN PO 03/19/17 12:15 (Apresoline) 25 mg TID PO 03/21/17 09:00 03/23/17 13:00 Bumetanide 100 ml @ 8 mls/hr [id number] IV 03/21/17 13:00 03/23/17 05:26 Nicardipine HCl 25 mg/Sodium Chloride 250 ml @ 50 mls/hr TITRATE PRN IV 03/21/17 18:15 03/22/17 17:20 (Imdur) 60 mg DAILY@07 PO 03/22/17 07:00 03/23/17 06:15 Dobutamine HCl 250 mg/Dextrose 250 ml @ 18.67 mls/ hr [id number] PRN IV 03/22/17 22:30 03/22/17 16:43 (Apresoline Inj) 10 mg Q30M PRN IV PUSH 03/22/17 17:30 03/23/17 11:19 (Diuril Inj) 500 mg STAT ONCE IV 03/23/17 17:00 03/23/17 17:01 Milrinone Lactate 20 mg/Sodium Chloride 100 ml @ 3.6 mls/hr Q24H IV 03/23/17 16:31 Family History Diabetes and CAD. Social History does not smoke. rare etoh use. + MJ once a week. Physical Exam Vital Signs Vital Signs Date Time Temp Pulse Resp B/P (MAP) Pulse Ox O2 Delivery O2 Flow Rate FiO2 03/23/17 15:00 78 120/53 (75) 03/23/17 15:00 76 03/23/17 15:00 97.6 78 16 120/53 (75) 97 03/23/17 15:00 95 Nasal Cannula 2.00 03/23/17 11:00 97 Nasal Cannula 2.00 03/23/17 11:00 75 03/23/17 11:00 76 141/64 (89) 03/23/17 11:00 97.9 76 18 141/64 (89) 95 03/23/17 07:00 98.2 72 20 125/62 (83) 97 03/23/17 07:00 72 125/62 (83) 03/23/17 07:00 70 03/23/17 07:00 97 Nasal Cannula 2.00 03/23/17 06:00 71 117/52 (73) 03/23/17 03:00 98.0 71 16 120/54 (76) 97 03/23/17 03:00 70 03/23/17 03:00 97 Nasal Cannula 2.00 03/23/17 03:00 71 120/54 (76) 03/22/17 23:00 71 127/58 (81) 03/22/17 23:00 97.8 71 16 127/58 (81) 99 03/22/17 23:00 71 03/22/17 23:00 99 Nasal Cannula 2.00 03/22/17 22:44 16 03/22/17 22:04 99 Nasal Cannula 2.00 03/22/17 19:00 98.8 70 16 117/51 (73) 98 03/22/17 19:00 98 Nasal Cannula 2.00 03/22/17 19:00 70 117/51 (73) 03/22/17 19:00 69 03/22/17 18:00 70 117/54 (75) 03/22/17 17:20 71 119/53 Physical Exam GENERAL: Well-nourished, well-developed patient. SKIN: Warm and dry. HEAD: Normocephalic. EYES: No scleral icterus. No injection or drainage. NECK: Supple, trachea midline. No JVD or lymphadenopathy. CARDIOVASCULAR: Regular rate and rhythm without murmurs, gallops, or rubs. RESPIRATORY: Breath sounds equal bilaterally. No accessory muscle use. GASTROINTESTINAL: Abdomen soft, non-tender, nondistended. EXTREMITIES: No cyanosis, or edema. NEUROLOGICAL: Awake, alert, and oriented x 3. Non-focal. Laboratory Laboratory Tests Test 03/22/17 17:50 03/23/17 04:10 03/23/17 13:30 Blood Urea Nitrogen 100 104 114 Creatinine 4.04 4.10 4.33 Random Glucose 177 130 158 Calcium Level 7.7 8.0 7.8 Magnesium Level 3.5 3.3 Sodium Level 129 130 128 Potassium Level 4.7 3.8 3.8 Chloride Level 97 96 93 Carbon Dioxide Level 19.4 19.8 19.6 Anion Gap 13 14 15 Estimat Glomerular Filtration Rate 19 18 17 White Blood Count 8.8 Red Blood Count 3.46 Hemoglobin 7.9 Hematocrit 24.8 Mean Corpuscular Volume 71.6 Mean Corpuscular Hemoglobin 22.8 Mean Corpuscular Hemoglobin Concent 31.8 Red Cell Distribution Width 22.4 Platelet Count 216 Mean Platelet Volume 8.7 Prothrombin Time 17.8 Prothromb Time International Ratio 1.6 Activated Partial Thromboplast Time 39.0 B-Type Natriuretic Peptide 2433 Date/Time Source Procedure Growth Status 03/18/17 16:40 Stool Stool Stool Occult Blood ([facility]) - Final HEMOCCULT NEGATIVE Complete Result Diagram: 03/23/17 0410 03/23/17 1330 Imaging Last Impressions Chest X-Ray 03/21/17 0000 Signed Impressions: Service Date/Time: Tuesday, March 21, 2017 17:51 - CONCLUSION: 1. Right IJ central line has been placed and likely represents a pulmonary artery catheter. Distal tip extends into the region of the right interlobar artery. 2. Otherwise , no significant change. There is stable interstitial prominence bilaterally. Caleb Segundo MD Assessment and Plan Problem List: (1) CHF (congestive heart failure) ICD Codes: I50.9 - Heart failure, unspecified Status: Acute Plan: 56 y/o M with acute on chronic systolic heart failure Stage D, NYHA IV symptoms. Doing better reports SOB continues to improve. Urine output > 1L out over last 12h. However, Cr and BUN continue to rise. On Dobutamine and Bumex drip at 2 mg/hr. Cardiorenal syndrome and worsening anemia. Agree that patient will need ischemic evaluation at some point, if none documented in recent years , but given FELECIA risk outweighs benefits at this time. It will be reasonable to consider transfer to [facility] for refractory HF management, higher level of care and heart transplant evaluation. In the meantime continue IV diuresis and Inotropic support. Thank you for the opportunity to participate in the care of this patient (2) Mitral regurgitation ICD Codes: I34.0 - Mitral regurgitation Status: Chronic (3) History of CVA (cerebrovascular accident) ICD Codes: Z86.73 - History of CVA (cerebrovascular accident) Status: Chronic (4) Nonischemic dilated cardiomyopathy ICD Codes: I42.9 - Nonischemic dilated cardiomyopathy Status: Acute (5) CKD (chronic kidney disease) stage 3, GFR 30-59 ml/min ICD Codes: N18.3 - CKD (chronic kidney disease) stage 3, GFR 30-59 ml/min Status: Acute (6) Renal insufficiency ICD Codes: N28.9 - Disorder of kidney and ureter, unspecified (7) A-fib ICD Codes: I48.91 - Unspecified atrial fibrillation (8) Type 2 diabetes mellitus ICD Codes: E11.9 - Type 2 diabetes mellitus without complications (9) Chronic systolic congestive heart failure ICD Codes: I50.22 - Chronic systolic (congestive) heart failure (10) Acute kidney injury superimposed on chronic kidney disease ICD Codes: N17.9 - Acute kidney failure, unspecified; N18.9 - Chronic kidney disease, unspecified (11) S/P implantation of automatic cardioverter/defibrillator (AICD) ICD Codes: Z95.810 - S/P implantation of automatic cardioverter/defibrillator ( AICD) Status: Chronic Problem Qualifiers (1) CHF (congestive heart failure): Qualified Codes: I50.22 - Chronic systolic (congestive) heart failure (2) A-fib: Qualified Codes: I48.0 - Paroxysmal atrial fibrillation Trip Clinton MD Mar 23, 2017 16:46
[2017-03-23] MEDS: MILRINONE INJ 20 MG in SODIUM CHLORIDE 0.9% INJ 80 ML IV SCH (17:32)
--- NOTE | 2017-03-23 20:22 | HHI.NPPN ---
Subjective General Problems: Anemia, Heart Disease Renal Failure: Chronic Interval History patient was seen and examined. Renal function is worse. Good urine output, remains on dobutamine and Bumex drips. Negative fluid balance, however BUN and creatinine are worse. Objective Data Data 03/23/17 03/24/17 19:00 07:00 Intake Total 1187 ml Output Total 2725 ml Balance -1538 ml Intake Oral 780 ml IV Total 407 ml Output Urine Total 2725 ml # Bowel Movements 0 Vital Signs Date Time Temp Pulse Resp B/P (MAP) Pulse Ox O2 Delivery O2 Flow Rate FiO2 03/23/17 19:30 132/58 (82) 03/23/17 19:30 97 Nasal Cannula 2.00 03/23/17 17:32 78 137/57 03/23/17 16:58 97 Nasal Cannula 2.00 03/23/17 15:00 78 120/53 (75) 03/23/17 15:00 76 03/23/17 15:00 97.6 78 16 120/53 (75) 97 03/23/17 15:00 95 Nasal Cannula 2.00 03/23/17 11:00 97 Nasal Cannula 2.00 03/23/17 11:00 75 03/23/17 11:00 76 141/64 (89) 03/23/17 11:00 97.9 76 18 141/64 (89) 95 03/23/17 07:00 98.2 72 20 125/62 (83) 97 03/23/17 07:00 72 125/62 (83) 03/23/17 07:00 70 03/23/17 07:00 97 Nasal Cannula 2.00 03/23/17 06:00 71 117/52 (73) 03/23/17 03:00 98.0 71 16 120/54 (76) 97 03/23/17 03:00 70 03/23/17 03:00 97 Nasal Cannula 2.00 03/23/17 03:00 71 120/54 (76) 03/22/17 23:00 71 127/58 (81) 03/22/17 23:00 97.8 71 16 127/58 (81) 99 03/22/17 23:00 71 03/22/17 23:00 99 Nasal Cannula 2.00 03/22/17 22:44 16 03/22/17 22:04 99 Nasal Cannula 2.00 -: 03/23/17 0410 03/23/17 1330 Tubes & Lines: Barrett Drip Comment Dobutamine, nicardipine, bumex Physical Exam General Appearance: Well Developed, Well Nourished, Comfortable, Malnourished Eyes Eye Exam: Pupils Equal Neck Neck Exam: Neck Supple Pulmonary Resp Exam: Breath Sounds Equal, No Distress, Decreased Bases, Diminished Breath Sounds Cardiology CV Exam: Good Perfusion, Irregular, Murmur Gastrointestinal/Abdomen GI Exam: Soft, Non-Tender, Bowel Sounds Present Genitourinary Exam: Clear Urine Musculoskeletal MS Exam: Joints Intact, Good Strength, Atrophy Integumentary Skin Exam: Clear, Warm, Dry, Intact Extremeties Extremities Exam: No Edema, Pedal Pulses Palpable Neurologic Neuro Exam: Alert, Awake, Oriented, Speech Clear, Moving All Extremities Psychiatric Psych Exam: Appropriate Responses VTE Prophylaxis Device: SCDs Assessment/Plan Discussed Condition With: Patient Assessment Summary: Fluid/Volume Overload, CHF, CKD Stage III, CKD Stage IV Problem List: (1) Acute kidney injury superimposed on chronic kidney disease ICD Codes: N17.9 - Acute kidney failure, unspecified; N18.9 - Chronic kidney disease, unspecified Plan: He has underlying stage III to IV CKD, may have nephrosclerosis. FELECIA likely from decompensated CHF with increased renal venous pressure. Possible cardiorenal syndrome. On Dobutamine and bumex infusions Good diuresis, BUN and creatinine are worse. Hesitant to initiate dialysis in this end of life situation: it is unclear if he is a candidate for LVAD or heart transplant. Recommend transfer to tertiary care facility where he can also be evaluated by nephrology and started on dialysis if considered appropriate. Not a candidate for outpatient dialysis. (2) Chronic systolic congestive heart failure ICD Codes: I50.22 - Chronic systolic (congestive) heart failure Plan: [place] Chiqui placed, see measurements Continue diuresis Cardiology following; second opinion requested Consider palliative consult. He is on dobutamine gtt (3) Atrial fibrillation ICD Codes: I48.91 - Unspecified atrial fibrillation Plan: Rate controlled On Xarelto (4) Type 2 diabetes mellitus ICD Codes: E11.9 - Type 2 diabetes mellitus without complications Plan: Avoid Metformin. Insulin coverage, maintain blood glucose between 140 and 180 while hospitalized. Doc Salazar MD Mar 23, 2017 20:22
[2017-03-23] MEDS: EZETIMIBE 10 MG TAB PO SCH (21:30)
[2017-03-24] VITALS (11 sets, daily range): BP systolic 14–147; BP diastolic 46–72; PULSE 78–97; RESP 16–22; TEMP 97.5–99.7; O2SAT 97–100
[2017-03-24 06:09] LABS: HEMATOCRIT 24.5 % (39.0-51.0); MEAN CELL VOLUME 71.3 FL (80.0-100.0); MEAN CORPUSCULAR HEMOGLOBIN 23.1 PG (27.0-34.0); MEAN CORPUSCULAR HGB CONC 32.3 % (32.0-36.0); PLATELET COUNT 211 TH/MM3 (150-450); RED BLOOD COUNT 3.44 MIL/MM3 (4.50-5.90); RED CELL DISTRIBUTION WIDTH 22.8 % (11.6-17.2); REVIEW FLAG FINAL; WHITE BLOOD COUNT 8.6 TH/MM3 (4.0-11.0)
[2017-03-24 06:20] LABS: APTT (PATIENT) 41.5 SEC (24.3-30.1); INTERNATIONAL NORMALIZED RATIO 1.4 RATIO
[2017-03-24] MEDS: ISOSORBIDE MONONITRATE 60 MG TAB PO SCH (06:33)
[2017-03-24 06:38] LABS: BICARBONATE 23.2 MEQ/L (21.0-32.0); MAGNESIUM 3.2 MG/DL (1.5-2.5)
[2017-03-24 06:41] LABS: POTASSIUM 2.9 MEQ/L (3.5-5.1)
[2017-03-24] MEDS ORDERED: POTASSIUM CHLOR 20 MEQ PREMIX 100 ML ONE (06:44)
[2017-03-24] MEDS ORDERED: ALBUMIN 25% INJ 100 ML IV ONE (06:45)
[2017-03-24] MEDS ORDERED: CHLOROTHIAZIDE SOD 500 MG VIAL IV ONE (06:45)
[2017-03-24] MEDS ORDERED: POTASSIUM CHLOR 40 MEQ PREMIX 100 ML IV ONE (06:45)
[2017-03-24] MEDS ORDERED: POTASSIUM CHLORIDE 25 MEQ EFFERVESCENT TAB PO ONE (06:45)
[2017-03-24] MEDS: INSULIN ASPART SUPPLEMENTAL SCALE SQ SCH ×4 (08:00→21:00)
[2017-03-24] MEDS: hydrALAZINE HCL 25 MG TAB PO SCH ×3 (08:10→18:00)
[2017-03-24] MEDS: ASPIRIN EC 81 MG TABEC PO SCH (08:10)
[2017-03-24] MEDS: AMIODARONE 200 MG TAB PO SCH (08:11)
[2017-03-24] MEDS: FERROUS SULFATE 325 MG (65 MG ELEMENTAL IRON) TAB PO SCH (08:11)
[2017-03-24] MEDS: RIVAROXABAN 15 MG TAB PO SCH (08:11)
[2017-03-24] MEDS: BUMETANIDE INJ 100 ML IV SCH ×3 (08:12→21:48)
[2017-03-24] MEDS: CHOLECALCIFEROL (VIT D3) 5000 UNIT CAP PO SCH (08:12)
[2017-03-24] MEDS: SODIUM CHLORIDE 0.9% FLUSH 10 ML FLUSH IV FLUSH SCH ×3 (08:17→21:46)
--- NOTE | 2017-03-24 08:25 | HHI.CCPN ---
Subjective Remarks/Hospital Course Hospital Course: This is a 56yM who carries a documented history of ischemic cardiomyopathy with a known EF < 20%. He has a single-ventricle AICD. He presented on 03/16 with complaints of worsening shortness of breath and MUIR which progressed to dyspnea at rest over the time course of about a month. He denies chest pain. He states that he has never had a heart attack in the past, and per our records, the last left heart catheterization was in 2006 which showed only mild disease. On admission, he had a BNP of 3300, trop 0.05, Cr 2.6 up from a baseline around 1.7 per our last records. Nephrology and cardiology were consulted. Diuresis was attempted, but despite aggressive forced diuresis, he has gained 1 kg weight since admission. An echo from 03/18 demonstrated severely reduced LV function, severe Mitral regurgitation, severe tricuspid regurgitation, pulmonary hypertension. Despite therapy, he continues to worsen and his Cr today is up to 3.8. Critical care medicine has been consulted to evaluate and manage his worsening end-organ failure. Of note, the nursing staff paged Dr. Eaton, and he stated he would be delayed until tonight in evaluating the patient , and the patient and his have requested a second opinion in his ongoing management and worsening organ dysfunction. Subjective: 03/22: feels subjectively much better. after midnight, uop increased to 100-300/ hr. Barrett placed for more accurate i/o's. patient denies SOB this AM. Cardene at 10 mg/hr. Dobutamine lowered from 7.5 mcg/kg/min to 5 mcg/kg/min overnight for hypertension concerns. Cr plateaued. RHC numbers at 06:30: HR 72. Art 119/43 (63). CVP 17. PAP 48/18 (29). PCWP 24. CO/CI 5.8/3.2. SVO2 67%. SVR 634. PVR 0.86 Howard. 03/23: continues to feel better subjectively. SOB continues to improve. uop improving with > 1L out over last 12h. However, Cr and BUN continue to rise. still requires intermittent iv hydralazine for goal sbp < 120, but off cardene now. still on bumex drip at 2 mg/hr. BNP also lower for the first time today, and weight continues to improve, although slowly. RHC numbers at 06:20: HR 72. Art 117/52 (77). CVP 20. PAP 52/16 (30). PCWP 20. CO/CI: 5.4/3. SVR 845. PVR 1.8 Howard. 03/24: added milrinone at 0.2 mcg/kg/min yesterday afternoon. overnight excellent diuresis and started significant volume removal. net -4L/24h and filling pressures starting to improve significantly. PCWP still 22, but CVP improved to 5 and RV function significantly better as evidenced by rising PAS and decreasing PAD. was 30s/20s, now 50s/10s. First sign of possible renal recovery and Cr plateaued and possibly early downtrending. Contacted [facility] and they have no records of ever seeing or evaluating patient in any [facility]. Further talked to the patient and and they have never seen any national account director outside of the [place] area for any additional work-up. RHC numbers at 06:10: HR 85. Art 122/58 (84). CVP 5. PAP 48/12 (30). PCWP 22. CO /CI 5.2/29. SVR 1215. PVR 1.5 Howard Objective Vital Signs Date Time Temp Pulse Resp B/P (MAP) Pulse Ox O2 Delivery O2 Flow Rate FiO2 03/24/17 05:00 85 140/46 (77) 03/24/17 04:00 99.7 20 97 03/24/17 04:00 Nasal Cannula 2.00 Intake and Output 03/24/17 03/24/17 03/25/17 08:00 16:00 00:00 Intake Total 1230 ml Output Total 4050 ml Balance -2820 ml Result Diagram: 03/24/17 0515 03/24/17 0515 Imaging Last Impressions Chest X-Ray 03/18/17 0000 Signed Impressions: Service Date/Time: Saturday, March 18, 2017 14:58 - CONCLUSION: 1. Cardiomegaly with prominence and indistinctness of the interstitial markings characteristic of some degree of vascular congestion/CHF. 2. No confluent infiltrate or effusion. Reynold Case MD Objective Remarks gen: middle-aged male, lying in bed. not tachypneic this morning. heent: perrl. nc. at. mucous membranes moist. neck: + jvd to the mid-neck. trachea midline. right IJ cordis and swan c/d/i. chest: normal respiratory rate. on nc o2 2L. cv: normal rate, irregularly irregular rhythm. afib by tele. intermittently paced. abd: soft, nontender, nondistended. no guarding extr: 1+ pitting edema. distal pulses 2+. warm and well-perfused. neuro: RASS 0. GCS 15. follows commands. Procedures none A/P Assessment and Plan Assessment: 56yM with history of severe cardiomyopathy presents with decompensated congestive heart failure with worsening end-organ damage and cardiogenic shock. First signs of significant clinical improvement. Cr plateaued and possibly downtrending. RV function clinically appears improving based on swan numbers, and likely milrinone has had significant improvements. Need to continue forced diuresis with careful electrolyte replacement now that filtration improving. Continue forced diuresis, as clinically remains very volume overloaded. Continue inotropic therapy and careful monitoring. Would not want to allow him to become intravascularly deplete, as this may risk further kidney injury. will start with concentrated albumin to help maintain intravascular volume. very complex with high risk of further decompensation. Without any prior work-up for VAD/Transplant or even BiV AICD resynchronization therapy, not yet a palliative discussion, and there are likely other options to improve cardiac function. Active Problems: Cardiogenic Shock - improving. Severe mitral regurgitation Severe cardiomyopathy, unknown etiology: ischemic vs. nonischemic Severe acute congestive heart failure exacerbation, likely combination of systolic and valvulopathy Cor pulmonale Pulmonary Edema Acute hypoxemia - slight improvement. Acute Severe hypokalemia Acute kidney injury on Chronic Kidney Disease Stage III - plateaued. Respiratory Distress - improved Plan: remain in ICU. keep swan again today. do not want to over-diurese and need to guide therapy based on filling pressures. continue dobutamine at 5 mcg/kg/min. continue milrinone at 0.2 mcg/kg/min. trend cardiac output. keep bumex drip at 2mg/hr diuril 500mg iv x 1 with diamox 500mg iv x 1 (early contraction alkalosis) Albumin 25% 100mL iv x 1. Aggressive K, Mg replacement serial BMP 1L fluid restriction keep Barrett today for accurate hourly i/o's. prn hydralazine and cardene for goal sbp < 120. will need LHC to rule out ischemia, but will hold for now given severe kidney injury. daily CMP, coags with regards to his mitral valve: likely functional from severe LV cavity dilation. will repeat echo once patient is back to dry weight and compare amount of MR. would not consider operative candidate unless severe MR persists once medically optimized. R IJ Cordis with PAC: 03/21. must remain today while active hemodynamic management. Kojo Hernández MD Mar 24, 2017 08:25
[2017-03-24] MEDS ORDERED: POTASSIUM CHLOR 20 MEQ PREMIX 100 ML IV ONE (08:45)
[2017-03-24] MEDS: TAMSULOSIN HCL 0.4 MG CAP PO SCH (09:39)
[2017-03-24] MEDS: PREGABALIN 25 MG CAP PO SCH ×2 (09:39→21:46)
--- NOTE | 2017-03-24 09:55 | HHI.NPPN ---
Subjective General Problems: Anemia, Heart Disease Renal Failure: Chronic Interval History His renal function is improving. He is being aggressively diuresed, over 6 liters urine output. Possible transfer. He is now on milrinone in addition to bumex and dobutamine. (Alfreda Hernandez) Objective Data Data Vital Signs Date Time Temp Pulse Resp B/P (MAP) Pulse Ox O2 Delivery O2 Flow Rate FiO2 03/24/17 05:00 85 140/46 (77) 03/24/17 04:20 86 03/24/17 04:00 99.7 86 20 14/46 (35) 97 03/24/17 04:00 98 Nasal Cannula 2.00 03/24/17 00:00 99.5 79 22 147/67 (93) 97 03/23/17 23:45 86 03/23/17 23:30 81 124/51 (75) 03/23/17 23:30 97 Nasal Cannula 2.00 03/23/17 22:46 98 Nasal Cannula 2.00 03/23/17 21:00 97 Nasal Cannula 2.00 03/23/17 20:00 99.6 77 24 130/54 (79) 97 03/23/17 19:56 76 03/23/17 19:30 77 132/58 (82) 03/23/17 19:30 97 Nasal Cannula 2.00 03/23/17 17:32 78 137/57 03/23/17 16:58 97 Nasal Cannula 2.00 03/23/17 15:00 78 120/53 (75) 03/23/17 15:00 76 03/23/17 15:00 97.6 78 16 120/53 (75) 97 03/23/17 15:00 95 Nasal Cannula 2.00 03/23/17 11:00 97 Nasal Cannula 2.00 03/23/17 11:00 75 03/23/17 11:00 76 141/64 (89) 03/23/17 11:00 97.9 76 18 141/64 (89) 95 (Alfreda Hernandez) -: 03/24/17 0515 03/24/17 0515 Tubes & Lines: Barrett Drip Comment Dobutamine, milrinone, bumex (Alfreda Hernandez) Physical Exam General Appearance: Well Developed, Well Nourished, Comfortable, Malnourished (Alfreda Hernandez. SALES PROJECT ENGINEER) Eyes Eye Exam: Pupils Equal (Alfreda Hernandez SALES PROJECT ENGINEER) Neck Neck Exam: Neck Supple (Alfreda Hernandez SALES PROJECT ENGINEER) Pulmonary Resp Exam: Breath Sounds Equal, No Distress, Decreased Bases, Diminished Breath Sounds (Alfreda Hernandez. SALES PROJECT ENGINEER) Cardiology CV Exam: Good Perfusion, Irregular, Murmur CV Remarks AICD left chest (Alfreda Hernandez SALES PROJECT ENGINEER) Gastrointestinal/Abdomen GI Exam: Soft, Non-Tender, Bowel Sounds Present (Alfreda Hernandez. SALES PROJECT ENGINEER) Genitourinary Exam: Clear Urine (Alfreda Hernandez SALES PROJECT ENGINEER) Musculoskeletal MS Exam: Joints Intact, Good Strength, Atrophy (Alfreda Hernandez. SALES PROJECT ENGINEER) Integumentary Skin Exam: Clear, Warm, Dry, Intact (Alfreda Hernandez SALES PROJECT ENGINEER) Extremeties Extremities Exam: No Edema, Pedal Pulses Palpable (Alfreda Hernandez SALES PROJECT ENGINEER) Neurologic Neuro Exam: Alert, Awake, Oriented, Speech Clear, Moving All Extremities (Alfreda Hernandez. SALES PROJECT ENGINEER) Psychiatric Psych Exam: Appropriate Responses (Alfreda Hernandez) VTE Prophylaxis Device: SCDs (Alfreda Hernandez) Assessment/Plan Discussed Condition With: Patient Assessment Summary: Fluid/Volume Overload, CHF, CKD Stage III, CKD Stage IV Problem List: (1) Acute kidney injury superimposed on chronic kidney disease ICD Codes: N17.9 - Acute kidney failure, unspecified; N18.9 - Chronic kidney disease, unspecified Plan: He has underlying stage III to IV CKD, may have nephrosclerosis. Recent decline in renal function likely from decompensated CHF with increased renal venous pressure, cardiorenal syndrome. On Dobutamine and bumex infusions Good diuresis, BUN and creatinine are slightly better Hesitant to initiate dialysis in this end of life situation: it is unclear if he is a candidate for LVAD or heart transplant. Possible transfer to tertiary care facility as recommended by registered nurse cardiovascular icu. Not a candidate for outpatient dialysis. Monitor renal function closely Avoid nephrotoxic agents. (2) Chronic systolic congestive heart failure ICD Codes: I50.22 - Chronic systolic (congestive) heart failure Plan: [place] Chiqui placed, see measurements Continue diuresis Cardiology following; second opinion noted Consider palliative consult. He is on dobutamine gtt; milrinone added. Diureses with Bumex, Diuril and Diamox. (3) Atrial fibrillation ICD Codes: I48.91 - Unspecified atrial fibrillation Plan: Rate controlled On Xarelto (4) Type 2 diabetes mellitus ICD Codes: E11.9 - Type 2 diabetes mellitus without complications Plan: Avoid Metformin. Insulin coverage, maintain blood glucose between 140 and 180 while hospitalized. (Alfreda Hernandez) Problem List: (1) Acute kidney injury superimposed on chronic kidney disease ICD Codes: N17.9 - Acute kidney failure, unspecified; N18.9 - Chronic kidney disease, unspecified Plan: He has underlying stage III to IV CKD, may have nephrosclerosis. Recent decline in renal function likely from decompensated CHF with increased renal venous pressure, cardiorenal syndrome. On Dobutamine and bumex infusions Good diuresis, BUN and creatinine are slightly better Hesitant to initiate dialysis in this end of life situation: it is unclear if he is a candidate for LVAD or heart transplant. Possible transfer to tertiary care facility as recommended by registered nurse cardiovascular icu. Not a candidate for outpatient dialysis. Monitor renal function closely Avoid nephrotoxic agents. (2) Chronic systolic congestive heart failure ICD Codes: I50.22 - Chronic systolic (congestive) heart failure Plan: [place] Chiqui placed, see measurements Continue diuresis Cardiology following; second opinion noted Consider palliative consult. He is on dobutamine gtt; milrinone added. Diureses with Bumex, Diuril and Diamox. (3) Atrial fibrillation ICD Codes: I48.91 - Unspecified atrial fibrillation Plan: Rate controlled On Xarelto (4) Type 2 diabetes mellitus ICD Codes: E11.9 - Type 2 diabetes mellitus without complications Plan: Avoid Metformin. Insulin coverage, maintain blood glucose between 140 and 180 while hospitalized. Plan patient was seen and examined. Agree with above assessment and plan. (Doc Salazar MD) Alfreda Hernandez Mar 24, 2017 09:54 Doc Salazar MD Mar 24, 2017 14:41
[2017-03-24] MEDS: MAGNESIUM OXIDE 400 MG TAB PO SCH (11:00)
[2017-03-24 13:05] LABS: BICARBONATE 23.2 MEQ/L (21.0-32.0); MAGNESIUM 3.3 MG/DL (1.5-2.5); POTASSIUM 3.9 MEQ/L (3.5-5.1)
[2017-03-24] MEDS: MILRINONE INJ 20 MG in SODIUM CHLORIDE 0.9% INJ 80 ML IV SCH (16:12)
[2017-03-24] MEDS: EZETIMIBE 10 MG TAB PO SCH (21:46)
[2017-03-24] MEDS: hydrALAZINE HCL 20 MG/ML VIAL IV PUSH PRN (21:47)
[2017-03-25 03:00] VITALS: BP 124/62; PULSE 87; PULSE 90; PULSE 92; RESP 18; TEMP 98.6; O2SAT 98
[2017-03-25 04:58] LABS: HEMATOCRIT 29.8 % (39.0-51.0); MEAN CORPUSCULAR HEMOGLOBIN 22.4 PG (27.0-34.0); MEAN CORPUSCULAR HGB CONC 31.6 % (32.0-36.0); PLATELET COUNT 248 TH/MM3 (150-450); RED CELL DISTRIBUTION WIDTH 22.5 % (11.6-17.2); REVIEW FLAG FINAL; WHITE BLOOD COUNT 9.8 TH/MM3 (4.0-11.0)
[2017-03-25 05:02] LABS: APTT (PATIENT) 39.5 SEC (24.3-30.1); INTERNATIONAL NORMALIZED RATIO 1.4 RATIO; PROTHROMBIN TIME - PATIENT 15.3 SEC (9.8-11.6)
[2017-03-25 05:18] LABS: BICARBONATE 26.1 MEQ/L (21.0-32.0); MAGNESIUM 3.3 MG/DL (1.5-2.5); POTASSIUM 3.2 MEQ/L (3.5-5.1)
[2017-03-25 07:00] VITALS: BP 126/55; PULSE 90; PULSE 91; RESP 18; TEMP 98; O2SAT 95
[2017-03-25] MEDS: ISOSORBIDE MONONITRATE 60 MG TAB PO SCH (07:00)
--- NOTE | 2017-03-25 07:08 | HHI.CCPN ---
Subjective Remarks/Hospital Course Hospital Course: This is a 56yM who carries a documented history of ischemic cardiomyopathy with a known EF < 20%. He has a single-ventricle AICD. He presented on 03/16 with complaints of worsening shortness of breath and MUIR which progressed to dyspnea at rest over the time course of about a month. He denies chest pain. He states that he has never had a heart attack in the past, and per our records, the last left heart catheterization was in 2006 which showed only mild disease. On admission, he had a BNP of 3300, trop 0.05, Cr 2.6 up from a baseline around 1.7 per our last records. Nephrology and cardiology were consulted. Diuresis was attempted, but despite aggressive forced diuresis, he has gained 1 kg weight since admission. An echo from 03/18 demonstrated severely reduced LV function, severe Mitral regurgitation, severe tricuspid regurgitation, pulmonary hypertension. Despite therapy, he continues to worsen and his Cr today is up to 3.8. Critical care medicine has been consulted to evaluate and manage his worsening end-organ failure. Of note, the nursing staff paged Dr. Eaton, and he stated he would be delayed until tonight in evaluating the patient , and the patient and his have requested a second opinion in his ongoing management and worsening organ dysfunction. Subjective: 03/22: feels subjectively much better. after midnight, uop increased to 100-300/ hr. Barrett placed for more accurate i/o's. patient denies SOB this AM. Cardene at 10 mg/hr. Dobutamine lowered from 7.5 mcg/kg/min to 5 mcg/kg/min overnight for hypertension concerns. Cr plateaued. RHC numbers at 06:30: HR 72. Art 119/43 (63). CVP 17. PAP 48/18 (29). PCWP 24. CO/CI 5.8/3.2. SVO2 67%. SVR 634. PVR 0.86 Howard. 03/23: continues to feel better subjectively. SOB continues to improve. uop improving with > 1L out over last 12h. However, Cr and BUN continue to rise. still requires intermittent iv hydralazine for goal sbp < 120, but off cardene now. still on bumex drip at 2 mg/hr. BNP also lower for the first time today, and weight continues to improve, although slowly. RHC numbers at 06:20: HR 72. Art 117/52 (77). CVP 20. PAP 52/16 (30). PCWP 20. CO/CI: 5.4/3. SVR 845. PVR 1.8 Howard. 03/24: added milrinone at 0.2 mcg/kg/min yesterday afternoon. overnight excellent diuresis and started significant volume removal. net -4L/24h and filling pressures starting to improve significantly. PCWP still 22, but CVP improved to 5 and RV function significantly better as evidenced by rising PAS and decreasing PAD. was 30s/20s, now 50s/10s. First sign of possible renal recovery and Cr plateaued and possibly early downtrending. Contacted [facility] and they have no records of ever seeing or evaluating patient in any [facility]. Further talked to the patient and and they have never seen any cemetery warden outside of the [place] area for any additional work-up. RHC numbers at 06:10: HR 85. Art 122/58 (84). CVP 5. PAP 48/12 (30). PCWP 22. CO /CI 5.2/29. SVR 1215. PVR 1.5 Howard 03/25: Hgb concentrating, bun 105, tachycardia rising. PCWP 14 and PA waveform flattening. Will back off on bumex to 1 mg/hr. Continue small amounts of albumin. Keep K > 4.2, Mag > 2.0. Objective Vital Signs Date Time Temp Pulse Resp B/P (MAP) Pulse Ox O2 Delivery O2 Flow Rate FiO2 03/25/17 03:00 98.6 92 18 124/62 (82) 98 03/25/17 03:00 Nasal Cannula 2.00 Intake and Output 03/25/17 03/25/17 03/26/17 08:00 16:00 00:00 Intake Total 387 ml Output Total 2650 ml Balance -2263 ml Result Diagram: 03/25/17 0400 03/25/17 0400 Imaging Last Impressions Chest X-Ray 03/18/17 0000 Signed Impressions: Service Date/Time: Saturday, March 18, 2017 14:58 - CONCLUSION: 1. Cardiomegaly with prominence and indistinctness of the interstitial markings characteristic of some degree of vascular congestion/CHF. 2. No confluent infiltrate or effusion. Reynold Case MD Objective Remarks gen: middle-aged male, lying in bed. breathing comfortably. heent: perrl. nc. at. mucous membranes moist. neck: + jvd to the mid-neck. . right IJ cordis and swan c/d/i. chest: normal respiratory rate. on nc o2 2L. cv: normal rate, irregularly irregular rhythm. afib by tele. intermittently paced. abd: soft, nontender, nondistended. no guarding extr: 1+ pitting edema. distal pulses 2+. warm and well-perfused. neuro: RASS 0. GCS 15. follows commands. Procedures none A/P Assessment and Plan Assessment: 56yM with history of severe cardiomyopathy presents with decompensated congestive heart failure with worsening end-organ damage and cardiogenic shock. First signs of significant clinical improvement. Cr plateaued and possibly downtrending. RV function clinically appears improving based on swan numbers, and likely milrinone has had significant improvements. Need to continue forced diuresis with careful electrolyte replacement now that filtration improving. Continue forced diuresis, as clinically remains very volume overloaded. Continue inotropic therapy and careful monitoring. Would not want to allow him to become intravascularly deplete, as this may risk further kidney injury. will start with concentrated albumin to help maintain intravascular volume. very complex with high risk of further decompensation. Without any prior work-up for VAD/Transplant or even BiV AICD resynchronization therapy, not yet a palliative discussion, and there are likely other options to improve cardiac function. Active Problems: Cardiogenic Shock - improving. Severe mitral regurgitation Severe cardiomyopathy, unknown etiology: ischemic vs. nonischemic Severe acute congestive heart failure exacerbation, likely combination of systolic and valvulopathy Cor pulmonale Pulmonary Edema Acute hypoxemia - slight improvement. Acute Severe hypokalemia Acute kidney injury on Chronic Kidney Disease Stage III - plateaued. Respiratory Distress - improved Plan: remain in ICU. keep swan again today. do not want to over-diurese and need to guide therapy based on filling pressures. continue dobutamine at 5 mcg/kg/min. continue milrinone at 0.2 mcg/kg/min. trend cardiac output. keep bumex drip at 2mg/hr diuril 500mg iv x 1 with diamox 500mg iv x 1 (early contraction alkalosis) Albumin 25% Aggressive K, Mg replacement serial BMP 1L fluid restriction keep Barrett today for accurate hourly i/o's. prn hydralazine and cardene for goal sbp < 120. will need LHC to rule out ischemia, but will hold for now given severe kidney injury. daily CMP, coags with regards to his mitral valve: likely functional from severe LV cavity dilation. will repeat echo once patient is back to dry weight and compare amount of MR. would not consider operative candidate unless severe MR persists once medically optimized. R IJ Cordis with PAC: 03/21. must remain today while active hemodynamic management. Overall: Diuresing well. Back off slightly while azotemia pattern persists. Replace lytes. Carlos Dos Santos MD Mar 25, 2017 07:08
[2017-03-25 07:10] VITALS: O2SAT 99
[2017-03-25] MEDS ORDERED: DOBUTamine INJ 250 MG in DEXTROSE 5% IN WATER INJ 230 ML IV PRN ×4 (07:45→22:30)
[2017-03-25] MEDS ORDERED: ALBUMIN 25% INJ 100 ML IV ONE (08:00)
[2017-03-25] MEDS ORDERED: POTASSIUM CHLOR 20 MEQ PREMIX 200 ML ONE (08:12)
[2017-03-25] MEDS: INSULIN ASPART SUPPLEMENTAL SCALE SQ SCH ×4 (08:18→21:00)
[2017-03-25] MEDS: BUMETANIDE INJ 100 ML IV SCH (08:19)
[2017-03-25 08:31] LABS: BLOOD GAS BASE EXCESS 2.9 mmol/L (-2-2); BLOOD GAS CARBOXYHEMOGLOBIN 1.1 % (0-4); BLOOD GAS HCO3 26 mmol/L (22-26); BLOOD GAS METHEMOGLOBIN 0.9 % (0-2); BLOOD GAS O2 HGB SATURATION 94 % (90-100); BLOOD GAS OXYGEN CONTENT 13.6 Vol % (12.0-20.0); BLOOD GAS PCO2 31 mmHg (38-42); BLOOD GAS PO2 88 mmHg (61-120); BLOOD GAS TOTAL HGB 10.2 G/DL (12.0-16.0); CRITICAL VALUE YES; OXYGEN DEVICE NASAL CANNULA; TEMP CORR TO 98.6
[2017-03-25 08:32] LABS: DRAW SITE RT RADIAL; LITER FLOW 2 L/M; NUMBER OF ARTERIAL PUNCTURES 1; STAT NO; ULNAR PULSE PRESENT
[2017-03-25] MEDS: SODIUM CHLORIDE 0.9% FLUSH 10 ML FLUSH IV FLUSH SCH ×3 (08:42→21:00)
[2017-03-25] MEDS: FERROUS SULFATE 325 MG (65 MG ELEMENTAL IRON) TAB PO SCH (08:43)
[2017-03-25] MEDS: TAMSULOSIN HCL 0.4 MG CAP PO SCH (08:43)
[2017-03-25] MEDS: CHOLECALCIFEROL (VIT D3) 5000 UNIT CAP PO SCH (08:43)
[2017-03-25] MEDS: hydrALAZINE HCL 25 MG TAB PO SCH ×3 (08:44→17:36)
[2017-03-25] MEDS: AMIODARONE 200 MG TAB PO SCH (08:44)
[2017-03-25] MEDS: RIVAROXABAN 15 MG TAB PO SCH (08:44)
[2017-03-25] MEDS: PREGABALIN 25 MG CAP PO SCH ×2 (08:44→21:00)
[2017-03-25] MEDS: ASPIRIN EC 81 MG TABEC PO SCH (08:46)
[2017-03-25] MEDS: POTASSIUM CHLOR 20 MEQ PREMIX 100 ML IV SCH ×2 (10:13→11:47)
[2017-03-25 11:00] VITALS: BP 105/47; PULSE 88; PULSE 90; RESP 18; TEMP 98; O2SAT 96
[2017-03-25] MEDS: MAGNESIUM OXIDE 400 MG TAB PO SCH (11:46)
--- NOTE | 2017-03-25 11:50 | HHI.NPPN ---
Subjective General Problems: Anemia, Heart Disease Renal Failure: Chronic Additional Remarks No acute complaints, resting in bed Objective Data Data 03/25/17 03/26/17 19:00 07:00 Intake Total 100 ml Balance 100 ml IV Total 100 ml Vital Signs Date Time Temp Pulse Resp B/P (MAP) Pulse Ox O2 Delivery O2 Flow Rate FiO2 03/25/17 11:00 96 Nasal Cannula 2.00 03/25/17 11:00 90 03/25/17 11:00 90 105/47 (66) 03/25/17 11:00 98.0 88 18 105/47 (66) 96 03/25/17 07:10 99 Nasal Cannula 2.00 03/25/17 07:00 95 Nasal Cannula 2.00 03/25/17 07:00 90 03/25/17 07:00 91 126/55 (78) 03/25/17 07:00 98.0 91 18 126/55 (78) 95 03/25/17 03:00 98.6 92 18 124/62 (82) 98 03/25/17 03:00 87 124/62 (82) 03/25/17 03:00 100 Nasal Cannula 2.00 03/25/17 03:00 90 03/24/17 23:00 97 03/24/17 23:00 87 125/56 (79) 03/24/17 23:00 97.5 90 18 125/56 (79) 100 03/24/17 23:00 100 Nasal Cannula 2.00 03/24/17 22:35 18 03/24/17 22:30 98 Nasal Cannula 2.00 03/24/17 19:00 98.2 78 20 147/72 (97) 100 03/24/17 19:00 82 03/24/17 19:00 87 147/72 (97) 03/24/17 19:00 100 Nasal Cannula 2.00 03/24/17 18:13 16 03/24/17 16:12 84 140/56 03/24/17 15:00 83 122/55 (77) 03/24/17 15:00 83 03/24/17 15:00 98.3 83 18 122/55 (77) 97 03/24/17 15:00 97 Nasal Cannula 2.00 -: 03/25/17 0400 03/25/17 0400 Tubes & Lines: Barrett Drip Comment Dobutamine, milrinone, bumex Physical Exam General Appearance: Well Developed, Well Nourished, Comfortable, Malnourished Eyes Eye Exam: Pupils Equal Neck Neck Exam: Neck Supple Pulmonary Resp Exam: Breath Sounds Equal, No Distress, Decreased Bases, Diminished Breath Sounds Cardiology CV Exam: Good Perfusion, Irregular, Murmur Gastrointestinal/Abdomen GI Exam: Soft, Non-Tender, Bowel Sounds Present Genitourinary Exam: Clear Urine Musculoskeletal MS Exam: Joints Intact, Good Strength, Atrophy Integumentary Skin Exam: Clear, Warm, Dry, Intact Extremeties Extremities Exam: No Edema, Pedal Pulses Palpable Neurologic Neuro Exam: Alert, Awake, Oriented, Speech Clear, Moving All Extremities Psychiatric Psych Exam: Appropriate Responses VTE Prophylaxis Device: SCDs Assessment/Plan Discussed Condition With: Patient Assessment Summary: Fluid/Volume Overload, CHF, CKD Stage III, CKD Stage IV Problem List: (1) Acute kidney injury superimposed on chronic kidney disease ICD Codes: N17.9 - Acute kidney failure, unspecified; N18.9 - Chronic kidney disease, unspecified Plan: He has underlying stage III to IV CKD, may have nephrosclerosis. Recent decline in renal function likely from decompensated CHF with increased renal venous pressure, cardiorenal syndrome. On Dobutamine and bumex infusions - bumex drip decreased to 1mg / hour today. Good diuresis, BUN and creatinine are slightly better Hesitant to initiate dialysis in this end of life situation: it is unclear if he is a candidate for LVAD or heart transplant. Possible transfer to tertiary care facility as recommended by legal writing professor. Not a candidate for outpatient dialysis. Monitor renal function closely - no need for HD at this point, with stable creatinine today. Avoid nephrotoxic agents. On standing magnesium supplementation - will hold, follow levels (2) Chronic systolic congestive heart failure ICD Codes: I50.22 - Chronic systolic (congestive) heart failure Plan: Sarepta Chiqui placed, see measurements Continue diuresis Cardiology following; second opinion noted Consider palliative consult. He is on dobutamine gtt; milrinone added. Diureses with Bumex, Diuril and Diamox. (3) Atrial fibrillation ICD Codes: I48.91 - Unspecified atrial fibrillation Plan: Rate controlled On Xarelto (4) Type 2 diabetes mellitus ICD Codes: E11.9 - Type 2 diabetes mellitus without complications Plan: Avoid Metformin. Insulin coverage, maintain blood glucose between 140 and 180 while hospitalized. Diego Magaña MD Mar 25, 2017 11:50
[2017-03-25 15:00] VITALS: BP 94/46; PULSE 91; RESP 18; TEMP 98.5; O2SAT 97
[2017-03-25] MEDS: MILRINONE INJ 20 MG in SODIUM CHLORIDE 0.9% INJ 80 ML IV SCH (16:20)
[2017-03-25 20:00] VITALS: BP 107/54; PULSE 91; RESP 18; TEMP 98.7; O2SAT 99
[2017-03-25] MEDS: EZETIMIBE 10 MG TAB PO SCH (21:00)
[2017-03-26] VITALS (7 sets, daily range): BP systolic 101–113; BP diastolic 51–57; PULSE 81–92; RESP 15–20; TEMP 97.4–98.8; O2SAT 96–100
[2017-03-26] MEDS ORDERED: DOBUTamine PREMIX DRIP 250 ML IV SCH (00:45)
[2017-03-26] MEDS ORDERED: DOBUTamine INJ 250 MG in DEXTROSE 5% IN WATER INJ 230 ML IV SCH ×2 (01:00)
[2017-03-26 05:52] LABS: APTT (PATIENT) 39.4 SEC (24.3-30.1); INTERNATIONAL NORMALIZED RATIO 1.3 RATIO; PROTHROMBIN TIME - PATIENT 14.9 SEC (9.8-11.6)
[2017-03-26 05:55] LABS: BICARBONATE 27.4 MEQ/L (21.0-32.0); MAGNESIUM 3.5 MG/DL (1.5-2.5); POTASSIUM 3.3 MEQ/L (3.5-5.1)
[2017-03-26 06:01] LABS: MEAN CELL VOLUME 69.5 FL (80.0-100.0); MEAN CORPUSCULAR HEMOGLOBIN 22.5 PG (27.0-34.0); MEAN CORPUSCULAR HGB CONC 32.4 % (32.0-36.0); PLATELET COUNT 251 TH/MM3 (150-450); RED BLOOD COUNT 4.17 MIL/MM3 (4.50-5.90); RED CELL DISTRIBUTION WIDTH 22.3 % (11.6-17.2); REVIEW FLAG FINAL; WHITE BLOOD COUNT 10.1 TH/MM3 (4.0-11.0)
[2017-03-26] MEDS: ISOSORBIDE MONONITRATE 60 MG TAB PO SCH ×2 (07:00→08:33)
[2017-03-26] MEDS ORDERED: 3% SALINE INJ 500 ML IV SCH ×2 (07:00→16:00)
[2017-03-26] MEDS: INSULIN ASPART SUPPLEMENTAL SCALE SQ SCH ×4 (08:33→21:32)
[2017-03-26] MEDS: POTASSIUM CHLOR 40 MEQ PREMIX 100 ML IV SCH ×2 (08:34→11:17)
[2017-03-26] MEDS: hydrALAZINE HCL 25 MG TAB PO SCH ×3 (09:00→18:00)
[2017-03-26] MEDS: TAMSULOSIN HCL 0.4 MG CAP PO SCH ×2 (09:00→10:17)
[2017-03-26] MEDS: ASPIRIN EC 81 MG TABEC PO SCH (10:16)
[2017-03-26] MEDS: LACTULOSE SYRUP 20 GM/30 ML CUP PO SCH ×2 (10:16→21:32)
[2017-03-26] MEDS: FERROUS SULFATE 325 MG (65 MG ELEMENTAL IRON) TAB PO SCH (10:17)
[2017-03-26] MEDS: RIVAROXABAN 15 MG TAB PO SCH (10:18)
[2017-03-26] MEDS: BISACODYL 10 MG SUPP RECTAL SCH (10:19)
[2017-03-26] MEDS: POLYETHYLENE GLYCOL 17 GM PKG PO SCH ×2 (10:19→21:32)
[2017-03-26] MEDS: DOCUSATE SODIUM 50 MG/SENNA 8.6 MG TAB PO SCH ×2 (10:19→21:31)
[2017-03-26] MEDS: CHOLECALCIFEROL (VIT D3) 5000 UNIT CAP PO SCH (10:19)
[2017-03-26] MEDS: AMIODARONE 200 MG TAB PO SCH (10:19)
[2017-03-26] MEDS: SODIUM CHLORIDE 0.9% FLUSH 10 ML FLUSH IV FLUSH SCH ×3 (10:21→21:33)
--- NOTE | 2017-03-26 10:40 | HHI.NPPN ---
Subjective General Problems: Anemia, Heart Disease Renal Failure: Chronic Additional Remarks No acute complaints, resting in bed Objective Data Data Vital Signs Date Time Temp Pulse Resp B/P (MAP) Pulse Ox O2 Delivery O2 Flow Rate FiO2 03/26/17 07:00 98.6 87 20 105/57 (73) 100 03/26/17 07:00 87 03/26/17 07:00 100 Nasal Cannula 2.00 03/26/17 04:00 89 03/26/17 04:00 98.8 89 15 106/52 (70) 100 03/26/17 04:00 100 Nasal Cannula 2.00 03/26/17 00:00 92 03/26/17 00:00 98 Nasal Cannula 2.00 03/26/17 00:00 92 18 101/52 (68) 98 03/25/17 20:00 98.7 91 18 107/54 (71) 99 03/25/17 20:00 99 Nasal Cannula 2.00 03/25/17 20:00 91 03/25/17 16:20 89 99/53 03/25/17 15:00 91 94/46 (62) 03/25/17 15:00 96 Nasal Cannula 2.00 03/25/17 15:00 91 03/25/17 15:00 98.5 91 18 94/46 (62) 97 03/25/17 11:00 96 Nasal Cannula 2.00 03/25/17 11:00 90 03/25/17 11:00 90 105/47 (66) 03/25/17 11:00 98.0 88 18 105/47 (66) 96 -: 03/26/17 0500 03/26/17 0500 Tubes & Lines: Barrett Drip Comment Dobutamine, milrinone, bumex Physical Exam General Appearance: Well Developed, Well Nourished, Comfortable, Malnourished Eyes Eye Exam: Pupils Equal Neck Neck Exam: Neck Supple Pulmonary Resp Exam: Breath Sounds Equal, No Distress, Decreased Bases, Diminished Breath Sounds Cardiology CV Exam: Good Perfusion, Irregular, Murmur Gastrointestinal/Abdomen GI Exam: Soft, Non-Tender, Bowel Sounds Present Genitourinary Exam: Clear Urine Musculoskeletal MS Exam: Joints Intact, Good Strength, Atrophy Integumentary Skin Exam: Clear, Warm, Dry, Intact Extremeties Extremities Exam: No Edema, Pedal Pulses Palpable Neurologic Neuro Exam: Alert, Awake, Oriented, Speech Clear, Moving All Extremities Psychiatric Psych Exam: Appropriate Responses VTE Prophylaxis Device: SCDs Assessment/Plan Discussed Condition With: Patient Assessment Summary: Fluid/Volume Overload, CHF, CKD Stage III, CKD Stage IV Problem List: (1) Acute kidney injury superimposed on chronic kidney disease ICD Codes: N17.9 - Acute kidney failure, unspecified; N18.9 - Chronic kidney disease, unspecified Plan: He has underlying stage III to IV CKD, may have nephrosclerosis. Recent decline in renal function likely from decompensated CHF with increased renal venous pressure, cardiorenal syndrome. Dobutamine and bumex infusions - held today by critical care, with low CVP 2.7 L UP/ 24 hours. BUN and creatinine are stable Hesitant to initiate dialysis in this end of life situation: it is unclear if he is a candidate for LVAD or heart transplant. Possible transfer to tertiary care facility as recommended by heating mechanic. Not a candidate for outpatient dialysis. Monitor renal function closely - no need for HD at this point, with stable creatinine today. Avoid nephrotoxic agents. Standing magnesium supplementation held, follow levels (2) Hyponatremia ICD Codes: E87.1 - Hypo-osmolality and hyponatremia Plan: Na has been trending downward, down to 123 today. 3% saline started at 9AM by critical care at 20cc/hour: Goal correction rate less than 8-10 meq/day. Follow Na level q 4 hours. Hyponatremia likely due to CHF - monitor closely now that diuretics are off. Follow CVP. May consider later for tolvaptan if necessary - continue to monitor closely. (3) Chronic systolic congestive heart failure ICD Codes: I50.22 - Chronic systolic (congestive) heart failure Plan: Kismet Chiqui placed, see measurements Diuresis on hold. Cardiology following; second opinion noted Consider palliative consult. Possible evaluation with [facility] for cardiac transplant. (4) Atrial fibrillation ICD Codes: I48.91 - Unspecified atrial fibrillation Plan: Rate controlled On Xarelto (5) Type 2 diabetes mellitus ICD Codes: E11.9 - Type 2 diabetes mellitus without complications Plan: Avoid Metformin. Insulin coverage, maintain blood glucose between 140 and 180 while hospitalized. Diego Magaña MD Mar 26, 2017 10:40
[2017-03-26 13:29] LABS: BICARBONATE 26.3 MEQ/L (21.0-32.0); MAGNESIUM 3.4 MG/DL (1.5-2.5); POTASSIUM 4.2 MEQ/L (3.5-5.1)
--- NOTE | 2017-03-26 15:08 | HHI.CCPN ---
Subjective Remarks/Hospital Course Hospital Course: This is a 56yM who carries a documented history of ischemic cardiomyopathy with a known EF < 20%. He has a single-ventricle AICD. He presented on 03/16 with complaints of worsening shortness of breath and MUIR which progressed to dyspnea at rest over the time course of about a month. He denies chest pain. He states that he has never had a heart attack in the past, and per our records, the last left heart catheterization was in 2006 which showed only mild disease. On admission, he had a BNP of 3300, trop 0.05, Cr 2.6 up from a baseline around 1.7 per our last records. Nephrology and cardiology were consulted. Diuresis was attempted, but despite aggressive forced diuresis, he has gained 1 kg weight since admission. An echo from 03/18 demonstrated severely reduced LV function, severe Mitral regurgitation, severe tricuspid regurgitation, pulmonary hypertension. Despite therapy, he continues to worsen and his Cr today is up to 3.8. Critical care medicine has been consulted to evaluate and manage his worsening end-organ failure. Of note, the nursing staff paged Dr. Eaton, and he stated he would be delayed until tonight in evaluating the patient , and the patient and his have requested a second opinion in his ongoing management and worsening organ dysfunction. Subjective: 03/22: feels subjectively much better. after midnight, uop increased to 100-300/ hr. Barrett placed for more accurate i/o's. patient denies SOB this AM. Cardene at 10 mg/hr. Dobutamine lowered from 7.5 mcg/kg/min to 5 mcg/kg/min overnight for hypertension concerns. Cr plateaued. RHC numbers at 06:30: HR 72. Art 119/43 (63). CVP 17. PAP 48/18 (29). PCWP 24. CO/CI 5.8/3.2. SVO2 67%. SVR 634. PVR 0.86 Howard. 03/23: continues to feel better subjectively. SOB continues to improve. uop improving with > 1L out over last 12h. However, Cr and BUN continue to rise. still requires intermittent iv hydralazine for goal sbp < 120, but off cardene now. still on bumex drip at 2 mg/hr. BNP also lower for the first time today, and weight continues to improve, although slowly. RHC numbers at 06:20: HR 72. Art 117/52 (77). CVP 20. PAP 52/16 (30). PCWP 20. CO/CI: 5.4/3. SVR 845. PVR 1.8 Howard. 03/24: added milrinone at 0.2 mcg/kg/min yesterday afternoon. overnight excellent diuresis and started significant volume removal. net -4L/24h and filling pressures starting to improve significantly. PCWP still 22, but CVP improved to 5 and RV function significantly better as evidenced by rising PAS and decreasing PAD. was 30s/20s, now 50s/10s. First sign of possible renal recovery and Cr plateaued and possibly early downtrending. Contacted [facility] and they have no records of ever seeing or evaluating patient in any [facility] [facility]. Further talked to the patient and and they have never seen any curriculum development manager outside of the [place] area for any additional work-up. RHC numbers at 06:10: HR 85. Art 122/58 (84). CVP 5. PAP 48/12 (30). PCWP 22. CO /CI 5.2/29. SVR 1215. PVR 1.5 Howard 03/25: Hgb concentrating, bun 105, tachycardia rising. PCWP 14 and PA waveform flattening. Will back off on bumex to 1 mg/hr. Continue small amounts of albumin. Keep K > 4.2, Mag > 2.0. 03/26: delayed note entry: seen around 06:20am. sodium continues to downtrend to 123 today despite being further negative with filling pressures that come close to representing dry weight (wedge down to 12-14). hold bumex drip. given persistent FELECIA and likely ATN, hyponatremia may have to do with poor renal ability to resorb sodium in the face of forced diuresis and tubular injury. unlikely to be related to total body water overload given improving indices with worsening sodium. given significant drop from yesterday to today, will be forced to start 3% nacl. otherwise patient without complaint. Objective Vital Signs Date Time Temp Pulse Resp B/P (MAP) Pulse Ox O2 Delivery O2 Flow Rate FiO2 03/26/17 11:00 96 Nasal Cannula 2.00 11/19/17 11:00 81 03/26/17 11:00 97.4 16 111/56 (74) Intake and Output 03/26/17 03/26/17 03/27/17 08:00 16:00 00:00 Intake Total 532 ml Output Total 1200 ml Balance -668 ml Result Diagram: 03/26/17 0500 03/26/17 1245 Imaging Last Impressions Chest X-Ray 03/18/17 0000 Signed Impressions: Service Date/Time: Saturday, March 18, 2017 14:58 - CONCLUSION: 1. Cardiomegaly with prominence and indistinctness of the interstitial markings characteristic of some degree of vascular congestion/CHF. 2. No confluent infiltrate or effusion. Reynold Case MD Objective Remarks gen: middle-aged male, lying in bed. breathing comfortably. heent: perrl. nc. at. mucous membranes moist. neck: - jvd today. . right IJ cordis and swan c/d/i. chest: normal respiratory rate. on nc o2 2L. cv: normal rate, irregularly irregular rhythm. afib by tele. intermittently paced. abd: soft, nontender, nondistended. no guarding extr: no edema today. distal pulses 2+. warm and well-perfused. neuro: RASS 0. GCS 15. follows commands. Procedures none A/P Assessment and Plan Assessment: 56yM with history of severe cardiomyopathy presents with decompensated congestive heart failure with worsening end-organ damage and cardiogenic shock. Clinically improving. Cr downtrending. hyponatremia persists , carefully start 3%: once improving trends, would preferentially start PO salt replacements. will not need to completely correct sodium deficit, just change trajectory. d/c dobutamine and transition to monotherapy milrinone. now that he is stable on inotropic therapy, will need to work towards transfer to high volume complex HF service, likely [facility] for further work-up and management. Without any prior work-up for VAD/Transplant or even BiV AICD resynchronization therapy, not yet a palliative discussion, and there are likely other options to improve cardiac function. Active Problems: Cardiogenic Shock - resolving. Severe mitral regurgitation Severe cardiomyopathy, unknown etiology: ischemic vs. nonischemic Severe acute congestive heart failure exacerbation, likely combination of systolic and valvulopathy Cor pulmonale Pulmonary Edema Acute hypoxemia - slight improvement. Acute Severe hypokalemia Acute kidney injury on Chronic Kidney Disease Stage III - plateaued. Respiratory Distress - improved Severe hyponatremia Plan: remain in ICU. keep swan again today. do not want to over-diurese and need to guide therapy based on filling pressures. d/c dobutamine. continue milrinone at 0.2 mcg/kg/min. hold bumex drip. prn albumin 25% to maintain intravascular volume. 3% nacl @ 20cc/hr. trend Na q6h. goal correction 8-12/24h. convert to sodium tabs TID in this setting, unlikely to be total body water overloaded, given significant 10L diuresis: more likely to be inability of injured tubules to resorb sodium, combined with forced diuresis. Aggressive K, Mg replacement serial BMP 1L fluid restriction keep Barrett today for accurate hourly i/o's. prn hydralazine and cardene for goal sbp < 120. will need LHC to rule out ischemia, but will hold for now given severe kidney injury. daily CMP, coags with regards to his mitral valve: likely functional from severe LV cavity dilation. will repeat echo once patient is back to dry weight and compare amount of MR. would not consider operative candidate unless severe MR persists once medically optimized. repeat limited 2d echo today. R IJ Cordis with PAC: 03/21. must remain today while active hemodynamic management. Kojo Hernández MD Mar 26, 2017 15:08
--- NOTE | 2017-03-26 15:51 | ECHRPT ---
Indication: EF CHF/ re eval MR and TR CONCLUSIONS Moderately dilated left ventricle. Wall thickness is normal. The left ventricular systolic function is severely reduced with an estimated ejection fraction of 15 - 20%. Global hypokinesis A pacemaker wire is noted. The right ventriclar size is upper limits of normal. The right ventricular systoilc function is mildly decreased. The left atrial size is [id number] dilated. The right atrial size is mildly dilated. Mitral annular calcification is present. Severe mitral valve regurgitation. There is trace to mild tricuspid valve regurgitation. The estimated pulmonary arterial pressure is 47.5 mmHg. Trivial pulmonary valve regurgitation. BP: / HR: Rhythm: MEASUREMENTS (Male / Female) Normal Values Technical Quality:Good 2D ECHO LV Diastolic Diameter PLAX 6.5 cm 4.2 - 5.9 / 3.9 - 5.3 cm LV Systolic Diameter PLAX 6.0 cm IVS Diastolic Thickness 1.0 cm 0.6 - 1.0 / 0.6 - 0.9 cm LVPW Diastolic Thickness 0.8 cm 0.6 - 1.0 / 0.6 - 0.9 cm LV Relative Wall Thickness 0.3 RV Internal Dim ED PLAX 2.8 cm LA Systolic Diameter LX 4.8 cm 3.0 - 4.0 / 2.7 - 3.8 cm DOPPLER MR Peak Velocity 462.0 cm/s MR Peak Gradient 85.4 mmHg TR Peak Velocity 326.0 cm/s TR Peak Gradient 42.5 mmHg Right Atrial Pressure 5.0 mmHg Pulmonary Artery Systolic Pressu 47.5 mmHg Right Ventricular Systolic Press 47.5 mmHg FINDINGS LEFT VENTRICLE Moderately dilated left ventricle. Wall thickness is normal. The left ventricular systolic function is severely reduced with an estimated ejection fraction of 15 - 20%. RIGHT VENTRICLE A pacemaker wire is noted. The right ventriclar size is upper limits of normal. The right ventricular systoilc function is mildly decreased. LEFT ATRIUM The left atrial size is uwvbsqel-ef-grqkxsfi dilated. RIGHT ATRIUM The right atrial size is mildly dilated. ATRIAL SEPTUM Normal atrial septal thickness without atrial level shunting by limited color doppler interrogation. AORTA The aortic root and proximal ascending aorta are normal in size on limited imaging. MITRAL VALVE Mitral annular calcification is present. Severe mitral valve regurgitation. AORTIC VALVE Trileaflet aortic valve. No aortic valve stenosis or regurgitation. TRICUSPID VALVE There is trace to mild tricuspid valve regurgitation. The estimated pulmonary arterial pressure is 47.5 mmHg. PULMONARY VALVE Trivial pulmonary valve regurgitation. VESSELS The inferior vena cava is normal in size. PERICARDIUM No pericardial effusion. Reggie Fontana MD (Electronically Signed) Final Date:26 March 2017 15:50
[2017-03-26] MEDS: SODIUM CHLORIDE 1 GRAM TAB PO SCH (18:04)
[2017-03-26] MEDS: MILRINONE INJ 20 MG in SODIUM CHLORIDE 0.9% INJ 80 ML IV SCH (18:04)
[2017-03-26] MEDS: EZETIMIBE 10 MG TAB PO SCH (21:32)
[2017-03-27 03:00] VITALS: BP 96/51; PULSE 83; PULSE 84; RESP 16; TEMP 98.2; O2SAT 100
[2017-03-27 04:37] LABS: HEMATOCRIT 30.3 % (39.0-51.0); MEAN CELL VOLUME 70.5 FL (80.0-100.0); MEAN CORPUSCULAR HGB CONC 31.2 % (32.0-36.0); PLATELET COUNT 247 TH/MM3 (150-450); RED CELL DISTRIBUTION WIDTH 22.5 % (11.6-17.2); REVIEW FLAG FINAL; WHITE BLOOD COUNT 15.6 TH/MM3 (4.0-11.0)
[2017-03-27 05:04] LABS: BICARBONATE 25.3 MEQ/L (21.0-32.0); MAGNESIUM 3.4 MG/DL (1.5-2.5); POTASSIUM 3.8 MEQ/L (3.5-5.1)
[2017-03-27] MEDS: ISOSORBIDE MONONITRATE 60 MG TAB PO SCH (05:53)
[2017-03-27] MEDS: SODIUM CHLORIDE 1 GRAM TAB PO SCH (05:53)
[2017-03-27 07:00] VITALS: BP 96/50; PULSE 89; PULSE 95; RESP 16; TEMP 98.1; O2SAT 99
[2017-03-27] MEDS ORDERED: SODIUM CHLORIDE 1 GRAM TAB PO SCH (08:00)
[2017-03-27] MEDS ORDERED: TOLVAPTAN 15 MG TAB PO ONE ×2 (08:00)
[2017-03-27] MEDS: INSULIN ASPART SUPPLEMENTAL SCALE SQ SCH ×4 (08:58→21:22)
[2017-03-27] MEDS: CHOLECALCIFEROL (VIT D3) 5000 UNIT CAP PO SCH (08:58)
[2017-03-27] MEDS: TAMSULOSIN HCL 0.4 MG CAP PO SCH (08:59)
[2017-03-27] MEDS: RIVAROXABAN 15 MG TAB PO SCH (08:59)
[2017-03-27] MEDS: ASPIRIN EC 81 MG TABEC PO SCH (09:00)
[2017-03-27] MEDS: hydrALAZINE HCL 25 MG TAB PO SCH ×3 (09:00→17:29)
[2017-03-27] MEDS: AMIODARONE 200 MG TAB PO SCH (09:00)
[2017-03-27] MEDS: LACTULOSE SYRUP 20 GM/30 ML CUP PO SCH ×2 (09:00→21:00)
[2017-03-27] MEDS: SODIUM CHLORIDE 0.9% FLUSH 10 ML FLUSH IV FLUSH SCH ×3 (09:00→21:00)
[2017-03-27] MEDS: BISACODYL 10 MG SUPP RECTAL SCH (09:00)
[2017-03-27] MEDS: POLYETHYLENE GLYCOL 17 GM PKG PO SCH (09:00)
[2017-03-27] MEDS: DOCUSATE SODIUM 50 MG/SENNA 8.6 MG TAB PO SCH (09:00)
[2017-03-27] MEDS: FERROUS SULFATE 325 MG (65 MG ELEMENTAL IRON) TAB PO SCH (09:42)
--- NOTE | 2017-03-27 10:22 | HHI.NPPN ---
Subjective General Problems: Anemia, Heart Disease Renal Failure: Chronic Interval History 3% saline and bumex gtt discontinued. He is on milrinone. Looks weak, tired. (Alfreda Hernandez) Objective Data Data Vital Signs Date Time Temp Pulse Resp B/P (MAP) Pulse Ox O2 Delivery O2 Flow Rate FiO2 03/27/17 03:00 98.2 84 16 96/51 (66) 100 03/27/17 03:00 100 Room Air 03/27/17 03:00 83 03/26/17 23:00 98.0 84 17 107/53 (71) 100 03/26/17 23:00 100 Room Air 03/26/17 23:00 84 03/26/17 19:00 100 Nasal Cannula 1.00 03/26/17 19:00 84 03/26/17 19:00 97.9 84 19 103/51 (68) 100 03/26/17 18:04 80 111/56 03/26/17 15:00 97.4 85 18 113/55 (74) 100 03/26/17 15:00 100 Nasal Cannula 2.00 03/26/17 15:00 85 03/26/17 11:00 96 Nasal Cannula 2.00 03/26/17 11:00 81 03/26/17 11:00 97.4 81 16 111/56 (74) 96 (Alfreda Hernandez) -: 03/27/17 0400 03/27/17 0400 Imaging Last Impressions Chest X-Ray 03/21/17 0000 Signed Impressions: Service Date/Time: Tuesday, March 21, 2017 17:51 - CONCLUSION: 1. Right IJ central line has been placed and likely represents a pulmonary artery catheter. Distal tip extends into the region of the right interlobar artery. 2. Otherwise , no significant change. There is stable interstitial prominence bilaterally. Caleb Segundo MD Tubes & Lines: Barrett Drip Comment milrinone (Alfreda Hernandez) Physical Exam General Appearance: Well Developed, Well Nourished, Comfortable, Malnourished Appearance Remarks frail, cachectic (Alfreda Hernandez) Eyes Eye Exam: Pupils Equal (Alfreda Hernandez) Neck Neck Exam: Neck Supple (Mary,Alfreda B. RN ACLS) Pulmonary Resp Exam: Breath Sounds Equal, No Distress, Decreased Bases, Diminished Breath Sounds (Alfreda Hernandez. RN ACLS) Cardiology CV Exam: Good Perfusion, Irregular, Murmur CV Remarks AICD left chest (Alfreda Hernandez. RN ACLS) Gastrointestinal/Abdomen GI Exam: Soft, Non-Tender, Bowel Sounds Present (Alfreda Hernandez. RN ACLS) Genitourinary Exam: Clear Urine (Alfreda Hernandez RN ACLS) Musculoskeletal MS Exam: Joints Intact, Good Strength, Atrophy (Alfreda Hernandez. RN ACLS) Integumentary Skin Exam: Clear, Warm, Dry, Intact (Alfreda Hernandez. RN ACLS) Extremeties Extremities Exam: No Edema, Pedal Pulses Palpable (Alfreda Hernandez. RN ACLS) Neurologic Neuro Exam: Alert, Awake, Oriented, Speech Clear, Moving All Extremities (Alfreda Hernandez. RN ACLS) Psychiatric Psych Exam: Appropriate Responses (Alfreda Hernandez) VTE Prophylaxis Device: SCDs (Alfreda Hernandez RN ACLS) Assessment/Plan Discussed Condition With: Patient Assessment Summary: Fluid/Volume Overload, CHF, CKD Stage III, CKD Stage IV Problem List: (1) Acute kidney injury superimposed on chronic kidney disease ICD Codes: N17.9 - Acute kidney failure, unspecified; N18.9 - Chronic kidney disease, unspecified Plan: He has underlying stage III to IV CKD, may have nephrosclerosis. Recent decline in renal function likely from decompensated CHF with increased renal venous pressure, cardiorenal syndrome. Creatinine is better. High BUN may be due overdiuresis. Bumex currently on hold He is non oliguric, no indication for HD currently. Given advanced heart failure he is not a candidate for renal replacement therapy. Possible transfer to tertiary facility for LVAD or heart transplant may be necessary. Avoid nephrotoxic agents. Repeat labs in AM (2) Hyponatremia ICD Codes: E87.1 - Hypo-osmolality and hyponatremia Plan: Serum sodium level is lower He was on 3% Saline, that was stopped Now on 2 g NaCl tabs TID Also given tolvaptan Hyponatremia likely due to CHF - monitor closely now that diuretics are off. Follow CVP. Fluid restriction not required (3) Chronic systolic congestive heart failure ICD Codes: I50.22 - Chronic systolic (congestive) heart failure Plan: [place] Chiqui in place, low CVP recently, see other measurements Diuresis on hold. Cardiology following; second opinion noted Consider palliative consult. [facility]. (4) Atrial fibrillation ICD Codes: I48.91 - Unspecified atrial fibrillation Plan: Rate controlled On Xarelto (5) Type 2 diabetes mellitus ICD Codes: E11.9 - Type 2 diabetes mellitus without complications Plan: Avoid Metformin. Insulin coverage, maintain blood glucose between 140 and 180 while hospitalized. (Alfreda Hernandez) Problem List: (1) Acute kidney injury superimposed on chronic kidney disease ICD Codes: N17.9 - Acute kidney failure, unspecified; N18.9 - Chronic kidney disease, unspecified Plan: He has underlying stage III to IV CKD, may have nephrosclerosis. Recent decline in renal function likely from decompensated CHF with increased renal venous pressure, cardiorenal syndrome. Creatinine is better. High BUN may be due overdiuresis. Bumex currently on hold He is non oliguric, no indication for HD currently. Given advanced heart failure he is not a candidate for renal replacement therapy. Possible transfer to tertiary facility for LVAD or heart transplant may be necessary. Avoid nephrotoxic agents. Repeat labs in AM (2) Hyponatremia ICD Codes: E87.1 - Hypo-osmolality and hyponatremia Plan: Serum sodium level is lower He was on 3% Saline, that was stopped Now on 2 g NaCl tabs TID Also given tolvaptan Hyponatremia likely due to CHF - monitor closely now that diuretics are off. Follow CVP. Fluid restriction not required (3) Chronic systolic congestive heart failure ICD Codes: I50.22 - Chronic systolic (congestive) heart failure Plan: [place] Chiqui in place, low CVP recently, see other measurements Diuresis on hold. Cardiology following; second opinion noted Consider palliative consult. Possible evaluation with [facility] for cardiac transplant. (4) Atrial fibrillation ICD Codes: I48.91 - Unspecified atrial fibrillation Plan: Rate controlled On Xarelto (5) Type 2 diabetes mellitus ICD Codes: E11.9 - Type 2 diabetes mellitus without complications Plan: Avoid Metformin. Insulin coverage, maintain blood glucose between 140 and 180 while hospitalized. Plan patient was seen and examined. Events of the weekend noted. 3% saline should not be used for this patient. Also, he should not be on salt tablets. Hyponatremia is due to non osmotic release of ADH. Reflects poor prognosis. Tolvaptan may be an option. (Doc Salazar MD) Alfreda Hernandez. [facility] Mar 27, 2017 10:22 Doc Salazar MD Mar 27, 2017 10:51
[2017-03-27 11:00] VITALS: BP 110/50; PULSE 86; PULSE 89; RESP 18; TEMP 98.1; O2SAT 100
[2017-03-27 15:00] VITALS: BP 89/50; PULSE 87; PULSE 89; RESP 18; TEMP 97.5; O2SAT 96
--- NOTE | 2017-03-27 18:49 | HHI.CCPN ---
Subjective Remarks/Hospital Course Hospital Course: This is a 56yM who carries a documented history of ischemic cardiomyopathy with a known EF < 20%. He has a single-ventricle AICD. He presented on 03/16 with complaints of worsening shortness of breath and MUIR which progressed to dyspnea at rest over the time course of about a month. He denies chest pain. He states that he has never had a heart attack in the past, and per our records, the last left heart catheterization was in 2006 which showed only mild disease. On admission, he had a BNP of 3300, trop 0.05, Cr 2.6 up from a baseline around 1.7 per our last records. Nephrology and cardiology were consulted. Diuresis was attempted, but despite aggressive forced diuresis, he has gained 1 kg weight since admission. An echo from 03/18 demonstrated severely reduced LV function, severe Mitral regurgitation, severe tricuspid regurgitation, pulmonary hypertension. Despite therapy, he continues to worsen and his Cr today is up to 3.8. Critical care medicine has been consulted to evaluate and manage his worsening end-organ failure. Of note, the nursing staff paged Dr. Eaton, and he stated he would be delayed until tonight in evaluating the patient , and the patient and his have requested a second opinion in his ongoing management and worsening organ dysfunction. Subjective: 03/22: feels subjectively much better. after midnight, uop increased to 100-300/ hr. Barrett placed for more accurate i/o's. patient denies SOB this AM. Cardene at 10 mg/hr. Dobutamine lowered from 7.5 mcg/kg/min to 5 mcg/kg/min overnight for hypertension concerns. Cr plateaued. RHC numbers at 06:30: HR 72. Art 119/43 (63). CVP 17. PAP 48/18 (29). PCWP 24. CO/CI 5.8/3.2. SVO2 67%. SVR 634. PVR 0.86 Howard. 03/23: continues to feel better subjectively. SOB continues to improve. uop improving with > 1L out over last 12h. However, Cr and BUN continue to rise. still requires intermittent iv hydralazine for goal sbp < 120, but off cardene now. still on bumex drip at 2 mg/hr. BNP also lower for the first time today, and weight continues to improve, although slowly. RHC numbers at 06:20: HR 72. Art 117/52 (77). CVP 20. PAP 52/16 (30). PCWP 20. CO/CI: 5.4/3. SVR 845. PVR 1.8 Howard. 03/24: added milrinone at 0.2 mcg/kg/min yesterday afternoon. overnight excellent diuresis and started significant volume removal. net -4L/24h and filling pressures starting to improve significantly. PCWP still 22, but CVP improved to 5 and RV function significantly better as evidenced by rising PAS and decreasing PAD. was 30s/20s, now 50s/10s. First sign of possible renal recovery and Cr plateaued and possibly early downtrending. Contacted [facility] and they have no records of ever seeing or evaluating patient in any [place] clinic. Further talked to the patient and and they have never seen any cost estimating clerk outside of the [place] area for any additional work-up. RHC numbers at 06:10: HR 85. Art 122/58 (84). CVP 5. PAP 48/12 (30). PCWP 22. CO /CI 5.2/29. SVR 1215. PVR 1.5 Howard 03/25: Hgb concentrating, bun 105, tachycardia rising. PCWP 14 and PA waveform flattening. Will back off on bumex to 1 mg/hr. Continue small amounts of albumin. Keep K > 4.2, Mag > 2.0. 03/26: delayed note entry: seen around 06:20am. sodium continues to downtrend to 123 today despite being further negative with filling pressures that come close to representing dry weight (wedge down to 12-14). hold bumex drip. given persistent FELECIA and likely ATN, hyponatremia may have to do with poor renal ability to resorb sodium in the face of forced diuresis and tubular injury. unlikely to be related to total body water overload given improving indices with worsening sodium. given significant drop from yesterday to today, will be forced to start 3% nacl. otherwise patient without complaint. 03/27: continues ongoing diuresis. sodium still 125. gave dose of tolvaptan. would prefer to avoid additional 3%. endorses diarrhea which is new. wbc uptrending, but afebrile. nontoxic appearing. Objective Vital Signs Date Time Temp Pulse Resp B/P (MAP) Pulse Ox O2 Delivery O2 Flow Rate FiO2 03/27/17 15:00 87 89/50 (63) 03/27/17 15:00 96 Room Air 03/27/17 15:00 97.5 18 03/26/17 19:00 1.00 Intake and Output 03/27/17 03/27/17 03/28/17 08:00 16:00 00:00 Intake Total 360 ml 586 ml Output Total 1050 ml 1000 ml Balance -690 ml -414 ml Result Diagram: 03/27/17 0400 03/27/17 1408 Imaging Last Impressions Chest X-Ray 03/18/17 0000 Signed Impressions: Service Date/Time: Saturday, March 18, 2017 14:58 - CONCLUSION: 1. Cardiomegaly with prominence and indistinctness of the interstitial markings characteristic of some degree of vascular congestion/CHF. 2. No confluent infiltrate or effusion. Reynold Case MD Objective Remarks gen: middle-aged male, lying in bed. breathing comfortably. heent: perrl. nc. at. mucous membranes moist. neck: - jvd today. . right IJ cordis and swan c/d/i. chest: normal respiratory rate. on room air today. cv: normal rate, irregularly irregular rhythm. afib by tele. intermittently paced. abd: soft, nontender, nondistended. no guarding extr: no edema today. distal pulses 2+. warm and well-perfused. neuro: RASS 0. GCS 15. follows commands. Procedures none A/P Assessment and Plan Assessment: 56yM with history of severe cardiomyopathy presents with decompensated congestive heart failure with worsening end-organ damage and cardiogenic shock. Clinically improving. Cr continues to downtrend. hyponatremia persists, likely solute depleted. I have started the transfer process to tertiary care center. I do not want to wean inotropic therapy because if his cardiac output drops and kidney injury worsens again, he may progress to full kidney failure and renal replacement therapy. Without any prior work-up for VAD/Transplant or even BiV AICD resynchronization therapy, not yet a palliative discussion, and there are likely other options to improve cardiac function. Active Problems: Cardiogenic Shock - resolving Severe mitral regurgitation Severe cardiomyopathy, unknown etiology: ischemic vs. nonischemic Severe acute congestive heart failure exacerbation, likely combination of systolic and valvulopathy - improving. Cor pulmonale Pulmonary Edema Acute hypoxemia - slight improvement. Acute Severe hypokalemia Acute kidney injury on Chronic Kidney Disease Stage III - plateaued. Respiratory Distress - improved Severe hyponatremia Plan: remain in ICU. d/c swan. continue milrinone at 0.2 mcg/kg/min. continue cvp monitoring hold bumex drip. prn albumin 25% to maintain intravascular volume. tomorrow will need to resume daily bumex regimen. tolvaptan 7.5mg x 1. serial sodiums. sodium tabs. in this setting, unlikely to be total body water overloaded, given significant 10L diuresis: more likely to be inability of injured tubules to resorb sodium, combined with forced diuresis. solute deplete. start transfer process to tertiary care center for advanced HF work-up. Aggressive K, Mg replacement serial BMP 1L fluid restriction keep Barrett today for accurate hourly i/o's. prn hydralazine and cardene for goal sbp < 120. will need C to rule out ischemia, but will hold for now given severe kidney injury. daily CMP, coags with regards to his mitral valve: likely functional from severe LV cavity dilation. repeat echo 03/26 with persistence of severe MR, but qualitatively much improved from the wide-open blowing MR seen on 03/21 echo. R YURI Cordis with PAC: 03/21. remain today. Kojo Hernández MD Mar 27, 2017 18:49
[2017-03-27 19:00] VITALS: BP 104/55; PULSE 84; PULSE 89; RESP 20; TEMP 98.7; O2SAT 95
[2017-03-27] MEDS ORDERED: LOPERAMIDE HCL 2 MG CAP PO ONE (19:15)
[2017-03-27] MEDS: EZETIMIBE 10 MG TAB PO SCH (21:21)
[2017-03-27] MEDS: MILRINONE INJ 20 MG in SODIUM CHLORIDE 0.9% INJ 80 ML IV SCH (21:29)
[2017-03-27 23:00] VITALS: BP 99/50; PULSE 86; PULSE 90; RESP 20; TEMP 98.5; O2SAT 98
[2017-03-28 03:00] VITALS: BP 113/53; PULSE 86; PULSE 89; RESP 20; TEMP 98.5; O2SAT 99
[2017-03-28 05:33] LABS: HEMATOCRIT 28.1 % (39.0-51.0); MEAN CELL VOLUME 70.4 FL (80.0-100.0); MEAN CORPUSCULAR HEMOGLOBIN 22.3 PG (27.0-34.0); MEAN CORPUSCULAR HGB CONC 31.7 % (32.0-36.0); PLATELET COUNT 235 TH/MM3 (150-450); RED BLOOD COUNT 3.98 MIL/MM3 (4.50-5.90); RED CELL DISTRIBUTION WIDTH 22.3 % (11.6-17.2); REVIEW FLAG FINAL; WHITE BLOOD COUNT 14.7 TH/MM3 (4.0-11.0)
[2017-03-28 06:07] LABS: BICARBONATE 25.3 MEQ/L (21.0-32.0); MAGNESIUM 3.3 MG/DL (1.5-2.5)
[2017-03-28 06:08] LABS: POTASSIUM 3.1 MEQ/L (3.5-5.1)
[2017-03-28] MEDS ORDERED: POTASSIUM CHLORIDE 25 MEQ EFFERVESCENT TAB PO ONE (06:45)
[2017-03-28] MEDS: POTASSIUM CHLOR 20 MEQ PREMIX 100 ML IV SCH ×2 (06:45→10:29)
[2017-03-28] MEDS ORDERED: TOLVAPTAN 15 MG TAB PO ONE (06:45)
[2017-03-28 08:00] VITALS: BP 96/54; PULSE 87; RESP 18; TEMP 98.8; O2SAT 94
[2017-03-28] MEDS: ISOSORBIDE MONONITRATE 60 MG TAB PO SCH (08:17)
[2017-03-28] MEDS: INSULIN ASPART SUPPLEMENTAL SCALE SQ SCH ×4 (08:46→21:00)
[2017-03-28] MEDS: TAMSULOSIN HCL 0.4 MG CAP PO SCH (08:48)
[2017-03-28] MEDS: ASPIRIN EC 81 MG TABEC PO SCH (08:48)
[2017-03-28] MEDS: AMIODARONE 200 MG TAB PO SCH (08:49)
[2017-03-28] MEDS: FERROUS SULFATE 325 MG (65 MG ELEMENTAL IRON) TAB PO SCH (08:49)
[2017-03-28] MEDS: CHOLECALCIFEROL (VIT D3) 5000 UNIT CAP PO SCH (08:49)
[2017-03-28] MEDS: RIVAROXABAN 15 MG TAB PO SCH (08:50)
[2017-03-28] MEDS: LACTULOSE SYRUP 20 GM/30 ML CUP PO SCH ×2 (09:00→21:00)
[2017-03-28] MEDS: SODIUM CHLORIDE 0.9% FLUSH 10 ML FLUSH IV FLUSH SCH ×2 (09:00)
[2017-03-28] MEDS: hydrALAZINE HCL 25 MG TAB PO SCH ×3 (09:00→18:00)
--- NOTE | 2017-03-28 10:29 | HHI.NPPN ---
Subjective General Problems: Anemia, Heart Disease Renal Failure: Chronic Interval History Sitting up in a chair. Creatinine is slightly better, BUN is higher. He is on milrinone infusion. Hypokalemic. (Alfreda Hernandez) Review of Systems General Constitutional: Fatigue (Alfreda Hernandez) Respiratory Lungs: SOB (Alfreda Hernandez) Objective Data Data Vital Signs Date Time Temp Pulse Resp B/P (MAP) Pulse Ox O2 Delivery O2 Flow Rate FiO2 03/28/17 08:00 94 Room Air 03/28/17 08:00 98.8 87 18 96/54 (68) 94 03/28/17 08:00 87 03/28/17 03:00 98 Room Air 03/28/17 03:00 98.5 89 20 113/53 (73) 99 03/28/17 03:00 86 03/27/17 23:00 98.5 86 20 99/50 (66) 98 03/27/17 23:00 98 Room Air 03/27/17 23:00 90 03/27/17 21:29 89 107/55 03/27/17 19:00 98.7 89 20 104/55 (71) 95 03/27/17 19:00 84 03/27/17 19:00 95 Room Air 03/27/17 15:00 87 89/50 (63) 03/27/17 15:00 87 03/27/17 15:00 96 Room Air 03/27/17 15:00 97.5 89 18 89/50 (63) 96 03/27/17 11:00 89 110/50 (70) 03/27/17 11:00 100 Room Air 03/27/17 11:00 98.1 86 18 110/50 (70) 100 03/27/17 11:00 89 (Alfreda Hernandez) -: 03/28/17 0500 03/28/17 0500 Tubes & Lines: Barrett Drip Comment milrinone (Alfreda Hernandez) Physical Exam General Appearance: Well Developed, Well Nourished, Comfortable, Malnourished Appearance Remarks frail, cachectic (Alfreda Hernandez) Eyes Eye Exam: Pupils Equal (Alfreda Hernandez) Neck Neck Exam: Neck Supple (Alfreda Hernandez) Pulmonary Resp Exam: Breath Sounds Equal, No Distress, Decreased Bases, Diminished Breath Sounds (Alfreda Hernandez) Cardiology CV Exam: Regular, Good Perfusion, Murmur CV Remarks paced rhythm (Alfreda Hernandez) Gastrointestinal/Abdomen GI Exam: Soft, Non-Tender, Bowel Sounds Present (Alfreda Hernandez) Genitourinary Exam: Clear Urine (Alfreda Hernandez) Musculoskeletal MS Exam: Joints Intact, Good Strength, Atrophy (Alfreda Hernandez) Integumentary Skin Exam: Clear, Warm, Dry, Intact (Alfreda Hernandez) Extremeties Extremities Exam: No Edema, Pedal Pulses Palpable (Alfreda Hernandez) Neurologic Neuro Exam: Alert, Awake, Oriented, Speech Clear, Moving All Extremities (Alfreda Hernandez) Psychiatric Psych Exam: Appropriate Responses (Alfreda Hernandez) VTE Prophylaxis Device: SCDs (Alfreda Hernandez) Assessment/Plan Discussed Condition With: Patient Assessment Summary: Fluid/Volume Overload, CHF, CKD Stage III, CKD Stage IV Electrolyte Assessment: Hyponatremia Problem List: (1) Acute kidney injury superimposed on chronic kidney disease ICD Codes: N17.9 - Acute kidney failure, unspecified; N18.9 - Chronic kidney disease, unspecified Plan: He has underlying stage III to IV CKD, may have nephrosclerosis. Recent decline in renal function likely from decompensated CHF with increased renal venous pressure, cardiorenal syndrome. Creatinine is better. High BUN may be due overdiuresis. Diuretics remain on hold Avoid IVF, tolerating oral fluids He is non oliguric There is no urgent need for HD at this time. Given advanced heart failure he is not a candidate for renal replacement therapy. Possible transfer to tertiary facility for LVAD or heart transplant may be necessary. Avoid nephrotoxic agents. Repeat labs in AM (2) Hyponatremia ICD Codes: E87.1 - Hypo-osmolality and hyponatremia Plan: Serum sodium level is 125 NaCl tabs were stopped; off 3% saline He has been given tolvaptan x 2 doses Repeat labs (3) Chronic systolic congestive heart failure ICD Codes: I50.22 - Chronic systolic (congestive) heart failure Plan: [place] Chiqui removed Diuresis on hold. Cardiology following; second opinion noted Consider palliative consult. HE has been declined for transfer to [facility] for heart transplant for LVAD per RN (4) Atrial fibrillation ICD Codes: I48.91 - Unspecified atrial fibrillation Plan: Rate controlled On Xarelto (5) Type 2 diabetes mellitus ICD Codes: E11.9 - Type 2 diabetes mellitus without complications Plan: Avoid Metformin. Insulin coverage, maintain blood glucose between 140 and 180 while hospitalized. (Alfreda Hernandez) Plan patient was seen and examined. Creatinine is better. He is not a candidate for dialysis. Hyponatremia is due to non osmotic release of ADH. 3% saline or salt tablets should not used in this condition. Hyponatremia is not due to failure of sodium reabsorption(in any event, urine Na was not checked, but this does not happen in this clinical situation. On the other hand there may more avid reabsorption of sodium due to CHF). (Doc Salazar MD) Alfreda Hernandez Mar 28, 2017 10:29 Doc Salazar MD Mar 28, 2017 10:47
[2017-03-28 11:00] VITALS: BP 121/45; PULSE 89; RESP 18; TEMP 98.6; O2SAT 99
[2017-03-28] MEDS ORDERED: LOPERAMIDE HCL 2 MG CAP PO ONE (14:30)
[2017-03-28 15:00] VITALS: BP 103/52; PULSE 83; PULSE 87; RESP 18; TEMP 98.6; O2SAT 97
[2017-03-28] MEDS: MILRINONE INJ 20 MG in SODIUM CHLORIDE 0.9% INJ 80 ML IV SCH (15:51)
[2017-03-28] MEDS ORDERED: SODIUM CHLOR 0.9% 250 ML INJ 250 ML IV PRN (19:30)
[2017-03-28] MEDS ORDERED: ONDANSETRON HCL 4 MG/2 ML VIAL IV PUSH PRN (19:30)
[2017-03-28] MEDS ORDERED: LIDOCAINE HCL 1% 50 ML VIAL INFIL PRN (19:30)
[2017-03-28] MEDS ORDERED: ATROPINE SULFATE 1 MG/ML VIAL IV PUSH PRN (19:30)
[2017-03-28] MEDS ORDERED: BACITRACIN OINT 0.9 GM PKT TOP ONE (19:30)
[2017-03-28] MEDS ORDERED: oxyCODONE/ACETAMINOPHEN 5 MG/325 MG TAB PO PRN ×2 (19:30)
[2017-03-28] MEDS ORDERED: LORazepam 2 MG/ML VIAL IV PUSH PRN (19:30)
[2017-03-28] MEDS ORDERED: METOCLOPRAMIDE HCL 10 MG/2 ML VIAL IV PUSH PRN (19:30)
--- NOTE | 2017-03-28 20:10 | MB ---
cc: RHONDA DURAN M.D. DATE OF CONSULTATION 03/28/17 ELECTROPHYSIOLOGY CONSULT REASON FOR CONSULTATION Heart failure, for evaluation. HISTORY OF PRESENT ILLNESS Mr. Golden is a 56-year-old -[place] gentleman with congestive heart failure, cardiomyopathy, the gentleman has a defibrillator implanted last August. Biventricular defibrillator implanted last August by Dr. Eaton. Subsequently, he was admitted on multiple occasion due to heart failure. Apparently, there is no clear ischemic workup. The gentleman was followed by Dr. Hoffman. He has cardiac cachexia. This is basically indication of end-stage heart failure. Apparently, the gentleman never evaluated by the transplant service. I was consulted by Dr. Skinner for further evaluation and management. The chart was reviewed. The patient was evaluated. I discussed the case extensively with Dr. Hernández over the phone as well as the patient personally. ALLERGIES None. SOCIAL HISTORY Currently negative for smoking and drinking. FAMILY HISTORY Noncontributory to his current medical condition. MEDICATIONS He is on: 1. Vasotec. 2. He is on Jauniva. 3. Cardizem. 4. Bumex. 5. Coreg. 6. Ferrous sulfate. 7. Amiodarone. 8. Megace. 9. Lyrica. 10. Metformin. 11. Xarelto. 12. Vitamin. REVIEW OF SYSTEMS He refers tired and loss of appetite but no chest pain or chest discomfort. PHYSICAL EXAMINATION GENERAL: Alert, fully oriented, in bed. VITAL SIGNS: Blood pressure 103/52, pulse 87, respiratory rate 18. LUNGS: Ventilated. CARDIOVASCULAR: S1-S2, regular. ABDOMEN: Soft. No mass. EXTREMITIES: No edema. CARDIOLOGY STUDIES Electrocardiogram AV sequential pacing. LABORATORY DATA Hemoglobin is 8.9, white blood cell 14.7 coming down from 15.6. Potassium 3.1, creatinine is improving 2.88, magnesium 3.3, INR 1.3. ASSESSMENT AND RECOMMENDATIONS Mr. Golden has very advanced heart failure. Apparently, ejection fraction is 20%. He was having renal hypoperfusion. Milrinone was initiated. The patient condition improved. The patient device was interrogated recently indicated bi-V pacing. I am going to contact the rep for device reprogramming. As mentioned before, this is end-stage heart failure with cachexia. The prognosis is very poor. The gentleman definitely needs LVAD or to put on ____ transplant list. I am going to contact [place] for evaluation and possible transfer. I am not sure that will be possible over the holiday but at least by Monday that may be possible. Case extensively discussed with him. I will keep him on the current medication. I will closely monitor him during hospitalization. TPN should be considered. Rhonda Duran MD HS/EO /7:29 PM /7:40 PM
[2017-03-28] MEDS: EZETIMIBE 10 MG TAB PO SCH (21:00)
--- NOTE | 2017-03-28 21:23 | HHI.CCPN ---
Subjective Remarks/Hospital Course Hospital Course: This is a 56yM who carries a documented history of ischemic cardiomyopathy with a known EF < 20%. He has a single-ventricle AICD. He presented on 03/16 with complaints of worsening shortness of breath and MUIR which progressed to dyspnea at rest over the time course of about a month. He denies chest pain. He states that he has never had a heart attack in the past, and per our records, the last left heart catheterization was in 2006 which showed only mild disease. On admission, he had a BNP of 3300, trop 0.05, Cr 2.6 up from a baseline around 1.7 per our last records. Nephrology and cardiology were consulted. Diuresis was attempted, but despite aggressive forced diuresis, he has gained 1 kg weight since admission. An echo from 03/18 demonstrated severely reduced LV function, severe Mitral regurgitation, severe tricuspid regurgitation, pulmonary hypertension. Despite therapy, he continues to worsen and his Cr today is up to 3.8. Critical care medicine has been consulted to evaluate and manage his worsening end-organ failure. Of note, the nursing staff paged Dr. Eaton, and he stated he would be delayed until tonight in evaluating the patient , and the patient and his have requested a second opinion in his ongoing management and worsening organ dysfunction. Subjective: 03/22: feels subjectively much better. after midnight, uop increased to 100-300/ hr. Barrett placed for more accurate i/o's. patient denies SOB this AM. Cardene at 10 mg/hr. Dobutamine lowered from 7.5 mcg/kg/min to 5 mcg/kg/min overnight for hypertension concerns. Cr plateaued. RHC numbers at 06:30: HR 72. Art 119/43 (63). CVP 17. PAP 48/18 (29). PCWP 24. CO/CI 5.8/3.2. SVO2 67%. SVR 634. PVR 0.86 Howard. 03/23: continues to feel better subjectively. SOB continues to improve. uop improving with > 1L out over last 12h. However, Cr and BUN continue to rise. still requires intermittent iv hydralazine for goal sbp < 120, but off cardene now. still on bumex drip at 2 mg/hr. BNP also lower for the first time today, and weight continues to improve, although slowly. RHC numbers at 06:20: HR 72. Art 117/52 (77). CVP 20. PAP 52/16 (30). PCWP 20. CO/CI: 5.4/3. SVR 845. PVR 1.8 Howard. 03/24: added milrinone at 0.2 mcg/kg/min yesterday afternoon. overnight excellent diuresis and started significant volume removal. net -4L/24h and filling pressures starting to improve significantly. PCWP still 22, but CVP improved to 5 and RV function significantly better as evidenced by rising PAS and decreasing PAD. was 30s/20s, now 50s/10s. First sign of possible renal recovery and Cr plateaued and possibly early downtrending. Contacted [facility] and they have no records of ever seeing or evaluating patient in any [place] clinic. Further talked to the patient and and they have never seen any infection control preventionist outside of the [place] area for any additional work-up. RHC numbers at 06:10: HR 85. Art 122/58 (84). CVP 5. PAP 48/12 (30). PCWP 22. CO /CI 5.2/29. SVR 1215. PVR 1.5 Howard 03/25: Hgb concentrating, bun 105, tachycardia rising. PCWP 14 and PA waveform flattening. Will back off on bumex to 1 mg/hr. Continue small amounts of albumin. Keep K > 4.2, Mag > 2.0. 03/26: delayed note entry: seen around 06:20am. sodium continues to downtrend to 123 today despite being further negative with filling pressures that come close to representing dry weight (wedge down to 12-14). hold bumex drip. given persistent FELECIA and likely ATN, hyponatremia may have to do with poor renal ability to resorb sodium in the face of forced diuresis and tubular injury. unlikely to be related to total body water overload given improving indices with worsening sodium. given significant drop from yesterday to today, will be forced to start 3% nacl. otherwise patient without complaint. 03/27: continues ongoing diuresis. sodium still 125. gave dose of tolvaptan. would prefer to avoid additional 3%. endorses diarrhea which is new. wbc uptrending, but afebrile. nontoxic appearing. 03/28: discussed case at length with [facility] HF group: too high risk given acute organ dysfunction for urgent mechanical support or transplant work-up. they agree if we can get him safely off inotropes and out of the hospital they will see him in HF clinic at [facility], but have denied transfer for acute work-up. patient continues to diurese on milrinone. sodium stable. redose tolvaptan today. Cr continues to improve. needs aggressive PT and a dietary plan to include anabolism and weight gain. Objective Vital Signs Date Time Temp Pulse Resp B/P (MAP) Pulse Ox O2 Delivery O2 Flow Rate FiO2 03/28/17 15:51 87 103/57 03/28/17 15:00 98.6 18 97 03/28/17 15:00 Room Air 03/26/17 19:00 1.00 Intake and Output 03/28/17 03/28/17 03/29/17 08:00 16:00 00:00 Intake Total 330 ml 100 ml 600 ml Output Total 750 ml 2500 ml Balance -420 ml 100 ml -1900 ml Result Diagram: 03/28/17 0500 03/28/17 0500 Imaging Last Impressions Chest X-Ray 03/18/17 0000 Signed Impressions: Service Date/Time: Saturday, March 18, 2017 14:58 - CONCLUSION: 1. Cardiomegaly with prominence and indistinctness of the interstitial markings characteristic of some degree of vascular congestion/CHF. 2. No confluent infiltrate or effusion. Reynold Case MD Objective Remarks gen: middle-aged male, lying in bed. breathing comfortably. heent: perrl. nc. at. mucous membranes moist. neck: - jvd today . right IJ cordis chest: normal respiratory rate. on room air today. cv: normal rate, irregularly irregular rhythm. afib by tele. intermittently paced. abd: soft, nontender, nondistended. no guarding extr: no edema today. distal pulses 2+. warm and well-perfused. neuro: RASS 0. GCS 15. follows commands. Procedures none A/P Assessment and Plan Assessment: 56yM with history of severe cardiomyopathy presents with decompensated congestive heart failure with worsening end-organ damage and cardiogenic shock. Clinically improving. Cr continues to downtrend. hyponatremia persists, likely solute depleted. denied transfer to [facility]. will consult Dr. Voss to assist with biventricular resynchronization therapy. leave milrinone today. will attempt to wean inotropic therapy in attempt to get him out of the inpatient setting. will need inpatient rehab, and at this point will need aggressive PT twice a day. Dietary consult and plans to add muslce mass and nutrition. Without any prior work-up for VAD/Transplant, not yet a palliative discussion, and there are likely other options to improve cardiac function. Active Problems: Cardiogenic Shock - resolving Severe mitral regurgitation Severe cardiomyopathy, unknown etiology: ischemic vs. nonischemic Severe acute congestive heart failure exacerbation, likely combination of systolic and valvulopathy - improving. Cor pulmonale Pulmonary Edema - resolved. Acute hypoxemia - slight improvement. Acute Severe hypokalemia Acute kidney injury on Chronic Kidney Disease Stage III - improving. Respiratory Distress - improved Severe hyponatremia Plan: continue milrinone at 0.2 mcg/kg/min. continue cvp monitoring hold bumex drip. prn albumin 25% to maintain intravascular volume. will need oral bumex regimen soon. tolvaptan 15mg x 1. serial sodiums. sodium tabs. in this setting, unlikely to be total body water overloaded, given significant 10L diuresis: more likely to be inability of injured tubules to resorb sodium, combined with forced diuresis. solute deplete. denied transfer to [facility] Consult Dr. Voss for EP assistance. Aggressive K, Mg replacement serial BMP 1L fluid restriction keep Barrett today for accurate hourly i/o's. prn hydralazine and cardene for goal sbp < 120. will need C to rule out ischemia, but will hold for now given severe kidney injury. daily CMP, coags with regards to his mitral valve: likely functional from severe LV cavity dilation. repeat echo 03/26 with persistence of severe MR, but qualitatively much improved from the wide-open blowing MR seen on 03/21 echo. R IJ Cordis: 03/21. remain today. PT, OT consults. aggressive PT. needs inpatient rehab when improved. dietary consult: needs aggressive plan to improve nutritional status if he is ever to be considered for mechanical support. Kojo Hernández MD Mar 28, 2017 21:23
[2017-03-28] MEDS: ACETAMINOPHEN 325 MG TAB PO PRN (23:44)
[2017-03-29] MEDS: MILRINONE INJ 20 MG in SODIUM CHLORIDE 0.9% INJ 80 ML IV SCH (02:00)
[2017-03-29 04:36] LABS: BASOPHIL # 0.1 TH/MM3 (0-0.2); BASOPHIL % 0.4 % (0.0-2.0); EOSINOPHIL # 0.2 TH/MM3 (0-0.4); EOSINOPHIL % 1.5 % (0.0-4.0); HEMATOCRIT 26.7 % (39.0-51.0); HEMO FLAGS DIFF FINAL; LYMPH % 8.9 % (9.0-44.0); LYMPHOCYTE # 1.1 TH/MM3 (1.0-4.8); MEAN CELL VOLUME 70.2 FL (80.0-100.0); MEAN CORPUSCULAR HGB CONC 31.3 % (32.0-36.0); MONO % 9.9 % (0.0-8.0); NEUT % 79.3 % (16.0-70.0); PLATELET COUNT 246 TH/MM3 (150-450); WHITE BLOOD COUNT 12.6 TH/MM3 (4.0-11.0)
[2017-03-29 05:11] LABS: BICARBONATE 25.9 MEQ/L (21.0-32.0); MAGNESIUM 3.1 MG/DL (1.5-2.5); POTASSIUM 4.8 MEQ/L (3.5-5.1)
[2017-03-29] MEDS: ISOSORBIDE MONONITRATE 60 MG TAB PO SCH (06:23)
[2017-03-29 07:00] VITALS: PULSE 85
[2017-03-29] MEDS: INSULIN ASPART SUPPLEMENTAL SCALE SQ SCH ×4 (08:00→21:20)
[2017-03-29] MEDS: SODIUM CHLORIDE 0.9% FLUSH 10 ML FLUSH IV FLUSH SCH (08:48)
[2017-03-29] MEDS: hydrALAZINE HCL 25 MG TAB PO SCH ×3 (09:00→17:15)
[2017-03-29] MEDS: FERROUS SULFATE 325 MG (65 MG ELEMENTAL IRON) TAB PO SCH (09:00)
[2017-03-29] MEDS: LACTULOSE SYRUP 20 GM/30 ML CUP PO SCH ×2 (09:00→21:00)
[2017-03-29] MEDS: RIVAROXABAN 15 MG TAB PO SCH (09:20)
[2017-03-29] MEDS: CHOLECALCIFEROL (VIT D3) 5000 UNIT CAP PO SCH (09:20)
[2017-03-29] MEDS: TAMSULOSIN HCL 0.4 MG CAP PO SCH (09:20)
[2017-03-29] MEDS: AMIODARONE 200 MG TAB PO SCH (09:20)
[2017-03-29] MEDS: ASPIRIN EC 81 MG TABEC PO SCH (09:20)
[2017-03-29 11:00] VITALS: PULSE 88
--- NOTE | 2017-03-29 11:00 | EKG ---
Date Performed: 03/28/2017 Time Performed: 10:12:26 PTAGE: 56 years EKG: Ventricular pacing. Pacemaker rhythm - no further analysis Abnormal ECG PREVIOUS TRACING : 03/16/2017 18.23 DOCTOR: Nicholas Watkins Interpretating Date/Time 03/29/2017 11:00:29
--- NOTE | 2017-03-29 12:19 | HHI.NPPN ---
Subjective General Problems: Anemia, Heart Disease Renal Failure: Chronic Interval History Sitting up in a chair. Having diarrhea. Renal function is better. He is non oliguric. Milrinone continues. (Alfreda Hernandez) Review of Systems General Constitutional: Fatigue (Alfreda Hernandez) Respiratory Lungs: SOB (Alfreda Hernandez) Objective Data Data Vital Signs Date Time Temp Pulse Resp B/P (MAP) Pulse Ox O2 Delivery O2 Flow Rate FiO2 03/29/17 11:00 88 03/29/17 11:00 95 Room Air 03/29/17 07:00 95 Room Air 03/29/17 07:00 85 03/29/17 03:00 98 Room Air 03/29/17 02:00 97 95/50 03/29/17 01:44 18 03/28/17 23:00 98 Room Air 03/28/17 19:00 98 Room Air 03/28/17 15:51 87 103/57 03/28/17 15:00 98.6 87 18 103/52 (69) 97 03/28/17 15:00 97 Room Air 03/28/17 15:00 83 (Alfreda Hernandez) -: 03/29/17 0415 03/29/17 0415 Tubes & Lines: Anand Drip Comment milrinone (Alfreda Hernandez) Physical Exam General Appearance: Well Developed, Well Nourished, Comfortable, Malnourished Appearance Remarks frail, cachectic (Alfreda Hernandez) Eyes Eye Exam: Pupils Equal (Alfreda Hernandez) Neck Neck Exam: Neck Supple (Alfreda Hernandez) Pulmonary Resp Exam: Breath Sounds Equal, No Distress, Decreased Bases, Diminished Breath Sounds (Alfreda Hernandez) Cardiology CV Exam: Regular, Good Perfusion, Murmur CV Remarks paced rhythm (Alfreda Hernandez) Gastrointestinal/Abdomen GI Exam: Soft, Non-Tender, Bowel Sounds Present (Alfreda Hernandez) Genitourinary Exam: Clear Urine (Alfreda Hernandez) Musculoskeletal MS Exam: Joints Intact, Good Strength, Atrophy (Alfreda Hernandez) Integumentary Skin Exam: Clear, Warm, Dry, Intact (Alfreda Hernandez) Extremeties Extremities Exam: No Edema, Pedal Pulses Palpable (Alfreda Hernandez) Neurologic Neuro Exam: Alert, Awake, Oriented, Speech Clear, Moving All Extremities (Alfreda Hernandez) Psychiatric Psych Exam: Appropriate Responses (Alfreda Hernandez) VTE Prophylaxis Device: SCDs (Alfreda Hernandez) Assessment/Plan Discussed Condition With: Patient Assessment Summary: Fluid/Volume Overload, CHF, CKD Stage III, CKD Stage IV Electrolyte Assessment: Hyponatremia Problem List: (1) Acute kidney injury superimposed on chronic kidney disease ICD Codes: N17.9 - Acute kidney failure, unspecified; N18.9 - Chronic kidney disease, unspecified Plan: He has underlying stage III to IV CKD, may have nephrosclerosis. Recent decline in renal function likely from decompensated CHF with increased renal venous pressure, cardiorenal syndrome. Renal function is improving although BUN continues to be high. Diuretics remain on hold Avoid IVF, tolerating oral fluids He is non oliguric, consider removal of anand catheter There is no urgent need for HD at this time. Given advanced heart failure he is not a candidate for renal replacement therapy. Possible transfer to tertiary facility for LVAD or heart transplant may be necessary. Avoid nephrotoxic agents. Repeat labs in AM (2) Hyponatremia ICD Codes: E87.1 - Hypo-osmolality and hyponatremia Plan: Serum sodium level improved slighlty NaCl tabs were stopped; off 3% saline He has been given tolvaptan Repeat labs (3) Chronic systolic congestive heart failure ICD Codes: I50.22 - Chronic systolic (congestive) heart failure Plan: Pending possible transfer to [place]; possible outpatient follow up at [facility] for transplant evaluation if he can be weened off milrinone Diuresis on hold. Cardiology has following Consider palliative consult. (4) Atrial fibrillation ICD Codes: I48.91 - Unspecified atrial fibrillation Plan: Rate controlled On Xarelto (5) Type 2 diabetes mellitus ICD Codes: E11.9 - Type 2 diabetes mellitus without complications Plan: Avoid Metformin. Insulin coverage, maintain blood glucose between 140 and 180 while hospitalized. (Alfreda Hernandez) Plan patient was seen and examined. Non oliguric. Creatinine is better. Not a candidate for renal replacement therapy. (Doc Salazar MD) Alfreda Hernandez Mar 29, 2017 12:19 Doc Salazar MD Mar 30, 2017 07:09
[2017-03-29 15:00] VITALS: PULSE 85
--- NOTE | 2017-03-29 15:55 | HHI.CCPN ---
Subjective Remarks/Hospital Course Hospital Course: This is a 56yM who carries a documented history of ischemic cardiomyopathy with a known EF < 20%. He has a single-ventricle AICD. He presented on 03/16 with complaints of worsening shortness of breath and MUIR which progressed to dyspnea at rest over the time course of about a month. He denies chest pain. He states that he has never had a heart attack in the past, and per our records, the last left heart catheterization was in 2006 which showed only mild disease. On admission, he had a BNP of 3300, trop 0.05, Cr 2.6 up from a baseline around 1.7 per our last records. Nephrology and cardiology were consulted. Diuresis was attempted, but despite aggressive forced diuresis, he has gained 1 kg weight since admission. An echo from 03/18 demonstrated severely reduced LV function, severe Mitral regurgitation, severe tricuspid regurgitation, pulmonary hypertension. Despite therapy, he continues to worsen and his Cr today is up to 3.8. Critical care medicine has been consulted to evaluate and manage his worsening end-organ failure. Of note, the nursing staff paged Dr. Eaton, and he stated he would be delayed until tonight in evaluating the patient , and the patient and his have requested a second opinion in his ongoing management and worsening organ dysfunction. Subjective: 03/22: feels subjectively much better. after midnight, uop increased to 100-300/ hr. Barrett placed for more accurate i/o's. patient denies SOB this AM. Cardene at 10 mg/hr. Dobutamine lowered from 7.5 mcg/kg/min to 5 mcg/kg/min overnight for hypertension concerns. Cr plateaued. RHC numbers at 06:30: HR 72. Art 119/43 (63). CVP 17. PAP 48/18 (29). PCWP 24. CO/CI 5.8/3.2. SVO2 67%. SVR 634. PVR 0.86 Howard. 03/23: continues to feel better subjectively. SOB continues to improve. uop improving with > 1L out over last 12h. However, Cr and BUN continue to rise. still requires intermittent iv hydralazine for goal sbp < 120, but off cardene now. still on bumex drip at 2 mg/hr. BNP also lower for the first time today, and weight continues to improve, although slowly. RHC numbers at 06:20: HR 72. Art 117/52 (77). CVP 20. PAP 52/16 (30). PCWP 20. CO/CI: 5.4/3. SVR 845. PVR 1.8 Howard. 03/24: added milrinone at 0.2 mcg/kg/min yesterday afternoon. overnight excellent diuresis and started significant volume removal. net -4L/24h and filling pressures starting to improve significantly. PCWP still 22, but CVP improved to 5 and RV function significantly better as evidenced by rising PAS and decreasing PAD. was 30s/20s, now 50s/10s. First sign of possible renal recovery and Cr plateaued and possibly early downtrending. Contacted [facility] and they have no records of ever seeing or evaluating patient in any [place] [facility]. Further talked to the patient and and they have never seen any throw out clerk outside of the [place] area for any additional work-up. RHC numbers at 06:10: HR 85. Art 122/58 (84). CVP 5. PAP 48/12 (30). PCWP 22. CO /CI 5.2/29. SVR 1215. PVR 1.5 Howard 03/25: Hgb concentrating, bun 105, tachycardia rising. PCWP 14 and PA waveform flattening. Will back off on bumex to 1 mg/hr. Continue small amounts of albumin. Keep K > 4.2, Mag > 2.0. 03/26: delayed note entry: seen around 06:20am. sodium continues to downtrend to 123 today despite being further negative with filling pressures that come close to representing dry weight (wedge down to 12-14). hold bumex drip. given persistent FELECIA and likely ATN, hyponatremia may have to do with poor renal ability to resorb sodium in the face of forced diuresis and tubular injury. unlikely to be related to total body water overload given improving indices with worsening sodium. given significant drop from yesterday to today, will be forced to start 3% nacl. otherwise patient without complaint. 03/27: continues ongoing diuresis. sodium still 125. gave dose of tolvaptan. would prefer to avoid additional 3%. endorses diarrhea which is new. wbc uptrending, but afebrile. nontoxic appearing. 03/28: discussed case at length with [facility] HF group: too high risk given acute organ dysfunction for urgent mechanical support or transplant work-up. they agree if we can get him safely off inotropes and out of the hospital they will see him in HF clinic at [facility], but have denied transfer for acute work-up. patient continues to diurese on milrinone. sodium stable. redose tolvaptan today. Cr continues to improve. needs aggressive PT and a dietary plan to include anabolism and weight gain. 03/29: Have reduced milrinone to 0.1 idalia program per KG per minute since a.m., tolerating well will discontinue at 4 PM. Urine output is being maintained. Last 24 hours head 4.5 L out creatinine improved to 2.7. Sodium at 126. On further questioning he gives a history of heavy alcohol intake. He used to drink 12 pack beers daily until 6 months ago when he decided to cut down to 2 beers daily. 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 Will supplement multivitamin and thiamine Objective Vital Signs Date Time Temp Pulse Resp B/P (MAP) Pulse Ox O2 Delivery O2 Flow Rate FiO2 03/29/17 15:00 85 03/29/17 15:00 97 Room Air 03/29/17 02:00 95/50 03/29/17 01:44 18 03/28/17 15:00 98.6 03/26/17 19:00 1.00 Intake and Output 03/29/17 03/29/17 03/30/17 08:00 16:00 00:00 Intake Total 330 ml Output Total 2020 ml Balance -1690 ml Result Diagram: 03/29/17 0415 03/29/17 0415 Imaging Last Impressions Chest X-Ray 03/18/17 0000 Signed Impressions: Service Date/Time: Saturday, March 18, 2017 14:58 - CONCLUSION: 1. Cardiomegaly with prominence and indistinctness of the interstitial markings characteristic of some degree of vascular congestion/CHF. 2. No confluent infiltrate or effusion. Reynold Case MD Objective Remarks gen: middle-aged male, lying in bed. breathing comfortably. heent: perrl. nc. at. mucous membranes moist. neck: - jvd today . right IJ cordis chest: normal respiratory rate. on room air today. cv: normal rate, irregularly irregular rhythm. afib by tele. intermittently paced. abd: soft, nontender, nondistended. no guarding extr: no edema today. distal pulses 2+. warm and well-perfused. neuro: RASS 0. GCS 15. follows commands. Procedures none A/P Assessment and Plan Assessment: 56yM with history of severe cardiomyopathy presents with decompensated congestive heart failure with worsening end-organ damage and cardiogenic shock. Clinically improving. Cr continues to downtrend. hyponatremia persists, likely solute depleted. denied transfer to [facility]. Dr. Voss consulted. leave milrinone today. Wean to [place] inotropic therapy. will need inpatient rehab, and at this point will need aggressive PT twice a day. Dietary consult and plans to add muslce mass and nutrition. Need work-up for VAD/Transplant, however his CM may be related to his past heavy drinking (12 beers daily until 6 month ago, 2 beers daily now) Active Problems: Cardiogenic Shock - resolving Severe mitral regurgitation Severe cardiomyopathy, ischemic vs. nonischemic ? alcohol induced Severe acute congestive heart failure exacerbation, likely combination of systolic and valvulopathy - improving. Cor pulmonale Pulmonary Edema - resolved. Acute hypoxemia - improved Acute Severe hypokalemia Acute kidney injury on Chronic Kidney Disease Stage III - improving. Hyponatremia Alcohol abuse/dependence Plan: On milrinone at 0.1 mcg/kg/min. DC at 4 PM continue cvp monitoring holding bumex drip but with excellent diuresis prn albumin 25% to maintain intravascular volume. Start oral bumex regimen soon. s/p tolvaptan 15mg x 1. serial sodiums. denied transfer to [facility] Consulted Dr. Voss for EP assistance. Aggressive K, Mg replacement serial BMP 1L fluid restriction keep Barrett today for accurate hourly i/o's. PRN hydralazine and Cardene for goal sbp < 120. [address] [facility] to rule out ischemia, but will hold for now given severe kidney injury. CM may be related to his alcohol abuse (12 beers daily until 6 month ago, 2 beers daily now) Supplement MVI, Thiamine daily CMP, coags with regards to his mitral valve: likely functional from severe LV cavity dilation. repeat echo 03/26 with persistence of severe MR, but qualitatively much improved from the wide-open blowing MR seen on 03/21 echo. Carlos WELCH Cordis: 03/21. remain today.-DC after off Milrinone for at least 24 hours PT, OT consults. aggressive PT. needs inpatient rehab when improved. dietary consult: needs aggressive plan to improve nutritional status if he is ever to be considered for mechanical support. Zoey Ellis MD Mar 29, 2017 15:55
[2017-03-29] MEDS: THIAMINE INJ 100 MG in SODIUM CHLORIDE 0.9% INJ 100 ML IV SCH (17:15)
[2017-03-29] MEDS: MULTIVITAMIN TAB PO SCH (17:15)
[2017-03-29 19:00] VITALS: PULSE 83
[2017-03-29 20:00] VITALS: BP 96/45; PULSE 85; RESP 24; TEMP 98.4; O2SAT 100
[2017-03-29] MEDS: EZETIMIBE 10 MG TAB PO SCH (21:20)
[2017-03-29 23:00] VITALS: PULSE 86
[2017-03-30] VITALS: BP 101/66; PULSE 85; RESP 24; TEMP 98; O2SAT 95
[2017-03-30] MEDS: ACETAMINOPHEN 325 MG TAB PO PRN (00:44)
[2017-03-30 03:30] VITALS: PULSE 82
[2017-03-30 04:00] VITALS: BP 109/53; PULSE 90; RESP 24; TEMP 98.3; O2SAT 100
--- NOTE | 2017-03-30 05:31 | RADRPT ---
EXAM DATE/TIME: 03/30/2017 04:21 [place] COMPARISON: CHEST SINGLE AP, March 21, 2017, 17:51. INDICATIONS : Evaluate for pneumonia MEDICAL HISTORY : Congestive heart failure. Hypercholesterolemia. Hypertension. AFIB. SURGICAL HISTORY : Pacemaker. ENCOUNTER: Subsequent ACUITY: 4 - 6 days PAIN SCORE: 7/10 LOCATION: Bilateral chest FINDINGS: Mild cardiomegaly again noted. There is mild retrocardiac consolidation at the left base. No large ef fusion. No pneumothorax. No acute pulmonary edema seen. There is a right internal jugular central venous catheter with tip in the superior vena cava. Previou sly seen right arm PICC has been removed. Cardiac pacer/defibrillator again noted. CONCLUSION: Mild retrocardiac consolidation and mild cardiomegaly. No acute edema. Caleb Hernandez MD on March 30, 2017 at 5:29 Board Certified Radiologist. This report was verified electronically.
[2017-03-30 06:15] LABS: AUTOMATED NEUTROPHIL # 9.9 TH/MM3 (1.8-7.7); BASOPHIL # 0.1 TH/MM3 (0-0.2); BASOPHIL % 0.6 % (0.0-2.0); EOSINOPHIL # 0.1 TH/MM3 (0-0.4); EOSINOPHIL % 0.9 % (0.0-4.0); HEMATOCRIT 25.6 % (39.0-51.0); HEMO FLAGS DIFF FINAL; LYMPH % 10.5 % (9.0-44.0); LYMPHOCYTE # 1.3 TH/MM3 (1.0-4.8); MEAN CELL VOLUME 70.2 FL (80.0-100.0); MEAN CORPUSCULAR HEMOGLOBIN 22.2 PG (27.0-34.0); MEAN CORPUSCULAR HGB CONC 31.6 % (32.0-36.0); MONO % 9.7 % (0.0-8.0); NEUT % 78.3 % (16.0-70.0); PLATELET COUNT 244 TH/MM3 (150-450); RED BLOOD COUNT 3.65 MIL/MM3 (4.50-5.90); RED CELL DISTRIBUTION WIDTH 21.6 % (11.6-17.2); WHITE BLOOD COUNT 12.7 TH/MM3 (4.0-11.0)
[2017-03-30] MEDS: ISOSORBIDE MONONITRATE 60 MG TAB PO SCH (06:35)
[2017-03-30 06:41] LABS: ALKALINE PHOSPHATASE 75 U/L (45-117); ALT (GPT) 36 U/L (12-78); ANION GAP 11 MEQ/L (5-15); AST (GOT) 33 U/L (15-37); BICARBONATE 23.8 MEQ/L (21.0-32.0); BLOOD UREA NITROGEN 99 MG/DL (7-18); CHLORIDE 92 MEQ/L (98-107); GLOMERULAR FILTRATION RATE 36 ML/MIN (>89); MAGNESIUM 2.7 MG/DL (1.5-2.5); POTASSIUM 3.2 MEQ/L (3.5-5.1); SODIUM (NA) 127 MEQ/L (136-145); TOTAL BILIRUBIN ADULT 0.6 MG/DL (0.2-1.0)
[2017-03-30 07:00] VITALS: BP 103/50; PULSE 82; PULSE 84; RESP 22; TEMP 98.4; O2SAT 98
[2017-03-30] MEDS ORDERED: POTASSIUM CHLORIDE 25 MEQ EFFERVESCENT TAB PO ONE (07:30)
[2017-03-30] MEDS: INSULIN ASPART SUPPLEMENTAL SCALE SQ SCH (08:00)
--- NOTE | 2017-03-30 08:30 | HHI.CCPN ---
Subjective Remarks/Hospital Course Hospital Course: This is a 56yM who carries a documented history of ischemic cardiomyopathy with a known EF < 20%. He has a single-ventricle AICD. He presented on 03/16 with complaints of worsening shortness of breath and MUIR which progressed to dyspnea at rest over the time course of about a month. He denies chest pain. He states that he has never had a heart attack in the past, and per our records, the last left heart catheterization was in 2006 which showed only mild disease. On admission, he had a BNP of 3300, trop 0.05, Cr 2.6 up from a baseline around 1.7 per our last records. Nephrology and cardiology were consulted. Diuresis was attempted, but despite aggressive forced diuresis, he has gained 1 kg weight since admission. An echo from 03/18 demonstrated severely reduced LV function, severe Mitral regurgitation, severe tricuspid regurgitation, pulmonary hypertension. Despite therapy, he continues to worsen and his Cr today is up to 3.8. Critical care medicine has been consulted to evaluate and manage his worsening end-organ failure. Of note, the nursing staff paged Dr. Eaton, and he stated he would be delayed until tonight in evaluating the patient , and the patient and his have requested a second opinion in his ongoing management and worsening organ dysfunction. Subjective: 03/22: feels subjectively much better. after midnight, uop increased to 100-300/ hr. Barrett placed for more accurate i/o's. patient denies SOB this AM. Cardene at 10 mg/hr. Dobutamine lowered from 7.5 mcg/kg/min to 5 mcg/kg/min overnight for hypertension concerns. Cr plateaued. RHC numbers at 06:30: HR 72. Art 119/43 (63). CVP 17. PAP 48/18 (29). PCWP 24. CO/CI 5.8/3.2. SVO2 67%. SVR 634. PVR 0.86 Howard. 03/23: continues to feel better subjectively. SOB continues to improve. uop improving with > 1L out over last 12h. However, Cr and BUN continue to rise. still requires intermittent iv hydralazine for goal sbp < 120, but off cardene now. still on bumex drip at 2 mg/hr. BNP also lower for the first time today, and weight continues to improve, although slowly. RHC numbers at 06:20: HR 72. Art 117/52 (77). CVP 20. PAP 52/16 (30). PCWP 20. CO/CI: 5.4/3. SVR 845. PVR 1.8 Howard. 03/24: added milrinone at 0.2 mcg/kg/min yesterday afternoon. overnight excellent diuresis and started significant volume removal. net -4L/24h and filling pressures starting to improve significantly. PCWP still 22, but CVP improved to 5 and RV function significantly better as evidenced by rising PAS and decreasing PAD. was 30s/20s, now 50s/10s. First sign of possible renal recovery and Cr plateaued and possibly early downtrending. Contacted [facility] and they have no records of ever seeing or evaluating patient in any [facility]. Further talked to the patient and and they have never seen any box liner outside of the [place] area for any additional work-up. RHC numbers at 06:10: HR 85. Art 122/58 (84). CVP 5. PAP 48/12 (30). PCWP 22. CO /CI 5.2/29. SVR 1215. PVR 1.5 Howard 03/25: Hgb concentrating, bun 105, tachycardia rising. PCWP 14 and PA waveform flattening. Will back off on bumex to 1 mg/hr. Continue small amounts of albumin. Keep K > 4.2, Mag > 2.0. 03/26: delayed note entry: seen around 06:20am. sodium continues to downtrend to 123 today despite being further negative with filling pressures that come close to representing dry weight (wedge down to 12-14). hold bumex drip. given persistent FELECIA and likely ATN, hyponatremia may have to do with poor renal ability to resorb sodium in the face of forced diuresis and tubular injury. unlikely to be related to total body water overload given improving indices with worsening sodium. given significant drop from yesterday to today, will be forced to start 3% nacl. otherwise patient without complaint. 03/27: continues ongoing diuresis. sodium still 125. gave dose of tolvaptan. would prefer to avoid additional 3%. endorses diarrhea which is new. wbc uptrending, but afebrile. nontoxic appearing. 03/28: discussed case at length with [facility] HF group: too high risk given acute organ dysfunction for urgent mechanical support or transplant work-up. they agree if we can get him safely off inotropes and out of the hospital they will see him in HF clinic at [facility], but have denied transfer for acute work-up. patient continues to diurese on milrinone. sodium stable. redose tolvaptan today. Cr continues to improve. needs aggressive PT and a dietary plan to include anabolism and weight gain. 03/29: Have reduced milrinone to 0.1 idalia program per KG per minute since a.m., tolerating well will discontinue at 4 PM. Urine output is being maintained. Last 24 hours head 4.5 L out creatinine improved to 2.7. Sodium at 126. On further questioning he gives a history of heavy alcohol intake. He used to drink 12 pack beers daily until 6 months ago when he decided to cut down to 2 beers daily. 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 Will supplement multivitamin and thiamine 03/30: Weaned off milrinone yesterday tolerating well clinically. Urine output approximately 3 L in 24 hours. Creatinine has improved to 2.3 from 2.7, BUN 99 from 117. Patient insists on going home today AMA. He understands the consequences of leaving AGAINST MEDICAL ADVICE. He states that he is fed up with all treatments and evaluation. He also feels that evaluation for transplant and LVAD is taking too much time. He wants to go home and let nature takes its course, states he is ready to . I explained to him transplant evaluation is a lengthy process and his active alcohol use may require him to be sober for at least 6 months. He again he is not interested in any further treatment and wants to go home AMA. he is alert oriented, competent and not depressed in my opinion. He is willing to talk to Hospice Objective Vital Signs Date Time Temp Pulse Resp B/P (MAP) Pulse Ox O2 Delivery O2 Flow Rate FiO2 03/30/17 04:00 98.3 90 24 109/53 (71) 100 03/30/17 03:45 Room Air 03/26/17 19:00 1.00 Intake and Output 03/30/17 03/30/17 03/31/17 08:00 16:00 00:00 Intake Total 720 ml Output Total 1625 ml Balance -905 ml Result Diagram: 03/30/17 0545 03/30/17 0545 Imaging Last Impressions Chest X-Ray 03/18/17 0000 Signed Impressions: Service Date/Time: Monday, March 18, 2017 14:58 - CONCLUSION: 1. Cardiomegaly with prominence and indistinctness of the interstitial markings characteristic of some degree of vascular congestion/CHF. 2. No confluent infiltrate or effusion. Reynold Case MD Objective Remarks gen: middle-aged male, lying in bed. breathing comfortably. heent: perrl. nc. at. mucous membranes moist. neck: - jvd today . right IJ cordis -just removed chest: normal respiratory rate. on room air cv: normal rate, irregularly irregular rhythm. afib by tele. intermittently paced. abd: soft, nontender, nondistended. no guarding extr: no edema today. distal pulses 2+. warm and well-perfused. neuro: RASS 0. GCS 15. follows commands. Procedures none A/P Assessment and Plan Assessment: 56yM with history of severe cardiomyopathy presents with decompensated congestive heart failure with worsening end-organ damage and cardiogenic shock. Clinically improving. Cr continues to downtrend. hyponatremia persists, likely solute depleted. denied transfer to [facility]. Dr. Voss consulted. leave milrinone today. Wean to DC inotropic therapy. will need inpatient rehab, and at this point will need aggressive PT twice a day. Dietary consult and plans to add muslce mass and nutrition. Need work-up for VAD/Transplant, however his CM may be related to his past heavy drinking (12 beers daily until 6 month ago, 2 beers daily now) Active Problems: Cardiogenic Shock - resolved Severe mitral regurgitation Severe cardiomyopathy, ischemic vs. nonischemic ? alcohol induced Severe acute congestive heart failure exacerbation, likely combination of systolic and valvulopathy - improving. Cor pulmonale Pulmonary Edema - resolved. Acute hypoxemia - improved Acute Severe hypokalemia Acute kidney injury on Chronic Kidney Disease Stage III - improving. Hyponatremia Alcohol abuse/dependence Plan: Off milrinone. DCd at 4 PM 03/29/17 Creatinine has improved to 2.3 from 2.7, BUN 99 from 117. holding bumex drip but with excellent diuresis prn albumin 25% to maintain intravascular volume. Start oral bumex regimen soon. s/p tolvaptan 15mg x 1. serial sodiums. denied transfer to [facility] Consulted Dr. Voss for EP assistance-no further intervention Aggressive K, Mg replacement 1L fluid restriction keep Barrett today for accurate hourly i/o's. PRN hydralazine and Cardene for goal sbp < 120. [facility] to rule out ischemia, hold for now given severe kidney injury. CM may be related to his alcohol abuse (12 beers daily until 6 month ago, 2 beers daily now) Supplement MVI, Thiamine daily CMP, coags with regards to his mitral valve: likely functional from severe LV cavity dilation. repeat echo 03/26 with persistence of severe MR, but qualitatively much improved from the wide-open blowing MR seen on 03/21 echo. R IJ Cordis: 03/21. DC d today level 2 Patient insists on going home today AMA and understands the consequences including . He states that he is fed up with all treatments and evaluation and feels that evaluation for transplant and LVAD is taking too much time. He wants to go home and let nature takes its course, states he is ready to . I explained to him transplant evaluation is a lengthy process and his active alcohol use may require him to be sober for at least 6 months. He again he is not interested in any further treatment and wants to go home. He is alert oriented, competent and not depressed in my opinion. He is willing to talk to Hospice. Await hospice evaluation, otherwise he will sign out Zoey Sims MD Mar 30, 2017 08:30
[2017-03-30] MEDS: FERROUS SULFATE 325 MG (65 MG ELEMENTAL IRON) TAB PO SCH (09:00)
[2017-03-30] MEDS: CHOLECALCIFEROL (VIT D3) 5000 UNIT CAP PO SCH (09:00)
[2017-03-30] MEDS: THIAMINE INJ 100 MG in SODIUM CHLORIDE 0.9% INJ 100 ML IV SCH (09:00)
[2017-03-30] MEDS: AMIODARONE 200 MG TAB PO SCH (09:00)
[2017-03-30] MEDS: RIVAROXABAN 15 MG TAB PO SCH (09:00)
[2017-03-30] MEDS: ASPIRIN EC 81 MG TABEC PO SCH (09:00)
[2017-03-30] MEDS: LACTULOSE SYRUP 20 GM/30 ML CUP PO SCH (09:00)
[2017-03-30] MEDS: hydrALAZINE HCL 25 MG TAB PO SCH (09:00)
[2017-03-30] MEDS: SODIUM CHLORIDE 0.9% FLUSH 10 ML FLUSH IV FLUSH SCH (09:00)
[2017-03-30] MEDS: TAMSULOSIN HCL 0.4 MG CAP PO SCH (09:00)
[2017-03-30] MEDS: MULTIVITAMIN TAB PO SCH (09:00)
[2017-03-30 09:31] LABS: TRANSFERRIN IRON PROFILE 175 MG/DL (200-360)
[2017-03-30 11:00] VITALS: BP 107/53; PULSE 95; RESP 22; TEMP 98; O2SAT 94
[2017-03-30] MEDS ORDERED: XARE15TA PO (13:15)
[2017-03-30] MEDS ORDERED: ISOS60TA PO (13:15)
--- NOTE | 2017-03-30 13:20 | HHI.DS ---
Discharge Summary Admission Date Mar 18, 2017 at 10:52 Admitting Diagnosis CHF exacerbation, acute on chronic renal failure (1) Acute on chronic systolic CHF (congestive heart failure), NYHA class 4 ICD Code: I50.23 - Acute on chronic systolic (congestive) heart failure (2) Acute renal failure superimposed on stage 4 chronic kidney disease ICD Code: N17.9 - Acute kidney failure, unspecified; N18.4 - Chronic kidney disease, stage 4 (severe) (3) A-fib ICD Code: I48.91 - Unspecified atrial fibrillation (4) DM (diabetes mellitus) ICD Code: E11.9 - DM (diabetes mellitus) Status: Chronic (5) CKD (chronic kidney disease) stage 3, GFR 30-59 ml/min ICD Code: N18.3 - CKD (chronic kidney disease) stage 3, GFR 30-59 ml/min Status: Acute (6) Mitral regurgitation ICD Code: I34.0 - Mitral regurgitation Status: Chronic (7) Type 2 diabetes mellitus ICD Code: E11.9 - Type 2 diabetes mellitus without complications (8) Atrial fibrillation ICD Code: I48.91 - Unspecified atrial fibrillation (9) KIRTI (iron deficiency anemia) ICD Code: D50.9 - KIRTI (iron deficiency anemia) Status: Acute (10) Nonischemic dilated cardiomyopathy ICD Code: I42.9 - Nonischemic dilated cardiomyopathy Status: Acute Brief History This is a 56-year-old male with a PMH of HTN, Hyperlipidemia, CAD, CHF (Echo w/ EF 35-40%), AICD, Afib on Coumadin and CKD Stage III who presented to the ER w/ complaints of SOB x2-3 days. States symptoms worse w/ exertion. Denies chest pain, cough, fever or sick contacts. On arrival, BP 120/80, HR 86 , O2 sat 98% on RA, Temp 99.0. CBC unremarkable except for diabetes 11.2. Creatinine 2.62, producing 1.72 on 01/31/15. BNP 3302. Troponin 0.05. INR 1.5. CXR with cardiomegaly and pulmonary vascular engorgement, no infiltrates or effusions. S/p Lasix 40mg IV in ER. CBC/BMP: 03/30/17 0545 03/30/17 0545 Significant Findings Laboratory Tests Test 03/27/17 14:08 03/28/17 05:00 03/29/17 04:15 03/30/17 05:45 Sodium Level 125 MEQ/L (136-145) 125 MEQ/L (136-145) 126 MEQ/L (136-145) 127 MEQ/L (136-145) White Blood Count 14.7 TH/MM3 (4.0-11.0) 12.6 TH/MM3 (4.0-11.0) 12.7 TH/MM3 (4.0-11.0) Red Blood Count 3.98 MIL/MM3 (4.50-5.90) 3.80 MIL/MM3 (4.50-5.90) 3.65 MIL/MM3 (4.50-5.90) Hemoglobin 8.9 GM/DL (13.0-17.0) 8.4 GM/DL (13.0-17.0) 8.1 GM/DL (13.0-17.0) Hematocrit 28.1 % (39.0-51.0) 26.7 % (39.0-51.0) 25.6 % (39.0-51.0) Mean Corpuscular Volume 70.4 FL (80.0-100.0) 70.2 FL (80.0-100.0) 70.2 FL (80.0-100.0) Mean Corpuscular Hemoglobin 22.3 PG (27.0-34.0) 22.0 PG (27.0-34.0) 22.2 PG (27.0-34.0) Mean Corpuscular Hemoglobin Concent 31.7 % (32.0-36.0) 31.3 % (32.0-36.0) 31.6 % (32.0-36.0) Red Cell Distribution Width 22.3 % (11.6-17.2) 22.0 % (11.6-17.2) 21.6 % (11.6-17.2) Blood Urea Nitrogen 112 MG/DL (7-18) 117 MG/DL (7-18) 99 MG/DL (7-18) Creatinine 2.88 MG/DL (0.60-1.30) 2.70 MG/DL (0.60-1.30) 2.28 MG/DL (0.60-1.30) Random Glucose 116 MG/DL (74-106) 131 MG/DL (74-106) 119 MG/DL (74-106) Magnesium Level 3.3 MG/DL (1.5-2.5) 3.1 MG/DL (1.5-2.5) 2.7 MG/DL (1.5-2.5) Potassium Level 3.1 MEQ/L (3.5-5.1) 3.2 MEQ/L (3.5-5.1) Chloride Level 88 MEQ/L (98-107) 92 MEQ/L (98-107) 92 MEQ/L (98-107) Estimat Glomerular Filtration Rate 28 ML/MIN (>89) 30 ML/MIN (>89) 36 ML/MIN (>89) Neutrophils (%) (Auto) 79.3 % (16.0-70.0) 78.3 % (16.0-70.0) Lymphocytes (%) (Auto) 8.9 % (9.0-44.0) Monocytes (%) (Auto) 9.9 % (0.0-8.0) 9.7 % (0.0-8.0) Neutrophils # (Auto) 10.0 TH/MM3 (1.8-7.7) 9.9 TH/MM3 (1.8-7.7) Monocytes # (Auto) 1.2 TH/MM3 (0-0.9) 1.2 TH/MM3 (0-0.9) Phosphorus Level 5.1 MG/DL (2.5-4.9) Albumin 2.9 GM/DL (3.4-5.0) Iron Level 15 MCG/DL (65-175) Total Iron Binding Capacity 245 MCG/DL (250-450) Percent Iron Saturation 6.1 % (20-50) Imaging reviewed PE at Discharge gen: middle-aged male, lying in bed. breathing comfortably. heent: perrl. nc. at. mucous membranes moist. neck: - jvd today . right IJ cordis -just removed chest: normal respiratory rate. on room air cv: normal rate, irregularly irregular rhythm. afib by tele. intermittently paced. abd: soft, nontender, nondistended. no guarding extr: no edema today. distal pulses 2+. warm and well-perfused. neuro: RASS 0. GCS 15. follows commands. Procedures Transfer Summary See hospital course Hospital Course Hospital Course: This is a 56yM who carries a documented history of ischemic cardiomyopathy with a known EF < 20%. He has a single-ventricle AICD. He presented on 03/16 with complaints of worsening shortness of breath and MUIR which progressed to dyspnea at rest over the time course of about a month. He denies chest pain. He states that he has never had a heart attack in the past, and per our records, the last left heart catheterization was in 2006 which showed only mild disease. On admission, he had a BNP of 3300, trop 0.05, Cr 2.6 up from a baseline around 1.7 per our last records. Nephrology and cardiology were consulted. Diuresis was attempted, but despite aggressive forced diuresis, he has gained 1 kg weight since admission. An echo from 03/18 demonstrated severely reduced LV function, severe Mitral regurgitation, severe tricuspid regurgitation, pulmonary hypertension. Despite therapy, he continues to worsen and his Cr today is up to 3.8. Critical care medicine has been consulted to evaluate and manage his worsening end-organ failure. Of note, the nursing staff paged Dr. Eaton, and he stated he would be delayed until tonight in evaluating the patient , and the patient and his have requested a second opinion in his ongoing management and worsening organ dysfunction. 03/22: feels subjectively much better. after midnight, uop increased to 100-300/ hr. Barrett placed for more accurate i/o's. patient denies SOB this AM. Cardene at 10 mg/hr. Dobutamine lowered from 7.5 mcg/kg/min to 5 mcg/kg/min overnight for hypertension concerns. Cr plateaued. RHC numbers at 06:30: HR 72. Art 119/43 (63). CVP 17. PAP 48/18 (29). PCWP 24. CO/CI 5.8/3.2. SVO2 67%. SVR 634. PVR 0.86 Howard. 03/23: continues to feel better subjectively. SOB continues to improve. uop improving with > 1L out over last 12h. However, Cr and BUN continue to rise. still requires intermittent iv hydralazine for goal sbp < 120, but off cardene now. still on bumex drip at 2 mg/hr. BNP also lower for the first time today, and weight continues to improve, although slowly. RHC numbers at 06:20: HR 72. Art 117/52 (77). CVP 20. PAP 52/16 (30). PCWP 20. CO/CI: 5.4/3. SVR 845. PVR 1.8 Howard. 03/24: added milrinone at 0.2 mcg/kg/min yesterday afternoon. overnight excellent diuresis and started significant volume removal. net -4L/24h and filling pressures starting to improve significantly. PCWP still 22, but CVP improved to 5 and RV function significantly better as evidenced by rising PAS and decreasing PAD. was 30s/20s, now 50s/10s. First sign of possible renal recovery and Cr plateaued and possibly early downtrending. Contacted [facility] and they have no records of ever seeing or evaluating patient in any [facility] er. 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 RHC numbers at 06:10: HR 85. Art 122/58 (84). CVP 5. PAP 48/12 (30). PCWP 22. CO /CI 5.2/29. SVR 1215. PVR 1.5 Howard 03/25: Hgb concentrating, bun 105, tachycardia rising. PCWP 14 and PA waveform flattening. Will back off on bumex to 1 mg/hr. Continue small amounts of albumin. Keep K > 4.2, Mag > 2.0. 03/26: delayed note entry: seen around 06:20am. sodium continues to downtrend to 123 today despite being further negative with filling pressures that come close to representing dry weight (wedge down to 12-14). hold bumex drip. given persistent FELECIA and likely ATN, hyponatremia may have to do with poor renal ability to resorb sodium in the face of forced diuresis and tubular injury. unlikely to be related to total body water overload given improving indices with worsening sodium. given significant drop from yesterday to today, will be forced to start 3% nacl. otherwise patient without complaint. 03/27: continues ongoing diuresis. sodium still 125. gave dose of tolvaptan. would prefer to avoid additional 3%. endorses diarrhea which is new. wbc uptrending, but afebrile. nontoxic appearing. 03/28: discussed case at length with [facility] HF group: too high risk given acute organ dysfunction for urgent mechanical support or transplant work-up. they agree if we can get him safely off inotropes and out of the hospital they will see him in HF clinic at [facility], but have denied transfer for acute work-up. patient continues to diurese on milrinone. sodium stable. redose tolvaptan today. Cr continues to improve. needs aggressive PT and a dietary plan to include anabolism and weight gain. 03/29: Have reduced milrinone to 0.1 idalia program per KG per minute since a.m., tolerating well will discontinue at 4 PM. Urine output is being maintained. Last 24 hours head 4.5 L out creatinine improved to 2.7. Sodium at 126. On further questioning he gives a history of heavy alcohol intake. He used to drink 12 pack beers daily until 6 months ago when he decided to cut down to 2 beers daily. 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 Will supplement multivitamin and thiamine 03/30: Weaned off milrinone yesterday tolerating well clinically. Urine output approximately 3 L in 24 hours. Creatinine has improved to 2.3 from 2.7, BUN 99 from 117. Patient insists on going home today AMA. He understands the consequences of leaving AGAINST MEDICAL ADVICE. He states that he is fed up with all treatments and evaluation. He also feels that evaluation for transplant and LVAD is taking too much time. He wants to go home and let nature takes its course, states he is ready to . I explained to him transplant evaluation is a lengthy process and his active alcohol use may require him to be sober for at least 6 months. He again he is not interested in any further treatment and wants to go home AMA. he is alert oriented, competent and not depressed in my opinion. He is willing to talk to Hospice I was updated by KESHAV Pearlta that patient has decided to go for hospice care center at [facility]. I have placed discharge orders. I recommend continuing his home cardiac medications. But I doubt patient will comply Pt Condition on Discharge: Stable Discharge Disposition: Hospice/Med Facility Discharge Instructions DIET: Follow Instructions for: Heart Healthy Diet Activities you can perform: See Additionl Instruction Other Activity Instructions: Per hospice New Medications: Isosorbide Mononitrate ER (Isosorbide Mononitrate ER) 60 Mg Tab 60 MG PO DAILY@07 for heart failure MDD 60 for 30 Days, TAB Rivaroxaban (Xarelto) 15 Mg Tab 15 MG PO DAILY for Atrial fibrillation MDD 15 for 30 Days, #30 TAB 0 Refills Continued Medications: Amiodarone (Amiodarone) 200 Mg Tab 200 MG PO DAILY for Regulate Heart Beat, #30 TAB [address] (Aspirin EC) 81 Mg Tabdr 81 MG PO DAILY, TAB 0 Refills Carvedilol (Carvedilol) 6.25 Mg Tab 6.25 MG PO BID, #60 TAB 0 Refills Cholecalciferol (Vitamin D3) 1,000 Unit Tab 5000 UNITS PO DAILY for Nutritional Supplement, #1 BOTTLE 0 Refills Diltiazem (Cardizem) 60 Mg Tab 180 MG PO DAILY for Angina, #120 TAB 0 Refills Ezetimibe (Ezetimibe) 10 Mg Tab 10 MG PO HS, #30 TAB 0 Refills Ferrous Sulfate (Ferrous Sulfate) 325 Mg (65 Mg Iron) Tablet 325 MG PO DAILY for Nutritional Supplement, #30 TAB 0 Refills Magnesium Oxide (Magnesium Oxide) 400 Mg Tab 400 MG PO DAILY for Nutritional Supplement, TAB 0 Refills Megestrol Acetate (Megestrol Acetate) 400 Mg/10 Ml (10 Ml) Oral.susp 400 MG PO DIRECTED Pregabalin (Lyrica) 50 Mg Cap 50 MG PO BID, #60 CAP 0 Refills Tamsulosin (Tamsulosin) 0.4 Mg Cap 0.4 MG PO DAILY for Manage Prostate Problems, #30 CAP 0 Refills Discontinued Medications: Rivaroxaban (Xarelto) 20 Mg Tab 20 MG PO DAILY for Blood Clot Prevention, TAB 0 Refills Zoey Ellis MD Mar 30, 2017 13:20
[2017-03-30 15:00] VITALS: BP 111/59; PULSE 83; RESP 24; TEMP 98.2; O2SAT 96
[2017-03-30] MEDS ORDERED: BUMETANIDE 1 MG TAB PO SCH (21:00)
== END 2017-03-30 17:47 | disposition hospice, inpatient (51) | DRG 291 ==
LOC: NEPC 17:36 → NEDA 20:48 → NEPFCDU 21:56 → OBSVTOIN 03-18 10:52 → HCIS 03-18 14:12 → UNDODISIN 03-21 15:32 → HCVI 03-21 15:41 → HCPC 03-25 15:05
PROVIDERS: ADMIT Internal Medicine; ATTEND Internal Medicine Critical Care Medicine
PROC: 05HM33Z Insertion of Infusion Device into Right Internal Jugular Vein, Percutaneous Approach (ICD-10-PCS; principal; 2017-03-21)
PROC: 02HQ32Z Insertion of Monitoring Device into Right Pulmonary Artery, Percutaneous Approach (ICD-10-PCS; 2017-03-21)
PROC: 4B02XTZ Measurement of Cardiac Defibrillator, External Approach (ICD-10-PCS; 2017-03-21)
DX: I13.0 Hypertensive heart and chronic kidney disease with heart failure and stage 1 through stage 4 chronic kidney disease, or unspecified chronic kidney disease (principal); I50.23 Acute on chronic systolic (congestive) heart failure; R57.0 Cardiogenic shock; N17.0 Acute kidney failure with tubular necrosis; I27.29 Other secondary pulmonary hypertension; E87.3 Alkalosis; R64 Cachexia; E11.22 Type 2 diabetes mellitus with diabetic chronic kidney disease; E87.1 Hypo-osmolality and hyponatremia; Z68.1 Body mass index [BMI] 19.9 or less, adult; I27.81 Cor pulmonale (chronic); N18.3 Chronic kidney disease, stage 3 (moderate); I08.1 Rheumatic disorders of both mitral and tricuspid valves; D64.9 Anemia, unspecified; E78.5 Hyperlipidemia, unspecified; E87.6 Hypokalemia; I48.2 Chronic atrial fibrillation; I50.84 End stage heart failure; I48.0 Paroxysmal atrial fibrillation; R09.02 Hypoxemia; I42.0 Dilated cardiomyopathy; I42.6 Alcoholic cardiomyopathy; F10.21 Alcohol dependence, in remission; Z51.5 Encounter for palliative care; Z95.810 Presence of automatic (implantable) cardiac defibrillator; Z86.73 Personal history of transient ischemic attack (TIA), and cerebral infarction without residual deficits; Z79.84 Long term (current) use of oral hypoglycemic drugs; Z79.01 Long term (current) use of anticoagulants
CPT/HCPCS: 36569; 36600; 71010; 71020; 76937; 80048; 80053; 82272; 82607; 82728; 82805; 82948; 83540; 83550; 83605; 83735; 83880; 84100; 84295; 84443; 84484; 85025; 85027; 85610; 85730; 93005; 93306; 93308; 94640; 94664; 96374; G0378; J0360; J1120; J1205; J1250; J1756; J1815; J1940; J2260; J2270; J3411; J3475; J3480; J7050; J7060; J7613; P9047